=== PATIENT | female | born 1955 | race Caucasian/White ===

== ENCOUNTER 2016-10-25 06:14 | Outpatient (CLI) | payer BC ==
[~2016-10-25] VITALS: Ht 170.2 cm; Wt 82.6 kg
[2016-10-25] MEDS ORDERED: LOSA100T28 PO (09:37)
[2016-10-25] MEDS ORDERED: PARO20TA5 PO (09:37)
== END 2016-10-25 09:42 ==
LOC: PREOP 06:14
PROVIDERS: ATTEND Surgery
DX: Z01.818 Encounter for other preprocedural examination (principal); K92.1 Melena; Z80.0 Family history of malignant neoplasm of digestive organs

== ENCOUNTER 2016-10-27 13:10 | Day surgery (SDC) | payer BC ==
[~2016-10-27] VITALS: Ht 170.2 cm; Wt 82.6 kg
[~2016-10-27 13:10] MED LIST: LOSA100T28 PO; PARO20TA5 PO
--- OUTSIDE RECORDS SUMMARY | 2016-10-27 13:14 | XMS REPORT | Continuity of Care Document ---
Author Author [facility] Organization [facility] Address Unknown Phone Unavailable Allergies Active Description Code Type Severity Reaction Onset Reported/Identified Relationship to Patient Clinical Status Yes NKANo Known Allergies NKA Miscellaneous Allergy Unknown N/ A 12/06/2005 Medications Problems Date Dx Coded Attending Type Code Diagnosis Diagnosed By 08/31/2014 Ot V76.12 08/31/2014 Ot 787.91 08/31/2014 Ot 789.06 09/07/2014 DINO ARNOLD, ALISHA Ot 790.5 09/18/2014 DINO ARNOLD, ALISHA Ot 790.5 Procedures Results Encounters ACCT No. Visit Date/Time Discharge Status Pt. Type Provider Facility Loc./Unit Complaint [id number] 08/31/2014 10:28:00 2014 23:59:59 CLS Outpatient DINO ARNOLD, ALISHA [facility] CARD [id number] 08/31/2014 10:27:00 Document Registration [id number] 08/31/2014 10:27:00 Document Registration
[2016-10-27] MEDS ORDERED: LIDOCAINE JELLY 2% (XYLOCAINE) 5 ML TUBE MM PRN (13:15)
[2016-10-27] MEDS ORDERED: NS IV 500 ML 500 ML IV PRN (13:15)
[2016-10-27 13:20] VITALS: BP 117/70
--- NOTE | 2016-10-27 13:28 | Conscious Sedation/ASA ---
Conscious Sedation Pre-Proced Time Reviewed: 13:20 ASA Class: 2 Airway Mallampati Classification: (ham[place] appropriate class) I. II. III, IV Lungs Heart ASA score ASA 1: a normal healthy patient ASA 2: a patient with a mild systemic disease (mid diabetes, controlled hypertension, obesity ASA 3: a patient with a severe systemic disease that limits activity (angina , COPD, prior Myocardial infarction) ASA 4: a patient with an incapacitating disease that is a constant threat to life (CHF, renal failure) ASA 5: a moribund patient not expected to survive 24 hrs. (ruptured aneurysm) ASA 6: a declared brain patient whose organs are being harvested. For emergent operations, add the letter E after the classification Grade 2 Sedation Plan: Analgesia, Amnesia, Plan communicated to team members, Discussed options with patient/fam, Discussed risks with patient/fam Note The patient is an appropriate candidate to undergo the planned procedure, sedation, and anesthesia. The patient immediately re-assessed prior to indication. RICHELLE DEMARCO MD Oct 27, 2016 1:28 pm
--- NOTE | 2016-10-27 13:29 | Progress Note-Pre Operative ---
Pre-Operative Progress Note H&P Reviewed The H&P was reviewed, patient examined and no changes noted. Date Seen by Provider: Oct 27, 2016 Time Seen by Provider: 13:20 Date H&P Reviewed: Oct 27, 2016 Time H&P Reviewed: 13:20 Pre-Operative Diagnosis: family hx colon ca, rectal bleed RICHELLE DEMARCO MD Oct 27, 2016 1:29 pm
[2016-10-27] MEDS ORDERED: ACETAMINOPHEN 325 MG TABLET/CAPLET (TYLENOL) PO PRN (13:30)
[2016-10-27] MEDS ORDERED: HYDROcodone/APAP 5 MG/325 MG (LORTAB) TAB PO PRN (13:30)
[2016-10-27] MEDS ORDERED: morphine INJ 10 MG/ML 1ML (SYR OR VIAL) IV PRN (13:30)
[2016-10-27] MEDS ORDERED: ONDANSETRON 4 MG/2 ML (SDV) Z0FRAN IV PRN (13:30)
[2016-10-27] MEDS ORDERED: MIDAZOLAM 2 MG/2 ML (VERSED) VIAL ONE ×6 (14:43→15:22)
[2016-10-27] MEDS ORDERED: fentaNYL INJECTION 100 MCG/2 ML AMP ONE ×2 (14:43)
[2016-10-27] MEDS ORDERED: LIDOCAINE JELLY 2% (XYLOCAINE) 5 ML TUBE ONE (14:44)
[2016-10-27] MEDS: fentaNYL INJECTION 100 MCG/2 ML AMP IVP PRN ×4 (15:03→15:34)
[2016-10-27] MEDS: MIDAZOLAM 2 MG/2 ML (VERSED) VIAL IVP PRN ×5 (15:04→15:33)
--- NOTE | 2016-10-27 15:47 | Progress Note-Post Operative ---
Post-Operative Progess Note Surgeon (s)/Office Support (s) Surgeon RICHELLE DEMARCO MD Office Support: none Pre-Operative Diagnosis family hx colon ca, rectal bleed Post-Operative Diagnosis chronic stage 2 ext and int hemorrhoids. Procedure & Operative Findings Date of Procedure 10/27/16 Procedure Performed/Findings Colonoscopy Anesthesia Type CS Estimated Blood Loss Estimated blood loss (mL): minimal Specimens/Packing Specimens Removed none RICHELLE DEMARCO MD Oct 27, 2016 3:47 pm
--- NOTE | 2016-10-27 15:48 | Discharge Inst-Surgical ---
D/C Lap Instructions-DAV Follow Up 5 years Activity as tolerated High Fiber Diet 25g or more per day Avoid Alcohol, Caffeine, Spicy [place] and Acid foods. Drink 64 fluid oz or more of fluids per day. Symptoms to Report: Fever over 101 degree F, Nausea/Vomiting If any problems/questions: Contact your physician or go to Emergency Room RICHELLE DEMARCO MD Oct 27, 2016 3:48 pm
[2016-10-27 16:05] VITALS: BP 111/63
[2016-10-27 16:35] VITALS: BP 142/76
[2016-10-27 16:40] VITALS: BP 142/76
--- NOTE | 2016-10-29 14:50 | OPERATIVE REPORT ---
DATE OF SERVICE: 10/27/2016 ATTENDING PRIMARY CARE PHYSICIAN: Dr. Sridhar Olsen. PREOPERATIVE DIAGNOSES: Family history of colon cancer, rectal bleeding. POSTOPERATIVE DIAGNOSIS: Chronic stage II external and internal hemorrhoids. The remainder of the rectum and colon were normal. PROCEDURE PERFORMED: Colonoscopy. SURGEON: Richelle Demarco MD ANESTHESIA: Conscious sedation. ESTIMATED BLOOD LOSS: Minimal. FINDINGS: Chronic stage II external and internal hemorrhoids, not actively edematous, nor inflamed, and no bleeding. The remainder of the rectum and colon were normal. There were no diverticulosis as well as no mucosal inflammatory changes or any active bleeding identified. DISPOSITION: The patient tolerated the procedure well. INDICATIONS: The patient is a 60-year-old female, who reports that she has had noticed some small amounts of self-limited red blood per rectum easily on the toilet tissue after having a bowel movement. She also reports that she does have occasional episodes of constipation. She has had colonoscopies done in the past with the last one done in 2011, which she believes to be normal. She does have a family history of colon cancer as well. DESCRIPTION OF PROCEDURE: The patient was brought to the endoscopy suite, laid in the left lateral decubitus position. After adequate IV pain and sedating medications and conscious sedation anesthesia, a digital rectal examination was performed. Chronic stage II external and internal hemorrhoids were identified, which were not actively edematous, nor inflamed and no bleeding. Normal sphincter tone was felt and there were no palpable masses. The endoscope was then intubated into the anus and rectum was gently insufflated. The endoscope was then advanced to the valves of [place]ero in the rectum with no polyps or any neoplasm identified. We then proceeded through the sigmoid colon where no diverticulosis identified. The endoscope was then advanced through the remainder of the descending, transverse, and ascending colon as well as to the cecum. These segments were normal. There were no polyps or any neoplasm identified as well as no mucosal inflammatory changes nor any active bleeding identified throughout the colon or rectum. The endoscope was then slowly withdrawn while taking a second look and suctioning of residual air with no additional findings. The patient tolerated the procedure well. We will have her continue with medical management with a high-fiber diet with at least 25 to 30 grams of fiber per day as well as at least 64 fluid ounces of water daily to promote soft stools on a daily basis. Due to her family history of colon cancer, we will recommend a followup colonoscopy in 5 years. Job ID: [id number] DocumentID: [id number] Dictated Date: 10/27/2016 15:47:05 Hat Mender Date: 10/28/2016 16:02:32 Dictated By: RICHELLE DEMARCO MD MTDD
== END 2016-10-27 16:40 | disposition home or self-care (01) ==
LOC: ENDO 13:10
PROVIDERS: ATTEND Surgery
DX: K62.5 Hemorrhage of anus and rectum (principal); K64.1 Second degree hemorrhoids; Z80.0 Family history of malignant neoplasm of digestive organs; I10 Essential (primary) hypertension; Z79.899 Other long term (current) drug therapy

== ENCOUNTER 2019-12-12 13:04 | Outpatient (RCR) | payer BC ==
[~2019-12-12 13:04] MED LIST changes: -LOSA100T28 PO; +LOSA100T57 PO
[2019-12-15] MEDS ORDERED: BACL5TAB PO (16:25)
[2019-12-15] MEDS ORDERED: TRAM50TA3 PO (16:25)
[2019-12-15] MEDS ORDERED: MELO15TA39 PO (16:25)
[2019-12-18] MEDS ORDERED: CALC300T4 PO (11:30)
[2019-12-18] MEDS ORDERED: IBUP-2473 PO (11:34)
[2019-12-24] MEDS ORDERED: TRAM50TA3 PO (11:57)
== END 2019-12-31 | disposition home or self-care (01) ==
PROVIDERS: ATTEND Orthopaedic Surgery Sports Medicine
DX: S32.512A Fracture of superior rim of left pubis, initial encounter for closed fracture (principal); X58.XXXA Exposure to other specified factors, initial encounter

== ENCOUNTER 2019-12-14 23:02 | Inpatient (IN) | payer BC ==
[~2019-12-14] VITALS: Ht 170 cm; Wt 90.6 kg
[2019-12-14] MEDS ORDERED: ONDANSETRON 4 MG/2 ML (SDV) Z0FRAN IVP ONE (23:15)
[2019-12-14] MEDS ORDERED: FAMOTIDINE 20MG/2ML IV (PEPCID) IVP ONE (23:15)
[2019-12-14] MEDS ORDERED: PANTOPRAZOLE 40 MG (PROTONIX) VIAL IV ONE (23:15)
--- NOTE | 2019-12-14 23:23 | NUR ---
Bruising and mild swelling noted to patient's L confucianism. Patient reports when she was in the restroom she became dizzy and hit her head on the bathroom counter.
[2019-12-14 23:25] LABS: BASOPHILS % (AUTO) 1 % (0-10); EOSINOPHILS # (AUTO) 0.3 10^3/uL (0.0-0.3); EOSINOPHILS % (AUTO) 9 % (0-10); HEMATOCRIT 24 % (35-52); LYMPHOCYTES # (AUTO) 0.9 10^3/uL (1.0-4.0); LYMPHOCYTES % (AUTO) 24 % (12-44); MEAN CORPUSCULAR HEMOGLOBIN 33 pg (25-34); MEAN CORPUSCULAR HGB CONC 34 g/dL (32-36); MEAN CORPUSCULAR VOLUME 97 fL (80-99); MEAN PLATELET VOLUME 9.1 fL (9.0-12.2); MONOCYTES # (AUTO) 0.4 10^3/uL (0.0-1.0); MONOCYTES % (AUTO) 11 % (0-12); NEUTROPHILS # (AUTO) 2.1 10^3/uL (1.8-7.8); NEUTROPHILS % (AUTO) 56 % (42-75); PLATELET COUNT 225 10^3/uL (130-400); WHITE BLOOD COUNT 3.8 10^3/uL (4.3-11.0)
--- NOTE | 2019-12-14 23:30 | NUR ---
2 liters NS infusing per EMS complete
[2019-12-14 23:46] LABS: ALBUMIN 3.1 GM/DL (3.2-4.5); CHLORIDE 99 MMOL/L (98-107); INR 1.2 (0.8-1.4); POTASSIUM 3.7 MMOL/L (3.6-5.0); SODIUM 130 MMOL/L (135-145)
[2019-12-14 23:47] LABS: CALCIUM 7.7 MG/DL (8.5-10.1)
[2019-12-14 23:49] LABS: GLUCOSE 229 MG/DL (70-105); TOTAL PROTEIN 4.7 GM/DL (6.4-8.2)
[2019-12-14 23:50] LABS: BILIRUBIN,TOTAL 0.4 MG/DL (0.1-1.0); CARBON DIOXIDE 16 MMOL/L (21-32)
[2019-12-14 23:52] LABS: ALKALINE PHOSPHATASE 81 U/L (40-136); CREATININE SERUM 0.73 MG/DL (0.60-1.30); GFR ESTIMATED > 60
[2019-12-14 23:53] LABS: BUN/CREATININE RATIO 23
[2019-12-14 23:55] LABS: ALANINE AMINOTRANSFERASE 11 U/L (0-55); MAGNESIUM 1.7 MG/DL (1.6-2.4)
[2019-12-15] VITALS (37 sets, daily range): BP systolic 64–160; BP diastolic 39–86
[2019-12-15] MEDS ORDERED: NS IV 1000 ML 1,000 ML ONE ×3 (00:01→22:40)
--- NOTE | 2019-12-15 00:05 | NUR ---
BP 81/44. Dr Cash advises to give 1 liter LR while waiting for blood products to be crossmatched.
--- NOTE | 2019-12-15 00:06 | NUR ---
Order changed to normal saline instead of LR
[2019-12-15] MEDS: NS IV 1000 ML 1,000 ML IV SCH ×2 (00:27→02:42)
--- NOTE | 2019-12-15 00:37 | NUR ---
1st unit of blood transfused. BP now 93/74
[2019-12-15] MEDS ORDERED: OCTREOTIDE INJECTION 50 MCG in NS (IVPB) 50 ML IV ONE (00:45)
[2019-12-15] MEDS ORDERED: OCTREOTIDE INJECTION 500 MCG in NS (IVPB) 99 ML IV SCH (00:45)
--- NOTE | 2019-12-15 01:06 | NUR ---
2nd unit of blood transfused at this time. BP 94/61
[2019-12-15] MEDS ORDERED: NS IV 500 ML 500 ML IV SCH (01:15)
--- NOTE | 2019-12-15 01:15 | NUR ---
Jaqui Leigh - patient's daughter
[2019-12-15] MEDS ORDERED: TRANEXAMIC ACID INJECTION 1,000 MG in NS (IVPB) 250 ML IV SCH (01:30)
[2019-12-15] MEDS ORDERED: TRANEXAMIC ACID INJECTION 1,000 MG in NS (IVPB) 100 ML IV ONE (01:30)
[2019-12-15] MEDS ORDERED: NS 100 ML (IVPB) BAG IV ONE (02:15)
[2019-12-15] MEDS ORDERED: CATHETER FLUSH 10 ML SYR IV PRN (02:15)
[2019-12-15] MEDS ORDERED: IOHEXOL 350 MG/ML 100 ML (OMNIPAQUE 350) VIAL IV ONE (02:15)
[2019-12-15] MEDS ORDERED: HOLD METFORMIN - RECEIVED CONTRAST 20 ML VIAL IV SCH (02:15)
--- NOTE | 2019-12-15 02:45 | NUR ---
Dr Ahuja at bedside
--- NOTE | 2019-12-15 02:48 | ED GI ---
General Chief Complaint: Abdominal/GI Problems Stated Complaint: GI BLEED Nursing Triage Note: Pt to ED room1 via [facility] from home after vomiting blood. EMS and pt report large tarry stool and bright red emesis upon arrival. EMS EBL 1000mL. EMS reports BP of 60/40 en route. 2L NS infusing upon arrival to ED. Sepsis Screen: No Definite Risk Source of Information: Patient, EMS Exam Limitations: No Limitations History of Present Illness Date Seen by Provider: Dec 14, 2019 Time Seen by Provider: 23:10 Initial Comments This 64-year-old woman presents to the emergency room via EMS emergently due to hematemesis, hematochezia, and hypotension. Patient was initially minimally responsive and had only a palpable carotid pulse with no measurable blood pressure for EMS. After about 500 mL of fluid resuscitation she became alert again and began to talk. She was hypotensive for EMS reports blood pressure measurements could be obtained. Patient denies use of any blood thinning medications or any trauma. Symptoms started mid afternoon with vomiting and diarrhea. She suspected blood in both emesis and stool. She fell asleep or passed out for about 3 hours and then woke with persistent symptoms. Family found her in the state described above and activated EMS. EMS contacted to the emergency room prior to patient's arrival. Dr. Ahuja was then given notice the patient was arriving. Allergies and Home Medications Allergies Coded Allergies: No Known Drug Allergies (Unverified , 10/25/16) Home Medications Losartan Potassium 100 Mg Tablet, 100 MG PO DAILY, (Reported) Paroxetine HCl 20 Mg Tablet, 20 MG PO HS, (Reported) Patient Home Medication List Home Medication List Reviewed: Yes Review of Systems Review of Systems Constitutional: see HPI EENTM: No Symptoms Reported Respiratory: No Symptoms Reported Cardiovascular: See HPI Gastrointestinal: See HPI Genitourinary: No Symptoms Reported Musculoskeletal: no symptoms reported Skin: no symptoms reported Psychiatric/Neurological: See HPI Endocrine: No Symptoms Reported Hematologic/Lymphatic: See HPI Past Cvhgdjv-Qexqap-Kklsdu Hx Past Med/Social Hx: Reviewed Nursing Past Med/Soc Hx Patient Social History Alcohol Use: Rarely Uses Recreational Drug Use: No Smoking Status: Never a Smoker Recent Foreign Travel: No Contact w/Someone Who Travel: No Recent Infectious Disease Expo: No Recent Hopitalizations: No Seasonal Allergies Seasonal Allergies: Yes Past Medical History Surgeries: Yes Hysterectomy, Tonsillectomy Respiratory: No Cardiac: Yes Hypertension Neurological: No 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 0.0oz. 82.747216nl; 29.00 BMI Method: General Appearance: WD/WN, no apparent distress, other (decreased responsiveness, improving with fluid resuscitation) HEENT: PERRL/EOMI, normal ENT inspection, other (dry mucous membranes) Neck: normal inspection Respiratory: lungs clear, normal breath sounds, no respiratory distress Cardiovascular: regular rate, rhythm, no edema, no murmur Gastrointestinal: normal bowel sounds, non tender, soft Extremities: normal inspection, no pedal edema Neurologic/Psychiatric: protection analyst II-XII nml as tested, no motor/sensory deficits, alert, normal mood/affect, oriented x 3 Skin: normal color, warm/dry Progress/Results/Core Measures Results/Orders Lab Results Laboratory Tests Test 12/14/19 23:10 12/15/19 02:49 Range/Units White Blood Count 3.8 L 4.3-11.0 10^3/uL Red Blood Count 2.43 L 3.80-5.11 10^6/uL Hemoglobin 8.0 L 8.4 L 11.5-16.0 g/dL Hematocrit 24 L 24 L 35-52 % Mean Corpuscular Volume 97 80-99 fL Mean Corpuscular Hemoglobin 33 25-34 pg Mean Corpuscular Hemoglobin Concent 34 32-36 g/dL Red Cell Distribution Width 11.3 10.0-14.5 % Platelet Count 225 130-400 10^3/uL Mean Platelet Volume 9.1 9.0-12.2 fL Immature Granulocyte % (Auto) 1 % Neutrophils (%) (Auto) 56 42-75 % Lymphocytes (%) (Auto) 24 12-44 % Monocytes (%) (Auto) 11 0-12 % Eosinophils (%) (Auto) 9 0-10 % Basophils (%) (Auto) 1 0-10 % Neutrophils # (Auto) 2.1 1.8-7.8 10^3/uL Lymphocytes # (Auto) 0.9 L 1.0-4.0 10^3/uL Monocytes # (Auto) 0.4 0.0-1.0 10^3/uL Eosinophils # (Auto) 0.3 0.0-0.3 10^3/uL Basophils # (Auto) 0.0 0.0-0.1 10^3/uL Immature Granulocyte # (Auto) 0.0 0.0-0.1 10^3/uL Prothrombin Time 16.0 H 12.2-14.7 SEC INR Comment 1.2 0.8-1.4 Activated Partial Thromboplast Time 27 24-35 SEC Sodium Level 130 L 135-145 MMOL/L Potassium Level 3.7 3.6-5.0 MMOL/L Chloride Level 99 98-107 MMOL/L Carbon Dioxide Level 16 L 21-32 MMOL/L Anion Gap 15 H 5-14 MMOL/L Blood Urea Nitrogen 17 7-18 MG/DL Creatinine 0.73 0.60-1.30 MG/DL Estimat Glomerular Filtration Rate > 60 BUN/Creatinine Ratio 23 Glucose Level 229 H 70-105 MG/DL Calcium Level 7.7 L 8.5-10.1 MG/DL Corrected Calcium 8.4 L 8.5-10.1 MG/DL Magnesium Level 1.7 1.6-2.4 MG/DL Total Bilirubin 0.4 0.1-1.0 MG/DL Aspartate Amino Transf (AST/SGOT) 13 5-34 U/L Alanine Aminotransferase (ALT/SGPT) 11 0-55 U/L Alkaline Phosphatase 81 40-136 U/L Total Protein 4.7 L 6.4-8.2 GM/DL Albumin 3.1 L 3.2-4.5 GM/DL My Orders Orders - HAYDEE CHANCE MD Cbc With Automated Diff (12/14/19 23:13) Comprehensive Metabolic Panel (12/14/19 23:13) Magnesium (12/14/19 23:13) Protime With Inr (12/14/19 23:13) Partial Thromboplastin Time (12/14/19 23:13) Ua Culture If Indicated (12/14/19 23:13) Pantoprazole Injection (Protonix Injecti (12/14/19 23:15) Famotidine Injection (Pepcid Injection) (12/14/19 23:15) Ondansetron Injection (Zofran Injectio (12/14/19 23:15) Red Cells Leukocytes Reduced (12/14/19 23:13) Type And Screen (12/14/19 23:13) Ns Iv 1000 Ml (Sodium Chloride 0.9%) (12/15/19 00:01) Ct Head/Cervical Spine Wo (12/15/19 00:09) Red Cells Leukocytes Reduced (12/15/19 00:26) Ns (Ivpb) (Sodium C... W/Octreotide Inj (12/15/19 00:45) Octreotide Injection (Sandostatin Inje (12/15/19 00:45) Ct Abdomen/Pelvis W (12/15/19 00:59) Fresh Frozen Plasma (12/15/19 01:13) Ns Iv 500 Ml (Sodium Chloride 0.9%) (12/15/19 01:15) Ns (Ivpb) (Sodium C... W/Tranexamic Acid (12/15/19 01:30) Tranexamic Acid Injection (Cyklokapron I (12/15/19 01:30) Iohexol Injection (Omnipaque 350 Mg/Ml 1 (12/15/19 02:15) Received Contrast (Hold Metformin- Contr (12/15/19 02:15) Sodium Chloride Flush (Catheter Flush Sy (12/15/19 02:15) Ns (Ivpb) (Sodium Chloride 0.9% Ivpb Bag (12/15/19 02:15) Ns Iv 1000 Ml (Sodium Chloride 0.9%) (12/15/19 02:45) Hemoglobin And Hematocrit (12/15/19 02:48) Platelet Pheresis Lr (12/15/19 02:53) Succinylcholine Injection (Succinylcholi (12/15/19 02:51) Propofol Injection (Diprivan Injection) (12/15/19 02:51) Midazolam Injection (Versed Injection) (12/15/19 02:52) Lidocaine 2% Pf 5 Ml (Xylocaine 2% Pf) (12/15/19 02:52) Medications Given in ED Vital Signs/I&O 12/14/19 12/15/19 12/15/19 12/15/19 23:11 00:27 00:37 00:56 Temp 36.4 35.4 35.8 Pulse 101 82 82 78 Resp 28 20 24 B/P (MAP) 99/64 (76) 89/50 93/74 97/54 Pulse Ox 96 98 100 O2 Delivery Room Air Room Air Room Air Room Air 12/15/19 12/15/19 12/15/19 01:05 02:34 02:40 Temp 36.2 37.1 Pulse 81 82 85 Resp 20 20 B/P (MAP) 94/61 99/62 99/62 Pulse Ox 100 100 100 O2 Delivery Room Air Room Air Blood Pressure Mean: 74 Progress Progress Note : Progress Note There was persistent rosacea in between myself and Dr. Ahuja throughout the patient's ER care. Ration is initially responded well to 2 L of IV fluids. However, blood pressure again began to drop. 2 units of PRBC were transfused. In the meantime she was also treated with Pepcid, Protonix, TXA, and octreotide. even after the transfusions she again had rebound hypertension. A unit of plasma and a unit of platelets were ordered in addition to a third unit of blood. In the meantime she received another partial bolus of IV fluids. After patient failed resuscitation with 2 units of PRBC and 2 L of IV crystalloids, Dr. Ahuja was called in to perform emergent endoscopy. Patient was taken directly from the ER to surgery/endoscopy. She was then admitted to the ICU. CT of the abdomen and pelvis performed in the ER was suggestive of duodenal ulcer. There was concern about possible head injury during patient's episode of collapse. CT of the head and C-spine was obtained which showed no injury. Diagnostic Imaging Diagonstic Imaging: CT Plain Films/CT/US/NM/MRI: c-spine, head Comments NAME: [facility] REC#: [id number] PT STATUS: ADM IN : 1955 PHYSICIAN: HAYDEE CHANCE MD ADMIT DATE: 12/15/19/ICU Signed Date of Exam:12/15/19 CT HEAD/CERVICAL SPINE WO PROCEDURE: CT head and CT cervical spine without contrast. TECHNIQUE: Multiple contiguous axial images were obtained through the brain and cervical spine without the use of intravenous contrast. Sagittal and coronal reformations through the cervical spine were then performed. Auto Exposure Controls were utilized during the CT exam to meet ALARA standards for radiation dose reduction. INDICATION: Head and neck pain after fall. FINDINGS: The ventricles and sulci are within normal limits. No hydrocephalus. No midline shift. No mass, hemorrhage or extra-axial fluid collection. Calvarium is intact. Sinuses and mastoid air cells are clear. There is straightening of the normal cervical lordosis. There is multilevel degenerative disc disease and posterior facet arthropathy. There is no acute fracture or traumatic subluxation. Odontoids intact. Lateral masses well aligned. Prevertebral soft tissues are within normal limits. Lung apices are clear. IMPRESSION: No acute intracranial abnormality. Cervical spondylosis and multilevel degenerative disc disease without acute fracture or traumatic subluxation. Dictated by: Dictated on workstation # [id number] Dict: 12/15/19628 Trans: 12/15/19824 [facility] [id number] Interpreted by: STUART TRAORE MD Electronically signed by: STUART TRAORE MD 12/15/19824 Reviewed: Reviewed by Vt Diagonstic Imaging: CT Plain Films/CT/US/NM/MRI: abdomen, pelvis Comments NAME: TELLO [facility] REC#: [id number] PT STATUS: ADM IN : 1955 PHYSICIAN: HAYDEE CHANCE MD ADMIT DATE: 12/15/19/ICU Signed Date of Exam:12/15/19 CT ABDOMEN/PELVIS W PROCEDURE: CT abdomen and pelvis with contrast. TECHNIQUE: Multiple contiguous axial images were obtained through the abdomen and pelvis after administration of intravenous contrast. Auto Exposure Controls were utilized during the CT exam to meet ALARA standards for radiation dose reduction. All CT scans use one or more of the following dose optimizing techniques: automated exposure control, MA and/or KvP adjustment based on patient size and exam type or iterative reconstruction. INDICATION: GI bleed. FINDINGS: The heart size is normal. The lung bases are clear. The liver is normal in size without focal lesions. Gallbladder is unremarkable. No biliary duct dilatation. Spleen is normal. Pancreas, adrenal glands and kidneys are unremarkable. The aorta is nonaneurysmal. There is some heterogeneous fluid in the gastric antrum. Along the posterior aspect of the duodenal bulb is a questionable ulcer measuring 10 mm. This extends between the proximal posterior wall of the duodenum and the neck of the pancreas. Some trace fluid. Bowel gas pattern is otherwise nonspecific. There are degenerative changes in the spine. IMPRESSION: Findings highly suspect for a duodenal bulb ulcer just distal to the pylorus along the posterior wall. This is best seen on axial image 31 and 32. Recommend further evaluation with endoscopy. Dictated by: Dictated on workstation # [id number] Dict: 12/15/19625 Trans: 12/15/19847 [facility] [id number] Interpreted by: STUART TRAORE MD Electronically signed by: STUART TRAORE MD 12/15/19847 Reviewed: Reviewed by Vt Critical Care Note Critical Care Start Time: 23:10 Stop Time: 02:45 Departure Communication (Admissions) Time/Spoke to Admitting Phy: 02:08 Dr. Ahuja Impression Primary Impression: Severe anemia Additional Impressions: Upper GI bleed Hypovolemic shock Disposition: ADMITTED INPATIENT Condition: Critical Admissions Decision to Admit Reason: Admit from ER (General) Decision to Admit/Date: Dec 14, 2019 Time/Decision to Admit Time: 23:10 Departure-Patient Inst. Referrals: LAUREN DAWSON (PCP) Primary Care Physician HAYDEE CHANCE MD Dec 15, 2019 02:47
[2019-12-15] MEDS ORDERED: SUCCINYLCHOLINE INJ 100 MG/5 ML SYR/VIAL ONE (02:51)
[2019-12-15] MEDS ORDERED: proPOfol 200 MG/20 ML (DIPRIVAN) VIAL IV ONE (02:51)
[2019-12-15] MEDS ORDERED: LIDOCAINE PF 2% 5 ML (XYLOCAINE) VIAL ONE (02:52)
[2019-12-15] MEDS ORDERED: MIDAZOLAM 2 MG/2 ML (VERSED) VIAL ONE (02:52)
[2019-12-15 02:53] LABS: HEMOGLOBIN 8.4 g/dL (11.5-16.0)
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
[2019-12-15] MEDS ORDERED: LACTATED RINGERS 1,000 ML IV ONE (03:13)
[2019-12-15] MEDS: LACTATED RINGERS 1,000 ML IV SCH ×4 (03:20→19:44)
[2019-12-15] MEDS ORDERED: ONDANSETRON 4 MG/2 ML (SDV) Z0FRAN ONE ×2 (03:27→20:05)
[2019-12-15] MEDS ORDERED: PIPERACILLIN/TAZOBACTAM (BULK) 4.5 GM in NS (IVPB) 100 ML IV SCH (03:45)
[2019-12-15] MEDS ORDERED: PIPERACILLIN/TAZOBACTAM 4.5 GM in NS (IVPB) 100 ML IV ONE (04:00)
--- NOTE | 2019-12-15 04:06 | Anesthesia-General Post-Op ---
General Patient Condition Mental Status/LOC: Same as Preop Cardiovascular: Satisfactory Nausea/Vomiting: Absent Respiratory: Satisfactory Pain: Controlled Complications: Absent Post Op Complications Complications None Follow Up Care/Instructions Patient Instructions None needed. Anesthesia/Patient Condition Patient Condition Patient is doing well, no complaints, stable vital signs, no apparent adverse anesthesia problems. No complications reported per nursing. D/C home per [facility] Criteria: JOSÉ Rowley CRNA Dec 15, 2019 04:06
[2019-12-15] MEDS ORDERED: PIPERACILLIN/TAZO 4.5 GM VIAL (ZOSYN) IV ONE (04:29)
--- NOTE | 2019-12-15 04:45 | NUR ---
RECEIVED REPORT FROM [facility] RECORDER, PT POST EGD FOR GI BLEED
[2019-12-15] MEDS ORDERED: PANTOPRAZOLE INJECTION 200 MG in NS (IVPB) 100 ML IV SCH (05:00)
[2019-12-15] MEDS: MAGNESIUM 1 GM/100 ML IVPB 100 ML IV SCH (06:11)
[2019-12-15] MEDS: POTASSIUM CL 10MEQ/50ML IVPB 50 ML IV SCH (06:11)
[2019-12-15] MEDS: KCL 20 MEQ TAB (K-DUR) PO SCH (06:11)
[2019-12-15 06:37] LABS: BASOPHILS % (AUTO) 1 % (0-10); EOSINOPHILS % (AUTO) 1 % (0-10); HEMATOCRIT 27 % (35-52); HEMOGLOBIN 8.9 g/dL (11.5-16.0); LYMPHOCYTES # (AUTO) 0.5 10^3/uL (1.0-4.0); LYMPHOCYTES % (AUTO) 14 % (12-44); MEAN CORPUSCULAR HEMOGLOBIN 32 pg (25-34); MEAN CORPUSCULAR HGB CONC 34 g/dL (32-36); MEAN CORPUSCULAR VOLUME 96 fL (80-99); MEAN PLATELET VOLUME 9.1 fL (9.0-12.2); MONOCYTES # (AUTO) 0.5 10^3/uL (0.0-1.0); MONOCYTES % (AUTO) 13 % (0-12); NEUTROPHILS # (AUTO) 2.5 10^3/uL (1.8-7.8); NEUTROPHILS % (AUTO) 71 % (42-75); PLATELET COUNT 186 10^3/uL (130-400); WHITE BLOOD COUNT 3.5 10^3/uL (4.3-11.0)
--- NOTE | 2019-12-15 06:39 | Diagnostic Imaging Report ---
PROCEDURE: CT abdomen and pelvis with contrast. TECHNIQUE: Multiple contiguous axial images were obtained through the abdomen and pelvis after administration of intravenous contrast. Auto Exposure Controls were utilized during the CT exam to meet ALARA standards for radiation dose reduction. All CT scans use one or more of the following dose optimizing techniques: automated exposure control, MA and/or KvP adjustment based on patient size and exam type or iterative reconstruction. INDICATION: GI bleed. FINDINGS: The heart size is normal. The lung bases are clear. The liver is normal in size without focal lesions. Gallbladder is unremarkable. No biliary duct dilatation. Spleen is normal. Pancreas, adrenal glands and kidneys are unremarkable. The aorta is nonaneurysmal. There is some heterogeneous fluid in the gastric antrum. Along the posterior aspect of the duodenal bulb is a questionable ulcer measuring 10 mm. This extends between the proximal posterior wall of the duodenum and the neck of the pancreas. Some trace fluid. Bowel gas pattern is otherwise nonspecific. There are degenerative changes in the spine. IMPRESSION: Findings highly suspect for a duodenal bulb ulcer just distal to the pylorus along the posterior wall. This is best seen on axial image 31 and 32. Recommend further evaluation with endoscopy. Dictated by: Dictated on workstation # [id number]
--- NOTE | 2019-12-15 06:40 | Diagnostic Imaging Report ---
PROCEDURE: CT head and CT cervical spine without contrast. TECHNIQUE: Multiple contiguous axial images were obtained through the brain and cervical spine without the use of intravenous contrast. Sagittal and coronal reformations through the cervical spine were then performed. Auto Exposure Controls were utilized during the CT exam to meet ALARA standards for radiation dose reduction. INDICATION: Head and neck pain after fall. FINDINGS: The ventricles and sulci are within normal limits. No hydrocephalus. No midline shift. No mass, hemorrhage or extra-axial fluid collection. Calvarium is intact. Sinuses and mastoid air cells are clear. There is straightening of the normal cervical lordosis. There is multilevel degenerative disc disease and posterior facet arthropathy. There is no acute fracture or traumatic subluxation. Odontoids intact. Lateral masses well aligned. Prevertebral soft tissues are within normal limits. Lung apices are clear. IMPRESSION: No acute intracranial abnormality. Cervical spondylosis and multilevel degenerative disc disease without acute fracture or traumatic subluxation. Dictated by: Dictated on workstation # [id number]
[2019-12-15 06:59] LABS: CHLORIDE 105 MMOL/L (98-107); POTASSIUM 4.4 MMOL/L (3.6-5.0); SODIUM 135 MMOL/L (135-145)
[2019-12-15 07:00] LABS: CALCIUM 7.8 MG/DL (8.5-10.1)
[2019-12-15 07:01] LABS: GLUCOSE 110 MG/DL (70-105)
[2019-12-15 07:02] LABS: CARBON DIOXIDE 19 MMOL/L (21-32)
[2019-12-15 07:05] LABS: CREATININE SERUM 0.59 MG/DL (0.60-1.30); GFR ESTIMATED > 60
[2019-12-15 07:06] LABS: BUN/CREATININE RATIO 29
--- NOTE | 2019-12-15 09:18 | Progress Note - Surgery ---
GRUPO MOREL MED STUDENT 12/15/19 0918: Subjective Date Seen by a Provider: Dec 15, 2019 Time Seen by a Provider: 08:25 Subjective/Events-last exam Patient is alert and oriented x 4. VSS per ICU monitor. Denies nausea, vomiting, melena, or hematochezia since admit over night. Mild abdominal discomfort upon palpation of the abdomen. Abdomen soft to palpation. BS positive x 4 quadrants. Tolerating ice chips well. Patient reports a mild headache, fatigue, and mild weakness this morning. Hemoglobin 8.9 this morning. Review of Systems General: Fatigue HEENT: Head Aches Pulmonary: No Dyspnea, No Cough Cardiovascular: No: Chest Pain Gastrointestinal: No: Nausea, Vomiting, Melena, Hematochezia Genitourinary: No Dysuria Neurological: No: Weakness, Numbness Focused Exam Lactate Level 12/15/19 06:20: Lactic Acid Level 1.23 Lactic Acid Level Laboratory Tests Test 12/15/19 06:20 Lactic Acid Level 1.23 MMOL/L (0.50-2.00) Objective Exam Vital Signs Date Time Temp Pulse Resp B/P (MAP) Pulse Ox O2 Delivery O2 Flow Rate FiO2 12/15/19 08:00 37.3 12/15/19 06:00 93 11 108/54 (72) 94 Room Air 12/15/19 05:40 98 Room Air 12/15/19 05:20 37.5 96 136/40 (72) 97 Room Air 12/15/19 05:00 96 119/52 (74) 97 Room Air 12/15/19 04:45 37.8 83 18 121/54 (76) 99 Room Air 12/15/19 03:47 97 12/15/19 03:08 37.1 85 20 99/62 (74) 100 Room Air 12/15/19 02:40 85 20 99/62 100 12/15/19 02:34 37.1 82 20 99/62 100 Room Air 12/15/19 01:05 36.2 81 20 94/61 100 Room Air 12/15/19 00:56 78 24 97/54 100 Room Air 12/15/19 00:37 35.8 82 20 93/74 Room Air 12/15/19 00:27 35.4 82 20 89/50 98 Room Air 12/14/19 23:11 36.4 101 28 99/64 (76 96 Room Air Capillary Refill : Less Than 3 Seconds General Appearance: No Apparent Distress, WD/WN HEENT: PERRL/EOMI Neck: Non Tender, Supple Respiratory: Lungs Clear, Normal Breath Sounds, No Accessory Muscle Use, No Respiratory Distress Cardiovascular: Regular Rate, Rhythm, No Edema Peripheral Pulses: 3+ Carotid (R); 2+ Dorsalis Pedis (R), 2+ Left Dors-Pedis (L), 2+ Radial Pulses (R), 2+ Radial Pulses (L) Gastrointestinal: normal bowel sounds, soft, no organomegaly, no pulsatile mass, tenderness (mild tenderness to deep palpation diffusely), hernia (small umbilical) Neurologic/Psychiatric: Alert, Oriented x3, Normal Mood/Affect Skin: Normal Color, Warm/Dry Results Lab Laboratory Tests 12/14/19 23:10: White Blood Count 3.8L, Red Blood Count 2.43L, Hemoglobin 8.0L, Hematocrit 24L, Mean Corpuscular Volume 97, Mean Corpuscular Hemoglobin 33, Mean Corpuscular Hemoglobin Concent 34, Red Cell Distribution Width 11.3, Platelet Count 225, Mean Platelet Volume 9.1, Immature Granulocyte % (Auto) 1, Neutrophils (%) (Auto) 56, Lymphocytes (%) (Auto) 24, Monocytes (%) (Auto) 11, Eosinophils (%) (Auto) 9, Basophils (%) (Auto) 1, Neutrophils # (Auto) 2.1, Lymphocytes # (Auto) 0.9L, Monocytes # (Auto) 0.4, Eosinophils # (Auto) 0.3, Basophils # (Auto) 0.0, Immature Granulocyte # (Auto) 0.0, Prothrombin Time 16.0H, INR Comment 1.2, Activated Partial Thromboplast Time 27, Sodium Level 130L, Potassium Level 3.7, Chloride Level 99, Carbon Dioxide Level 16L, Anion Gap 15H, Blood Urea Nitrogen 17, Creatinine 0.73, Estimat Glomerular Filtration Rate > 60, BUN/Creatinine Ratio 23, Glucose Level 229H, Calcium Level 7.7L, Corrected Calcium 8.4L, Magne sium Level 1.7, Total Bilirubin 0.4, Aspartate Amino Transf (AST/SGOT) 13, Alanine Aminotransferase (ALT/SGPT) 11, Alkaline Phosphatase 81, Total Protein 4.7L, Albumin 3.1L 12/15/19 02:49: Hemoglobin 8.4L, Hematocrit 24L 12/15/19 06:20: White Blood Count 3.5L, Red Blood Count 2.76L, Hemoglobin 8.9L, Hematocrit 27L, Mean Corpuscular Volume 96, Mean Corpuscular Hemoglobin 32, Mean Corpuscular Hemoglobin Concent 34, Red Cell Distribution Width 12.9, Platelet Count 186, Mean Platelet Volume 9.1, Immature Granulocyte % (Auto) 1, Neutrophils (%) (Auto) 71, Lymphocytes (%) (Auto) 14, Monocytes (%) (Auto) 13H, Eosinophils (%) (Auto) 1, Basophils (%) (Auto) 1, Neutrophils # (Auto) 2.5, Lymphocytes # (Auto) 0.5L, Monocytes # (Auto) 0.5, Eosinophils # (Auto) 0.0, Basophils # (Auto) 0.0, Immature Granulocyte # (Auto) 0.0, Sodium Level 135, Potassium Level 4.4, Chloride Level 105, Carbon Dioxide Level 19L, Anion Gap 11, Blood Urea Nitrogen 17, Creatinine 0.59L, Estimat Glomerular Filtration Rate > 60, BUN/Creatinine Ratio 29, Glucose Level 110H, Calcium Level 7.8L, Lactic Acid Level 1.23 Assessment/Plan Assessment/Plan Assessment/Plan Hypotension Hematemesis Melena Anemia ?Duodenal bulb ulcer with perforation Hyponatremia Pelvic Fx - old Continue to monitor VSS per protocol. Continue IVF maintenance as ordered until taking po well. Continue to monitor hemoglobin and hematocrit. Continue to monitor for further signs and symptoms of bleeding necessitating intervention. Continue IV antibiotics, protonix, and tranexamic acid Clinical Quality Measures DVT/VTE Risk/Contraindication: Risk Factor Score Per Nursin RFS Level Per Nursing on Admit: 2=Moderate SELVIN GEORGES DO 12/22/19 0818: Supervisory-Addendum Brief Verification & Attestation Participated in pt care: other Personally performed: other Care discussed with: other Procedures: n/a I did my own note on this day. GRUPO MOREL MED STUDENT Dec 15, 2019 09:18 SELVIN GEORGES DO Dec 22, 2019 08:18
[2019-12-15] MEDS: FLUCONAZOLE 200 MG/100 ML 50 ML, EMPTY IV BAG (PVC) 1 EA IV SCH ×2 (09:32)
[2019-12-15] MEDS: PANTOPRAZOLE INJECTION 200 MG in NS (IVPB) 100 ML IV SCH (09:32)
--- NOTE | 2019-12-15 09:54 | OPERATIVE REPORT ---
DATE OF SERVICE: 12/15/2019 PREOPERATIVE DIAGNOSES: Hematemesis, hypotension, anemia and melena. POSTOPERATIVE DIAGNOSES: Hematemesis, hypotension, anemia, melena and duodenal bulb ulcer, currently not bleeding. PROCEDURE PERFORMED: EGD. SURGEON: Johnnie Ahuja DO CHILD THERAPIST: None. ANESTHESIA: General endotracheal tube. SPECIMENS: None. BLOOD LOSS: None. FLUIDS: Per anesthesia. POSTOPERATIVE CONDITION: Stable. INDICATION FOR PROCEDURE: The patient is a 64-year-old female, who came in with history of hematemesis just prior to coming in. She was found to be anemic, hemoglobin of 8, hypotensive, also having melanotic stools and with a CT showed questionable duodenal bulb ulcer, which also looked to me like a perforation. FINDINGS: The patient did have a duodenal bulb ulcer. She actually had two, both of them showed a clot, one looked like it was healed already. The other one had clot with some questionable bleeding, but it looked almost like a very, very slow ooze. There was no blood in the stomach and no blood in the duodenum. PROCEDURE NOTE: After informed consent was obtained, the patient was brought to the endoscopy suite. She was intubated and on her back. We placed the EGD scope, placed down the mouth through the esophagus into the stomach. Upon entering into the stomach, we did not see any blood. Pushed just past the pylorus and then anteriorly saw a healed ulcer with sequela of healing and then posteriorly looked like it had gone possibly a perforation. There was a clot, question looked like it may have been some very minimal scant oozing of blood from underneath, but there was no obvious active bleeding. Pushed down past in the duodenum into the second and at least third portion of the duodenum, there was no bleeding here. No ulcers seen throughout here, pulled back. Again, did not really see any active bleeding. Took pictures of all of the ulcers and at this point, I then pulled the scope into the stomach, I retroflexed the scope, saw a small hiatal hernia, did not really see any gastritis and at this point, suctioned all the air out of the stomach and then pulled the scope up the esophagus and out the mouth. The patient tolerated the procedure. She was transferred to ICU for recovery. Job ID: [id number] DocumentID: [id number] Dictated Date: 12/15/2019 03:49:47 Manager Of Construction Date: 12/15/2019 08:17:49 Dictated By: JOHNNIE AHUJA DO
[2019-12-15] MEDS: PIPERACILLIN/TAZO 4.5 GM/NS 100 ML IV SCH ×4 (10:40→17:22)
--- NOTE | 2019-12-15 14:13 | NUR ---
CM/SS: Visited with pt as per Social Service Consult Plan: Pt to return home with no identified services Summary: Pt is sitting up in the recliner at the time of the visit. Pt reports feeling better. Pt is able to explain what happened to her and what brought her into the hospital. 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 Pt indicates she does not need help in the home and that they have been managing prior her hospital stay. She can not think of anything she would need at the time at discharge. She is advised if she would need something, to let the RN know and we can get what is needed. She verbalizes understanding, and thanks this worker for visiting. This worker will follow up.
[2019-12-15] MEDS ORDERED: TRAM50TA3 PO (16:25)
[2019-12-15] MEDS ORDERED: BACL5TAB PO (16:25)
[2019-12-15] MEDS ORDERED: MELO15TA39 PO (16:25)
--- NOTE | 2019-12-15 16:25 | NUR ---
1500 DUE TO CHANGES IN STAFFING CARE OF PT TO Flori VEGA RN, REPORT GIVEN AT BEDSIDE, 1430 DR GEORGES NOTIFIED THAT PT HAD A MODERATE AMOUNT OF DARK OLD STOOL . NO NEW ORDERS RECEIVED. PT'S VSS REMAINED STABLE.
--- NOTE | 2019-12-15 16:27 | NUR ---
I SPOKE WITH THE PTS (SADIA), WENT THRU THE EXT MED HISTORY AND CALLED [facility] TO COMPLETE THE MED REC THE PT HAD MED BOTTLES FOR MOST HER MEDICATIONS IN HER ROOM, HOWEVER WHEN I SPOKE WITH SADIA HE MENTIONED A MEDICATION FOR IBS. WHEN I WAS GOING IN THE PT ROOM ODALYS SAPP SAID THERE WAS MED BOTTLES IN THE ROOM AND ALSO MENTIONED IBS MEDICATIONS. HOWEVER [facility] HAS NEVER FILLED ANY MED FOR IBS, PT WAS NOT ABLE TO GIVE ME ANY INFORMATION ABOUT HER MEDICATIONS AND WHEN I TRIED TO CALL SADIA I HAD TO LEAVE A VOICE MAIL. I WILL FOLLOW UP TOMORROW AND TRY AND FIND OUT ABOUT THE IBS MEDICATION Addendum: 12/18/19 at 1141 by DESIREE MCCURDY [facility] I WAS ABLE TO SPEAK WITH THE PT AND GET CLARIFICATION TO COMPLETE THE MED REC ACCORDING TO THE PT SHE TAKES PAROXETINE 20MG HS FOR IBS (FROM DR. SUN) OTC MEDS: MIHAELA IBUPROFEN- PT SAYS THAT DURING HER CURRENT ADMISSION SHE WAS TOLD THIS MAY HAVE CONTRIBUTED TO SOME OF HER ISSUES THAT CAUSED HER TO BE ADMITTED. I DID WANT TO PUT THIS ON THE MED REC DUE TO THE PT TAKING PRIOR TO COMING IN AND IF THE PROVIDER WANTS IT STOPPED THEM I WANTED IT ON THE MED REC FOR PROPER DISCONTINUATION ON DISCHARGE
--- NOTE | 2019-12-15 16:33 | NUR ---
THIS NURSE NOTIFIED DR GEORGES PT HAS HAD MULTIPLE LARGE BLOODY BOWEL MOVEMENTS. BP HAS DROPPED AND IS NOW 96/54 AND HR IS 88. PT FEELS DIZZY AND IS NOW CONSTANTLY HAVING BLOODY BOWEL MOVEMENTS. NO NEW ORDERS AT THIS TIME. WILL CONTINUE TO MONITOR.
--- NOTE | 2019-12-15 17:30 | NUR ---
THIS NURSE NOTIFIED DR GEORGES PT SBP HAS BEEN 80S-90S. ORDER GIVEN FOR 1 LITER OF LR. SEE ORDER HX. WILL CONTINUE TO MONITOR.
[2019-12-15] MEDS ORDERED: LACTATED RINGERS 1,000 ML IV SCH (17:45)
[2019-12-15] MEDS: ONDANSETRON 4 MG/2 ML (SDV) Z0FRAN IVP PRN (20:05)
[2019-12-15] MEDS ORDERED: ONDANSETRON 4 MG (ZOFRAN) ORAL DISSOLVE TAB ONE (20:05)
[2019-12-15] MEDS ORDERED: NOREPINEPHRINE 4 MG/250 ML 250 ML IV ONE (20:17)
[2019-12-15] MEDS ORDERED: NS IV 500 ML 500 ML ONE ×4 (20:21→22:33)
[2019-12-15 20:43] LABS: HEMOGLOBIN 5.3 g/dL (11.5-16.0)
[2019-12-15] MEDS: NOREPINEPHRINE 4 MG/250 ML 250 ML IV SCH (21:00)
[2019-12-15] MEDS ORDERED: LORazepam INJ 2 MG/ML (ATIVAN) VIAL ONE (22:24)
[2019-12-15] MEDS ORDERED: NS (IVPB) 100 ML ONE ×3 (22:54→23:52)
[2019-12-15] MEDS ORDERED: VASOPRESSIN INJECTION 20 UNIT/ML VIAL ONE (22:54)
[2019-12-15] MEDS ORDERED: PHENYLEPHRINE INJ 10 MG/ML (FOR DRIP KITS ONLY) ONE (23:06)
[2019-12-15] MEDS ORDERED: NS (IVPB) 250 ML ONE (23:06)
[2019-12-15] MEDS ORDERED: BUP/EPI 0.5% 1:200,000 (SENSORCAINE) 30 ML VIAL ONE (23:07)
--- NOTE | 2019-12-15 23:31 | Progress Note-Post Operative ---
Post-Operative Progess Note Surgeon (s)/Medical Affairs Manager (s) Surgeon SELVIN GEORGES DO Medical Affairs Manager: none Pre-Operative Diagnosis hypotension, anemia Post-Operative Diagnosis same Procedure & Operative Findings Date of Procedure 12/15/19 Procedure Performed/Findings PROCEDURE: [Right] internal jugular central line placement using ultrasound guidance. COMPLICATIONS: None. INDICATIONS: The patient is a 64 year old female [with rectal bleed, anemia and hypotension]. Patient understands the risks and benefits of port placement and wished to proceed with the procedure. Consent was signed on the chart. PROCEDURE: The patient was in her bed in the ICU, was prepped and draped in the sterile fashion. A surgical pause was performed. Ultrasound was used to locate the internal jugular vein. Once located anesthetic was infiltrated above it. 18 Gauge finder needle with negative inspiration was advanced and dark nonpulsatile blood was withdrawn. The wire was inserted. US assured proper placement. The needle was removed. A [#11] blade scalpel was used to make a stab incision over the guidewire. The dilator sheath was then advanced over the wire using the Seldinger technique and then removed. The Groshong catheter was inserted over the wire using the seldinger technique and then the wire was removed. The central line was then accessed in all three ports and then flushed without difficulty. It was then sutured in place with 3-0 silk. The patient tolerated the procedure well without complication. Anesthesia Type local lidocaine Estimated Blood Loss Estimated blood loss (mL): scant Specimens/Packing Specimens Removed none SELVIN GEORGES DO Dec 15, 2019 23:31
--- NOTE | 2019-12-15 23:32 | Progress Note-Post Operative ---
Post-Operative Progess Note Surgeon (s)/Peace Officer (s) Surgeon SELVIN GEORGES DO Peace Officer: none Pre-Operative Diagnosis hypotension, anemia Post-Operative Diagnosis same, visualized bleeding from ulcer Procedure & Operative Findings Date of Procedure 12/15/19 Procedure Performed/Findings EGD Anesthesia Type GET Estimated Blood Loss Estimated blood loss (mL): from procedure none, copious amounts from the bleeding ulcer Specimens/Packing Specimens Removed none SELVIN GEORGES DO Dec 15, 2019 23:32
--- NOTE | 2019-12-15 23:38 | Progress Note - Surgery ---
Subjective Time Seen by a Provider: 22:28 Subjective/Events-last exam I spent over an hour of critical care time; managing the pressors, transfusing blood and giving IV fluids. Pt hypotensive and having seizure like activity; started EtOH withdrawal protocol. Review of Systems General: Fatigue, Malaise Pulmonary: Dyspnea; No Pleuritic Chest Pain Cardiovascular: No: Chest Pain, Palpitations Gastrointestinal: Vomiting, Abdominal Pain, Hematochezia Focused Exam Lactate Level 12/15/19 06:20: Lactic Acid Level 1.23 Objective Exam Vital Signs Date Time Temp Pulse Resp B/P (MAP) Pulse Ox O2 Delivery O2 Flow Rate FiO2 12/15/19 22:26 87 12/15/19 21:46 36.1 80 20 107/55 100 Nasal Cannula 2.00 12/15/19 21:28 36.4 88 16 92/73 100 Nasal Cannula 2.00 12/15/19 21:19 36.2 88 16 97/52 100 Nasal Cannula 2.00 12/15/19 21:05 36.6 101 64/39 12/15/19 19:51 37.4 12/15/19 18:00 75 14 97/49 (65) 96 Room Air 12/15/19 17:00 96 15 97/52 (67) 100 Room Air 12/15/19 16:00 96 Room Air 12/15/19 16:00 103 30 92/58 (69) Room Air 12/15/19 16:00 36.4 12/15/19 15:00 69 22 159/82 (107) Room Air 12/15/19 13:00 72 15 153/73 (99) 97 Room Air 12/15/19 12:43 70 12/15/19 12:39 96 Room Air 12/15/19 12:00 82 32 151/79 (103) 97 Room Air 12/15/19 11:00 79 7 160/75 (103) 98 Room Air 12/15/19 10:00 85 17 98 Room Air 12/15/19 09:00 88 17 128/59 (82) 97 Room Air 12/15/19 08:10 94 Room Air 12/15/19 08:00 37.3 12/15/19 08:00 93 15 129/63 (85) 97 Room Air 12/15/19 07:00 79 16 109/49 (69) 95 Room Air 12/15/19 06:35 88 12/15/19 06:00 93 11 108/54 (72) 94 Room Air 12/15/19 05:40 98 Room Air 12/15/19 05:20 37.5 96 136/40 (72) 97 Room Air 12/15/19 05:00 96 119/52 (74) 97 Room Air 12/15/19 04:45 38 24 121/54 (76) 97 Room Air 12/15/19 04:45 Room Air 12/15/19 04:45 37.8 83 18 121/54 (76) 99 Room Air 12/15/19 04:40 24 121/54 (76) 97 Room Air 12/15/19 04:40 Room Air 12/15/19 04:30 20 124/60 (81) 95 Room Air 12/15/19 04:25 Room Air 12/15/19 04:20 18 126/69 (88) 95 Room Air 12/15/19 04:10 16 131/65 (87) 93 Room Air 12/15/19 04:10 Room Air 12/15/19 04:00 20 121/86 (98) 95 Room Air 12/15/19 03:55 Room Air 12/15/19 03:50 20 111/49 (69) 95 Room Air 12/15/19 03:47 97 12/15/19 03:43 38.1 16 126/69 (88) 99 Room Air 12/15/19 03:43 Room Air 12/15/19 03:08 37.1 85 20 99/62 (74) 100 Room Air 12/15/19 02:40 85 20 99/62 100 12/15/19 02:34 37.1 82 20 99/62 100 Room Air 12/15/19 01:05 36.2 81 20 94/61 100 Room Air 12/15/19 00:56 78 24 97/54 100 Room Air 12/15/19 00:37 35.8 82 20 93/74 Room Air 12/15/19 00:27 35.4 82 20 89/50 98 Room Air Capillary Refill : Less Than 3 SecondsLess Than 3 Seconds General Appearance: Severe Distress HEENT: PERRL/EOMI Respiratory: Lungs Clear, Normal Breath Sounds, No Accessory Muscle Use, No Respiratory Distress Cardiovascular: No Edema, Tachycardia Peripheral Pulses: 3+ Carotid (R); 2+ Dorsalis Pedis (R), 2+ Left Dors-Pedis (L), 2+ Radial Pulses (R), 2+ Radial Pulses (L) Gastrointestinal: non tender, soft Neurologic/Psychiatric: Disoriented Skin: Cool, Cyanosis, Pallor Results Lab Laboratory Tests 12/15/19 02:49: Hemoglobin 8.4L, Hematocrit 24L 12/15/19 06:20: Hemoglobin 8.9L, Hematocrit 27L, White Blood Count 3.5L, Red Blood Count 2.76L, Mean Corpuscular Volume 96, Mean Corpuscular Hemoglobin 32, Mean Corpuscular Hemoglobin Concent 34, Red Cell Distribution Width 12.9, Platelet Count 186, Mean Platelet Volume 9.1, Immature Granulocyte % (Auto) 1, Neutrophils (%) (Auto) 71, Lymphocytes (%) (Auto) 14, Monocytes (%) (Auto) 13H, Eosinophils (%) (Auto) 1, Basophils (%) (Auto) 1, Neutrophils # (Auto) 2.5, Lymphocytes # (Auto) 0.5L, Monocytes # (Auto) 0.5, Eosinophils # (Auto) 0.0, Basophils # (Auto) 0.0, Immature Granulocyte # (Auto) 0.0, Sodium Level 135, Potassium Level 4.4, Chloride Level 105, Carbon Dioxide Level 19L, Anion Gap 11, Blood Urea Nitrogen 17, Creatinine 0.59L, Estimat Glomerular Filtration Rate > 60, BUN/Creatinine Ratio 29, Glucose Level 110H, Lactic Acid Level 1.23, Calcium Level 7.8L 12/15/19 20:24: Glucometer 225H 12/15/19 20:27: Hemoglobin 5.3#*L, Hematocrit 16*L Assessment/Plan Assessment/Plan Assessment/Plan Hypotension Hematemesis Melena Anemia ?Duodenal bulb ulcer with perforation Hyponatremia Pelvic Fx - old Attempted EGD while pt was mildly sedated from Ativan, but there was a lot of blood in the stomach and she started vomiting it up. 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 Clinical Quality Measures DVT/VTE Risk/Contraindication: Risk Factor Score Per Nursin RFS Level Per Nursing on Admit: 2=Moderate SELVIN GEORGES DO Dec 15, 2019 23:38
[2019-12-15] MEDS ORDERED: EPINEPHrine INJECTION 1 MG/ML AMP ONE (23:47)
[2019-12-15] MEDS ORDERED: SEVOFLURANE (ULTANE) 15 ML INHAL SOLN ONE (23:55)
[2019-12-16] VITALS (43 sets, daily range): BP systolic 101–165; BP diastolic 42–75
[2019-12-16] MEDS ORDERED: LORazepam INJ 2 MG/ML (ATIVAN) VIAL IVP ONE
[2019-12-16] MEDS ORDERED: MIDAZOLAM 2 MG/2 ML (VERSED) VIAL ONE ×2 (00:14)
[2019-12-16] MEDS ORDERED: PHENYLEPHRINE INJ 10 MG/ML (FOR DRIP KITS ONLY) ONE (00:14)
[2019-12-16] MEDS ORDERED: ROCURONIUM 10 MG/ML 5 ML SYRINGE IV ONE ×2 (00:22→08:53)
[2019-12-16 00:25] LABS: ALBUMIN 2.4 GM/DL (3.2-4.5); BASOPHILS % (AUTO) 1 % (0-10); CHLORIDE 106 MMOL/L (98-107); EOSINOPHILS # (AUTO) 0.2 10^3/uL (0.0-0.3); EOSINOPHILS % (AUTO) 4 % (0-10); LYMPHOCYTES # (AUTO) 0.8 10^3/uL (1.0-4.0); LYMPHOCYTES % (AUTO) 20 % (12-44); MEAN CORPUSCULAR HGB CONC 34 g/dL (32-36); MEAN CORPUSCULAR VOLUME 96 fL (80-99); MEAN PLATELET VOLUME 9.8 fL (9.0-12.2); MONOCYTES # (AUTO) 0.3 10^3/uL (0.0-1.0); MONOCYTES % (AUTO) 8 % (0-12); NEUTROPHILS # (AUTO) 2.5 10^3/uL (1.8-7.8); NEUTROPHILS % (AUTO) 66 % (42-75); PLATELET COUNT 158 10^3/uL (130-400); POTASSIUM 3.2 MMOL/L (3.6-5.0); SODIUM 135 MMOL/L (135-145); WHITE BLOOD COUNT 3.8 10^3/uL (4.3-11.0)
--- NOTE | 2019-12-16 00:25 | NUR ---
UPDATED FAMILY AT THIS TIME.
[2019-12-16 00:26] LABS: CALCIUM 7.1 MG/DL (8.5-10.1); HEMATOCRIT 15 % (35-52); MEAN CORPUSCULAR HEMOGLOBIN 32 pg (25-34)
[2019-12-16 00:27] LABS: GLUCOSE 213 MG/DL (70-105); TOTAL PROTEIN 3.5 GM/DL (6.4-8.2)
[2019-12-16] MEDS ORDERED: SEVOFLURANE (ULTANE) 15 ML INHAL SOLN ONE ×2 (00:27)
[2019-12-16 00:28] LABS: CARBON DIOXIDE 20 MMOL/L (21-32)
[2019-12-16 00:29] LABS: BILIRUBIN,TOTAL 0.5 MG/DL (0.1-1.0)
[2019-12-16 00:30] LABS: PHOSPHORUS 3.1 MG/DL (2.3-4.7)
[2019-12-16 00:31] LABS: ALKALINE PHOSPHATASE 50 U/L (40-136); CREATININE SERUM 0.62 MG/DL (0.60-1.30); GFR ESTIMATED > 60
[2019-12-16 00:32] LABS: BUN/CREATININE RATIO 16
[2019-12-16 00:33] LABS: FIBRIN DEGRADATION PRODUCTS 0.3 UG/ML (0.00-0.49); INR 1.5 (0.8-1.4); PROTHROMBIN TIME PATIENT 18.1 SEC (12.2-14.7)
[2019-12-16 00:34] LABS: ALANINE AMINOTRANSFERASE 9 U/L (0-55); MAGNESIUM 1.4 MG/DL (1.6-2.4)
--- NOTE | 2019-12-16 01:09 | Progress Note-Post Operative ---
Post-Operative Progess Note Surgeon (s)/Pump Technician (s) Surgeon SELVIN GEORGES DO Pump Technician: Brian Pre-Operative Diagnosis hypotension, anemia Post-Operative Diagnosis bleeding Gastroduodenal artery Procedure & Operative Findings Date of Procedure 12/16/19 Procedure Performed/Findings Ex Lap with Pyloromyotomy and oversew of bleeding gastroduodenal artery Anesthesia Type GET Estimated Blood Loss Estimated blood loss (mL): 1400 Specimens/Packing Specimens Removed none SELVIN GEORGES DO Dec 16, 2019 01:09
[2019-12-16] MEDS ORDERED: PROPOFOL DRIP (ICU) 100 ML IV ONE (01:38)
--- NOTE | 2019-12-16 02:02 | NUR ---
UPDATED PT FAMILY AT THIS TIME.
[2019-12-16] MEDS: PROPOFOL DRIP (ICU) 100 ML IV SCH ×4 (02:30→10:57)
[2019-12-16] MEDS ORDERED: ALBUMIN 25% 25 GM/100 ML 100 ML IV ONE (02:30)
[2019-12-16] MEDS: PIPERACILLIN/TAZO 4.5 GM/NS 100 ML IV SCH ×6 (03:04→17:17)
[2019-12-16 03:15] LABS: ABG BASE EXCESS -1.7 MMOL/L (-2.5-2.5); ABG OXYGEN SATURATION 100 % (94-100); ABG PCO2 29 MMHG (35-45); ABG PH 7.48 (7.37-7.43); ABG PO2 435 MMHG (79-93); ABG TCO2 22.5 MMOL/L (21.0-31.0); BASOPHILS % (AUTO) 0 % (0-10); EOSINOPHILS % (AUTO) 0 % (0-10); LYMPHOCYTES # (AUTO) 0.4 10^3/uL (1.0-4.0); LYMPHOCYTES % (AUTO) 5 % (12-44); MEAN CORPUSCULAR HEMOGLOBIN 29 pg (25-34); MEAN CORPUSCULAR HGB CONC 35 g/dL (32-36); MEAN CORPUSCULAR VOLUME 84 fL (80-99); MEAN PLATELET VOLUME 10.1 fL (9.0-12.2); MONOCYTES # (AUTO) 0.7 10^3/uL (0.0-1.0); MONOCYTES % (AUTO) 9 % (0-12); NEUTROPHILS # (AUTO) 6.8 10^3/uL (1.8-7.8); NEUTROPHILS % (AUTO) 85 % (42-75); PLATELET COUNT 76 10^3/uL (130-400)
[2019-12-16 03:19] LABS: ALLENS TEST YES-POS; INSPIRED O2 100%; PATIENT TEMP 35.8; VENTILATOR YES
[2019-12-16 03:24] LABS: HEMATOCRIT 16 % (35-52); HEMOGLOBIN 5.4 g/dL (11.5-16.0)
[2019-12-16 03:33] LABS: CHLORIDE 108 MMOL/L (98-107); POTASSIUM 3.9 MMOL/L (3.6-5.0); SODIUM 136 MMOL/L (135-145)
[2019-12-16 03:35] LABS: CALCIUM 6.2 MG/DL (8.5-10.1); TRIGLYCERIDES 85 MG/DL (<150)
[2019-12-16 03:36] LABS: GLUCOSE 277 MG/DL (70-105); TOTAL PROTEIN 3.2 GM/DL (6.4-8.2)
[2019-12-16 03:37] LABS: CARBON DIOXIDE 19 MMOL/L (21-32); INR 1.6 (0.8-1.4); PROTHROMBIN TIME PATIENT 19.4 SEC (12.2-14.7)
[2019-12-16 03:38] LABS: BILIRUBIN,TOTAL 0.9 MG/DL (0.1-1.0)
[2019-12-16 03:39] LABS: ALKALINE PHOSPHATASE 44 U/L (40-136)
[2019-12-16 03:40] LABS: CREATININE SERUM 0.63 MG/DL (0.60-1.30); GFR ESTIMATED > 60
[2019-12-16 03:41] LABS: BUN/CREATININE RATIO 16
[2019-12-16 03:42] LABS: ALANINE AMINOTRANSFERASE 15 U/L (0-55)
[2019-12-16] MEDS ORDERED: NS IV 500 ML 500 ML ONE (03:43)
[2019-12-16] MEDS: morphine INJ 4 MG/ML 1 ML (VIAL/SYRINGE) IVP PRN ×7 (04:09→23:43)
[2019-12-16 04:36] LABS: BAND NEUTROPHILS 6 %; EOSINOPHILS % (MANUAL) 1 %; LYMPHOCYTES % (MANUAL) 3 %; MONOCYTES % (MANUAL) 3 %; NEUTROPHILS % (MANUAL) 87 %; NUCLEATED RED BLOOD CELLS 1; POLYCHROMASIA SLIGHT
[2019-12-16 04:46] LABS: PHOSPHORUS 4.1 MG/DL (2.3-4.7)
[2019-12-16 04:48] LABS: MAGNESIUM 1.3 MG/DL (1.6-2.4)
[2019-12-16] MEDS: MAGNESIUM 1 GM/100 ML IVPB 100 ML IV SCH ×4 (05:09→07:49)
[2019-12-16] MEDS: NOREPINEPHRINE 4 MG/250 ML 250 ML IV SCH ×3 (05:53→22:22)
[2019-12-16] MEDS: KCL 20 MEQ TAB (K-DUR) PO SCH (05:54)
[2019-12-16] MEDS: POTASSIUM CL 10MEQ/50ML IVPB 50 ML IV SCH (05:54)
[2019-12-16] MEDS ORDERED: NS IV 500 ML 500 ML IV SCH (06:15)
[2019-12-16] MEDS: LACTATED RINGERS 1,000 ML IV SCH ×4 (06:17→22:23)
--- NOTE | 2019-12-16 06:27 | OPERATIVE REPORT ---
DATE OF SERVICE: 12/16/2019 PREOPERATIVE DIAGNOSES: Hypotension, anemia. POSTOPERATIVE DIAGNOSIS: Bleeding gastroduodenal artery. SURGEON: Selvin Ahuja DO FITTER AND TURNER: Sushil Torres DO ANESTHESIA: General endotracheal tube. PROCEDURE: Exploratory laparotomy with pyloromyotomy and oversew bleeding gastroduodenal artery. BLOOD LOSS: 1400 mL in the stomach that we suctioned out. SPECIMENS: None. INDICATION FOR PROCEDURE: The patient is a 64-year-old female who had episode of hematemesis last night, but the EGD showed no bleeding. However, today started having bright red blood per rectum, started dropping her blood pressure. She then became hypotensive. She was cool, cyanotic, pale and she was intubated in the ICU. EGD showed blood in the stomach and she was taken emergently to the OR. FINDINGS: The patient had a bleeding gastroduodenal artery, bleeding very briskly. We had started the massive transfusion protocol. PROCEDURE NOTE: After informed consent was obtained, the patient was brought to the operating room. She was placed on table in supine position. She was sterilely prepped and draped in normal fashion. We made an incision with #10 blade, carried down through the skin into subcutaneous tissue from just below the xiphoid to just above the umbilicus and deepened down to subcutaneous tissue with Bovie electrocautery down to the fascia. Fascia was incised with Bovie electrocautery, bluntly entered the abdomen, swept a finger around, falciform ligament was in the way. Cut out portion of the falciform ligament to help. Placed Omni retractors and then could see a very distended stomach, elected to use Omni Retractor to hold the abdomen open and then made an incision transversely through the pylorus and the duodenum and the small stomach. Immediately, saw bleeding from the duodenal bulb from the ulcer that we had seen previously. Suctioned this out and saw the gastroduodenal artery briskly bleeding. We suture ligated this with 2-0 Vicryl, two [id number] sutures. This stopped the bleeding, then placed Surgicel and then suctioned out the stomach. Placed an NG tube as well. When suction out the stomach, got out 1400 mL of fluid. We then looked around the abdomen, did not see any other obvious pathology, suctioned out all the fluid. Copiously irrigated with warm normal saline, then elected to close the pyloromyotomy in a superior to inferior way. Placed stay sutures on either side, one on the stomach, one on the small intestine and brought this together and then closed superiorly and inferiorly with a 2-0 Vicryl interrupted simple sutures to close this pyloromyotomy closed nicely. No bleeding. Irrigated again with normal saline and at this point, then elected to close the incision with #1 double stranded PDS suture running from superior portion to inferior portion tying to itself and then irrigated the midline incision, then closed the skin with jimmy. Area was cleaned and dried, dressing placed. The patient tolerated the procedure. She actually finally had a good blood pressure without vasopressors and she was transferred to ICU in stable condition on the vent. Dr. Torres helped to assist in this case, helping to make incisions, close incisions, identify anatomy, hold anatomy out of the way. Job ID: [id number] DocumentID: [id number] Dictated Date: 12/16/2019 01:08:42 Animated Cartoons Painter Date: 12/16/2019 06:26:16 Dictated By: SELVIN AHUJA DO [email or web address]
--- NOTE | 2019-12-16 07:35 | Diagnostic Imaging Report ---
INDICATION: Intubated patient. Respiratory failure. Follow-up. COMPARISON: None FINDINGS: Single frontal radiograph of the chest was obtained and demonstrates low inspiratory volumes with right basilar and perihilar atelectasis. There is no large effusion or pneumothorax. Cardiac silhouette and pulmonary vasculature are within normal limits. Indwelling gastric tube is seen with tip and side-port presumably within the stomach. Right internal jugular central venous catheter is also seen with tip at the cavoatrial junction. Indwelling endotracheal tube is also noted with tip at the upper level of the clavicular heads. IMPRESSION: 1. Lines and tubes as above. 2. Low lung volumes with probable right perihilar and basilar atelectasis. Dictated by: Dictated on workstation # [id number]
--- NOTE | 2019-12-16 07:36 | NUR ---
UPDATED PT FAMILY AT THIS TIME.
--- NOTE | 2019-12-16 07:40 | NUR ---
TIMELINE NOTE- [id number] THIS RN TO ASSESS PATIENT-PT C/O OF NAUSEA, DIZZINESS AND C/O OF FEELING THAT SHE IS GOING TO PASS OUT. PT DIAPHORETIC DR GEORGES NOTIFIED OF PT CONDITION AND PRN ZOFRAN ORDERED. PT INCONTINENT OF COPIOUS AMOUNTS OF BLOODY STOOL. PT BECAME UNRESPONSIVE DR GEORGES NOTIFIED. 2020-PT CONTINUES TO HAVE NAUSEA, BP TRENDING DOWN, PT GOING IN AND OUT OF CONSCIOUSNESS, EVERY TIME PT HAS BM PT BECOMES UNRESPONSIVE. HOUSE SUP AT BEDSIDE, HR INCREASES TO 140S-150'S, BP DECREASES TO 60'S/40S-DR GEORGES NOTIFIED. ORDERS TO PUT NG DOWN, ORDER FOR H&H, AND ONE UNIT OF PRBC'S. LAB AT BEDSIDE, THIS RN AND SARAH HARPER ATTEMPTED NG, PT DID NOT TOLERATE. DESTINI NOTIFIED-PT IV SITES BILAT AC'S INFILTRATED, THIS RN, IPLO SUP AND 2 OTHER RNS UNABLE TO FIND IV. NOTIFIED DR GEORGES OF NEED FOR CENTRAL LINE AND PRESSORS. 2041-DR GEORGES TO ROOM TO PLACE CENTRAL LINE- 2119-PT HAD LARGE BLOODY BM X2, PT CONSTANTLY COMPLAINING OF NAUSEA AND IS DIAPHORETIC, THIS RN AT BEDSIDE WHEN PT BECAME UNRESPONSIVE AGAIN, HR INCREASED TO 150'S, BP DECREASED TO 50'S/30'S. PT UNRESPONSIVE, DR GEORGES NOTIFIED. ORDERS TO CALL IN ENDO-HOUSE SUP NOTIFIED. DR GEORGES NOTIFIED OF CRITICAL LABS 2209-DR GEORGES AND SHERI AT BEDSIDE-PT CONSTANTLY HAVING COPIOUS AMOUNTS OF BLOODY STOOLS. PT IN AND OUT OF CONSCIOUSNESS. ENDO CREW AT BEDSIDE-EGD DONE AT BEDSIDE-AIR HAMMER STRIPPER AT BEDSIDE-PT BEGINS THROWING UP COPIOUS AMOUNTS OF BLOOD. SUCTION. UNABLE TO GET BP READING-LEVO GTT MAX AND VASOPRESSIN STARTED 2254-MTP PER DR GEORGES 2257-ORDERS TO INTUBATE. RT AT BEDSIDE-10 VERSED AND 100 SUCCS PER AIR HAMMER STRIPPER, 0-PT INTUBATED, SIZE 7 ET TUBE, 22 AT THE TEETH, BILAT BREATHS SOUNDS-RIGHT RADIAL ARTLINE PLACED PER AIR HAMMER STRIPPER, OR CREW CALLED IN, PT TO SURGERY
[2019-12-16] MEDS ORDERED: SUCCINYLCHOLINE INJ 100 MG/5 ML SYR/VIAL INJ ONE (08:53)
[2019-12-16] MEDS ORDERED: MIDAZOLAM 5 MG/5 ML (VERSED) VIAL IJ ONE (08:53)
[2019-12-16 09:11] LABS: MEAN PLATELET VOLUME 9.5 fL (9.0-12.2); WHITE BLOOD COUNT 5.6 10^3/uL (4.3-11.0)
[2019-12-16 09:17] LABS: HEMOGLOBIN 6.9 g/dL (11.5-16.0)
[2019-12-16 09:24] LABS: INR 1.3 (0.8-1.4); PROTHROMBIN TIME PATIENT 16.1 SEC (12.2-14.7)
--- NOTE | 2019-12-16 09:58 | Anesthesia-General Post-Op ---
General Patient Condition Mental Status/LOC: Same as Preop Cardiovascular: Satisfactory Nausea/Vomiting: Absent Respiratory: Unsatisfactory Pain: Controlled Complications: Absent Post Op Complications Complications None Follow Up Care/Instructions Patient Instructions None needed. Anesthesia/Patient Condition Patient Condition Patient is doing well, no complaints, stable vital signs, no apparent adverse anesthesia problems. No complications reported per nursing. D/C home per [facility] Criteria: JOSÉ Rowley CRNA Dec 16, 2019 09:58
[2019-12-16] MEDS: PANTOPRAZOLE INJECTION 200 MG in NS (IVPB) 100 ML IV SCH (11:52)
[2019-12-16] MEDS: FLUCONAZOLE 200 MG/100 ML 50 ML, EMPTY IV BAG (PVC) 1 EA IV SCH ×2 (11:52)
--- NOTE | 2019-12-16 12:19 | Progress Note - Surgery ---
Subjective Time Seen by a Provider: 11:22 Subjective/Events-last exam Pt seen and examined, intubated and sedated. She is off pressors. Review of Systems unable to obtain pt intubated Focused Exam Lactate Level 12/15/19 06:20: Lactic Acid Level 1.23 12/16/19 02:40: Lactic Acid Level 2.82*H 12/16/19 05:00: Lactic Acid Level 1.51 Objective Exam Vital Signs Date Time Temp Pulse Resp B/P (MAP) Pulse Ox O2 Delivery O2 Flow Rate FiO2 12/16/19 11:41 71 15 136/46 100 12/16/19 11:00 71 23 148/51 (83) 100 Mechanical Ventilator 60.00 12/16/19 10:57 78 146/53 12/16/19 10:56 78 143/53 12/16/19 10:00 71 15 130/44 (72) 100 Mechanical Ventilator 60.00 12/16/19 09:45 69 15 129/43 100 Mechanical Ventilator 50 12/16/19 09:00 70 15 125/42 (69) 100 Mechanical Ventilator 60.00 12/16/19 08:17 36.4 12/16/19 08:00 70 21 132/60 (84) 100 Mechanical Ventilator 60.00 12/16/19 08:00 100 Mechanical Ventilator 50 12/16/19 07:18 68 16 100 50 12/16/19 07:00 68 16 154/56 (88) 100 Mechanical Ventilator 60.00 12/16/19 06:48 70 147/54 12/16/19 06:42 36.5 70 20 147/54 100 Mechanical Ventilator 50 12/16/19 06:40 69 12/16/19 06:30 36.4 71 20 144/52 100 Mechanical Ventilator 50 12/16/19 06:00 71 16 145/53 (83) 100 Mechanical Ventilator 60.00 12/16/19 05:23 36.1 75 20 129/47 100 Mechanical Ventilator 50 12/16/19 05:12 36.0 77 20 133/50 100 Mechanical Ventilator 60 12/16/19 05:00 78 17 165/60 (95) 100 Mechanical Ventilator 60.00 12/16/19 04:45 123 16 98 100 12/16/19 04:38 Mechanical Ventilator 60.00 12/16/19 04:37 36.0 79 20 146/57 100 Mechanical Ventilator 80 10/13/20 04:32 36.0 78 20 159/63 100 Mechanical Ventilator 80 12/16/19 04:25 36.0 82 20 154/60 100 Mechanical Ventilator 80 12/16/19 04:19 100 Mechanical Ventilator 80 12/16/19 04:18 Mechanical Ventilator 80.00 12/16/19 04:14 36.0 72 18 161/59 100 Mechanical Ventilator 80 12/16/19 04:07 36.0 90 20 118/46 100 Mechanical Ventilator 100 12/16/19 04:00 93 22 126/49 (74) 100 Mechanical Ventilator 100.00 12/16/19 03:58 36.0 93 20 122/47 100 Mechanical Ventilator 100 12/16/19 03:00 92 19 127/47 (73) 100 Mechanical Ventilator 100.00 12/16/19 02:30 82 116/44 12/16/19 02:00 36.2 16 100 Mechanical Ventilator 100 12/16/19 02:00 Mechanical Ventilator 100 12/16/19 02:00 82 18 116/44 (68) 100 Mechanical Ventilator 100.00 12/16/19 01:55 Mechanical Ventilator 100 12/16/19 01:50 16 100 Mechanical Ventilator 100 12/16/19 01:40 16 100 Mechanical Ventilator 100 12/16/19 01:40 Mechanical Ventilator 100 12/16/19 01:30 16 100 Mechanical Ventilator 100 12/16/19 01:30 84 16 155/54 (87) 100 Mechanical Ventilator 100.00 12/16/19 01:25 Mechanical Ventilator 100 12/16/19 01:20 16 100 Mechanical Ventilator 100 12/16/19 01:15 85 12/16/19 01:15 83 21 119/71 (87) 100 Mechanical Ventilator 100.00 12/16/19 01:13 101 103/59 (74) 100 Mechanical Ventilator 100.00 12/16/19 01:10 Mechanical Ventilator 12/16/19 01:10 36.2 16 100 Mechanical Ventilator 100 12/15/19 23:30 142 115/42 (66) Mechanical Ventilator 100.00 12/15/19 23:22 146 15 144/73 (96) 99 Mechanical Ventilator 100.00 12/15/19 23:00 146 29 100 Mechanical Ventilator 100.00 12/15/19 22:00 125 91/73 (79) 89 Non Rebreather 4.00 12/15/19 21:46 36.1 80 20 107/55 100 Nasal Cannula 2.00 12/15/19 21:28 36.4 88 16 92/73 100 Nasal Cannula 2.00 12/15/19 21:20 92 97/56 (70) 92 Nasal Cannula 4.00 12/15/19 21:19 36.2 88 16 97/52 100 Nasal Cannula 2.00 12/15/19 21:05 36.6 101 64/39 12/15/19 21:00 60/40 12/15/19 21:00 98 20 100 Nasal Cannula 4.00 12/15/19 20:00 89 8 103/62 (76) 98 Nasal Cannula 2.00 12/15/19 20:00 100 Nasal Cannula 2.00 12/15/19 19:51 37.4 12/15/19 19:00 87 12/15/19 19:00 87 12 118/65 (82) 94 Nasal Cannula 2.00 12/15/19 18:00 75 14 97/49 (65) 96 Room Air 12/15/19 17:00 96 15 97/52 (67) 100 Room Air 12/15/19 16:00 96 Room Air 12/15/19 16:00 103 30 92/58 (69) Room Air 12/15/19 16:00 36.4 12/15/19 15:00 69 22 159/82 (107) Room Air 12/15/19 13:00 72 15 153/73 (99) 97 Room Air 12/15/19 12:43 70 12/15/19 12:39 96 Room Air I & O 12/16/19 07:00 Intake Total 2270 ml Output Total 2062 ml Balance 208 ml Capillary Refill : Less Than 3 SecondsLess Than 3 Seconds General Appearance: No Apparent Distress HEENT: PERRL/EOMI, Other (intubated with NGT) Respiratory: Lungs Clear, Normal Breath Sounds, No Accessory Muscle Use, No Respiratory Distress Cardiovascular: Regular Rate, Rhythm, No Murmur Peripheral Pulses: 3+ Carotid (R); 2+ Dorsalis Pedis (R), 2+ Left Dors-Pedis (L), 2+ Radial Pulses (R), 2+ Radial Pulses (L) Gastrointestinal: soft, other (incision c/d/i, CARIDAD drain with serosanguinous drainage) Neurologic/Psychiatric: Disoriented Skin: Cool, Cyanosis, Pallor Results Lab Laboratory Tests 12/15/19 20:24: Glucometer 225H 12/15/19 20:27: Hemoglobin 5.3#*L, Hematocrit 16*L 12/15/19 20:50: Hemoglobin 5.0*L, Hematocrit 15*L, White Blood Count 3.8L, Red Blood Count 1.54L , Mean Corpuscular Volume 96, Mean Corpuscular Hemoglobin 32, Mean Corpuscular Hemoglobin Concent 34, Red Cell Distribution Width 13.5, Platelet Count 158, Mean Platelet Volume 9.8, Immature Granulocyte % (Auto) 1, Neutrophils (%) (Auto) 66, Lymphocytes (%) (Auto) 20, Monocytes (%) (Auto) 8, Eosinophils (%) (Auto) 4, Basophils (%) (Auto) 1, Neutrophils # (Auto) 2.5, Lymphocytes # (Auto) 0.8L, Monocytes # (Auto) 0.3, Eosinophils # (Auto) 0.2, Basophils # (Auto) 0.0, Immature Granulocyte # (Auto) 0.0, Prothrombin Time 18.1H, INR Comment 1.5H, Activated Partial Thromboplast Time 30, Fibrinogen 164L, D-Dimer 0.30, Sodium Level 135, Potassium Level 3.2L, Chloride Level 106, Carbon Dioxide Level 20L, Anion Gap 9, Blood Urea Nitrogen 10, Creatinine 0.62, Estimat Glomerular Filtration Rate > 60, BUN/Creatinine Ratio 16, Glucose Level 213H, Calcium Level 7.1L, Corrected Calcium 8.4L, Phosphorus Level 3.1, Magnesium Level 1.4L, Total Bilirubin 0.5, Aspartate Amino Transf (AST/SGOT) 12, Alanine Aminotransferase (ALT/SGPT) 9, Alkaline Phosphatase 50, Total Protein 3.5L, Albumin 2.4L 12/16/19 02:40: Hemoglobin 5.4*L, Hematocrit 16*L, White Blood Count 8.0, Red Blood Count 1.84L, Mean Corpuscular Volume 84, Mean Corpuscular Hemoglobin 29, Mean Corpuscular Hemoglobin Concent 35, Red Cell Distribution Width 15.0H, Platelet Count 76L, Mean Platelet Volume 10.1, Immature Granulocyte % (Auto) 1, Neutrophils (%) (Auto) 85H, Lymphocytes (%) (Auto) 5L, Monocytes (%) (Auto) 9, Eosinophils (%) (Auto) 0, Basophils (%) (Auto) 0, Neutrophils # (Auto) 6.8, Lymphocytes # (Auto) 0.4L, Monocytes # (Auto) 0.7, Eosinophils # (Auto) 0.0, Basophils # (Auto) 0.0, Immature Granulocyte # (Auto) 0.1, Prothrombin Time 19.4H, INR Comment 1.6H, Activated Partial Thromboplast Time 34, Sodium Level 136, Potassium Level 3.9, Chloride Level 108H, Carbon Dioxide Level 19L, Anion Gap 9, Blood Urea Nitrogen 10, Creatinine 0.63, Estimat Glomerular Filtration Rate > 60, BUN/Creatinine Ratio 16, Glucose Level 277H, Calcium Level 6.2L, Corrected Calcium 7.8L, Phosphorus Level 4.1, Magnesium Level 1.3L, Total Bilirubin 0.9, Aspartate Amino Transf (AST/SGOT) 25, Alanine Aminotransferase (ALT/SGPT) 15, Alkaline Phosphatase 44, Total Protein 3.2L, Albumin 2.0L, Neutrophils % (Manual) 87, Lymphocytes % (Manual) 3, Monocytes % (Manual) 3, Eosinophils % (Manual) 1, Band Neutrophils 6, Nucleated Red Blood Cells 1, Polychromasia SLIGHT, Blood Gas Puncture Site RIGHT RADIAL, Blood Gas Patient Temperature 35.8, Arterial Blood pH 7.48H, Arterial Blood Partial Pressure CO2 29L, Arterial Blood Partial Pressure O2 435H, Arterial Blood HCO3 22L, Arterial Blood Total CO2 22.5, Arteri al Blood Oxygen Saturation 100, Arterial Blood Base Excess -1.7, Diaz Test YES- POS, Blood Gas Ventilator Setting YES, Blood Gas Inspired Oxygen 100%, Lactic Acid Level 2.82*H, Troponin I 0.046H, Triglycerides Level 85, Coronavirus 2019 (ADELINE) Negative 12/16/19 02:41: Glucometer 298H 12/16/19 04:55: 12/16/19 05:00: Lactic Acid Level 1.51 12/16/19 09:00: White Blood Count 5.6, Red Blood Count 2.23L, Hemoglobin 6.9#*L, Hematocrit 19*L , Mean Corpuscular Volume 86, Mean Corpuscular Hemoglobin 31, Mean Corpuscular Hemoglobin Concent 36, Red Cell Distribution Width 14.9H, Platelet Count 56L, Mean Platelet Volume 9.5, Prothrombin Time 16.1H, INR Comment 1.3 12/16/19 11:32: Glucometer 150H Assessment/Plan Assessment/Plan Assessment/Plan S/P Oversew of bleeding Gastro-Duodenal artery Hypotension -resolved Anemia Pelvic Fx - old Pt is still intubated after surgery, but off all pressors. Will start weaning sedation and see if she can be extubated today. Hg was 6.9, she is currently getting FFP, platelets and will give her one more unit of PRBC. Continue IV ABX, IV fluid, pain control. Clinical Quality Measures DVT/VTE Risk/Contraindication: Risk Factor Score Per Nursin RFS Level Per Nursing on Admit: 2=Moderate SELVIN GEORGES DO Dec 16, 2019 12:19
[2019-12-16] MEDS: ONDANSETRON 4 MG/2 ML (SDV) Z0FRAN IVP PRN (13:41)
--- NOTE | 2019-12-16 14:32 | Progress Note ---
Standard Progress Note Progress Notes/Assess & Plan Date Seen by a Provider: Dec 16, 2019 Time Seen by a Provider: 14:00 Progress/Assessment & Plan Patient extubated just recently. She is weak and complains of abdominal pain, S/P laparotomy from last night. Receiving opioids for pain. VS fairly stable. We will continue to be available for consultation as needed. Focused Exam Lactate Level 12/15/19 06:20: Lactic Acid Level 1.23 12/16/19 02:40: Lactic Acid Level 2.82*H 12/16/19 05:00: Lactic Acid Level 1.51 ERICA LO CRNA Dec 16, 2019 14:32
[2019-12-16] MEDS ORDERED: NS IV 1000 ML 1,000 ML ONE (14:48)
[2019-12-16 19:29] LABS: HEMOGLOBIN 7.5 g/dL (11.5-16.0)
[2019-12-17] VITALS (18 sets, daily range): BP systolic 115–181; BP diastolic 50–84
[2019-12-17] MEDS: PIPERACILLIN/TAZO 4.5 GM/NS 100 ML IV SCH ×6 (01:48→17:09)
[2019-12-17] MEDS: morphine INJ 4 MG/ML 1 ML (VIAL/SYRINGE) IVP PRN ×9 (01:49→23:52)
[2019-12-17 02:16] LABS: BASOPHILS % (AUTO) 0 % (0-10); EOSINOPHILS # (AUTO) 0.1 10^3/uL (0.0-0.3); EOSINOPHILS % (AUTO) 1 % (0-10); HEMATOCRIT 21 % (35-52); HEMOGLOBIN 7.5 g/dL (11.5-16.0); LYMPHOCYTES # (AUTO) 0.7 10^3/uL (1.0-4.0); LYMPHOCYTES % (AUTO) 10 % (12-44); MEAN CORPUSCULAR HEMOGLOBIN 31 pg (25-34); MEAN CORPUSCULAR HGB CONC 35 g/dL (32-36); MEAN CORPUSCULAR VOLUME 87 fL (80-99); MEAN PLATELET VOLUME 9.7 fL (9.0-12.2); MONOCYTES # (AUTO) 0.6 10^3/uL (0.0-1.0); MONOCYTES % (AUTO) 8 % (0-12); NEUTROPHILS # (AUTO) 5.8 10^3/uL (1.8-7.8); NEUTROPHILS % (AUTO) 81 % (42-75); PLATELET COUNT 97 10^3/uL (130-400); WHITE BLOOD COUNT 7.1 10^3/uL (4.3-11.0)
[2019-12-17 02:42] LABS: BUN/CREATININE RATIO 9; CALCIUM 7.2 MG/DL (8.5-10.1); CARBON DIOXIDE 27 MMOL/L (21-32); CHLORIDE 105 MMOL/L (98-107); CREATININE SERUM 0.54 MG/DL (0.60-1.30); GFR ESTIMATED > 60; GLUCOSE 115 MG/DL (70-105); PHOSPHORUS 2.5 MG/DL (2.3-4.7); POTASSIUM 3.4 MMOL/L (3.6-5.0); SODIUM 138 MMOL/L (135-145)
[2019-12-17] MEDS: POTASSIUM CL 10MEQ/50ML IVPB 50 ML IV SCH ×3 (03:42→05:07)
[2019-12-17] MEDS: MAGNESIUM 1 GM/100 ML IVPB 100 ML IV SCH (03:42)
[2019-12-17] MEDS: KCL 20 MEQ TAB (K-DUR) PO SCH (03:43)
[2019-12-17] MEDS: NOREPINEPHRINE 4 MG/250 ML 250 ML IV SCH ×3 (03:43→19:34)
[2019-12-17] MEDS: LACTATED RINGERS 1,000 ML IV SCH ×3 (05:07→18:14)
--- NOTE | 2019-12-17 07:50 | Progress Note - Surgery ---
GRUPO MOREL MED STUDENT 12/17/19 0750: Subjective Date Seen by a Provider: Dec 17, 2019 Time Seen by a Provider: 07:30 Subjective/Events-last exam Patient was extubated yesterday afternoon per RN. States since that time her vital signs have been stable and maintaining oxygen sat's on NC. Patient is alert and oriented x 4 this morning. She states she is not having any nausea, vomiting, or diarrhea. She denies episodes of emesis as well. Lungs are CTAB. Heart is RRR. BS are normoactive x 4 quadrants. Abdomen is soft to palpation, but is diffusely tender to palpation. She reports her abdominal incisional pain is a 10/10 currently. She is tolerating ice chips thus far well. She reports she has not had a BM postop yet nor is she passing flatus. CARIDAD drain intact with sanguinous output, output minimal per nursing report. Abdominal incision dressings intact and scant shadowing noted. Salazar intact and output has been good per nursing output. NG to LIS, output scant, secretion withing tubing is sanguinous. Her morning hemoglobin and hematocrit are 7.5 and 21 repsectively. Platelets 97. COVID PCR has resulted as negative. Review of Systems General: No Chills, No Night Sweats; Appetite (decreased) HEENT: No Head Aches, No Visual Changes Pulmonary: No Dyspnea, No Cough Cardiovascular: No: Chest Pain, Palpitations, Edema Gastrointestinal: Abdominal Pain (Incisional pain), Other (Nasogastric tube present); No: Nausea, Vomiting Genitourinary: No Dysuria, No Frequency; Other (salazar catheter present) Neurological: No: Weakness, Numbness, Confusion Focused Exam Lactate Level 12/15/19 06:20: Lactic Acid Level 1.23 12/16/19 02:40: Lactic Acid Level 2.82*H 12/16/19 05:00: Lactic Acid Level 1.51 Objective Exam Vital Signs Date Time Temp Pulse Resp B/P (MAP) Pulse Ox O2 Delivery O2 Flow Rate FiO2 12/17/19 06:00 105 24 143/71 (95) 96 Nasal Cannula 3.00 12/17/19 05:00 88 14 116/65 (82) 97 Nasal Cannula 3.00 12/17/19 04:00 101 20 157/67 (97) 95 Nasal Cannula 3.00 12/17/19 04:00 97 Nasal Cannula 3.00 12/17/19 03:00 90 15 115/69 (84) 98 Nasal Cannula 3.00 12/17/19 02:00 92 15 124/65 (84) 98 Nasal Cannula 3.00 12/17/19 01:51 36.8 12/17/19 01:00 95 12/17/19 01:00 95 13 120/65 (83) 99 Nasal Cannula 3.00 12/17/19 00:00 97 15 122/66 (84) 97 Nasal Cannula 3.00 12/17/19 00:00 97 Nasal Cannula 3.00 12/16/19 23:00 93 14 132/71 (91) 100 Nasal Cannula 3.00 12/16/19 22:11 97 Nasal Cannula 3.00 12/16/19 22:00 107 19 123/68 (86) 96 Nasal Cannula 3.00 12/16/19 21:00 109 24 138/72 (94) 98 Nasal Cannula 3.00 12/16/19 20:00 100 15 101/63 (76) 98 Nasal Cannula 3.00 12/16/19 20:00 97 Nasal Cannula 3.00 12/16/19 20:00 37.1 12/16/19 19:00 101 16 111/67 (82) 97 Nasal Cannula 3.00 12/16/19 19:00 101 12/16/19 18:00 98 16 112/75 (87) 97 Nasal Cannula 3.00 12/16/19 17:41 37.0 102 23 112/63 97 Nasal Cannula 3.00 12/16/19 17:26 37.0 100 18 118/69 97 Nasal Cannula 3.00 12/16/19 17:10 37.0 107 25 119/65 96 Nasal Cannula 3.00 12/16/19 17:00 98 17 112/63 (79) 97 Nasal Cannula 3.00 12/16/19 16:00 97 Nasal Cannula 3.00 12/16/19 16:00 98 22 122/71 (88) 97 Nasal Cannula 3.00 12/16/19 15:26 Nasal Cannula 3.00 12/16/19 15:23 37.0 12/16/19 15:14 97 Nasal Cannula 10.00 12/16/19 15:10 37.2 97 20 120/67 97 Nasal Cannula 4.00 12/16/19 15:00 93 22 119/69 (86) 97 Nasal Cannula 5.00 12/16/19 14:55 36.8 96 20 125/63 97 Nasal Cannula 4.00 12/16/19 14:00 92 22 104/51 (68) 99 Nasal Cannula 5.00 12/16/19 13:15 Nasal Cannula 5.00 12/16/19 13:00 84 15 143/42 (75) 93 Mechanical Ventilator 60.00 12/16/19 12:40 97 12/16/19 12:00 78 17 151/48 (82) 98 Mechanical Ventilator 60.00 12/16/19 12:00 99 Mechanical Ventilator 21 12/16/19 11:41 71 15 136/46 100 12/16/19 11:00 71 23 148/51 (83) 100 Mechanical Ventilator 60.00 12/16/19 10:57 78 146/53 12/16/19 10:56 78 143/53 12/16/19 10:00 71 15 130/44 (72) 100 Mechanical Ventilator 60.00 12/16/19 09:45 69 15 129/43 100 Mechanical Ventilator 50 12/16/19 09:00 70 15 125/42 (69) 100 Mechanical Ventilator 60.00 12/16/19 08:17 36.4 12/16/19 08:00 70 21 132/60 (84) 100 Mechanical Ventilator 60.00 12/16/19 08:00 100 Mechanical Ventilator 50 I & O 12/17/19 07:00 Intake Total 3350 ml Output Total 1550 ml Balance 1800 ml Capillary Refill : Less Than 3 SecondsLess Than 3 Seconds General Appearance: No Apparent Distress, WD/WN HEENT: PERRL/EOMI, Pharynx Normal, Other (NGT present) Neck: Normal Inspection, Non Tender Respiratory: Lungs Clear, Normal Breath Sounds, No Accessory Muscle Use, No Respiratory Distress, Other (O2 delivery via NC) Cardiovascular: Regular Rate, Rhythm, No Edema, No Murmur, Normal Peripheral Pulses Peripheral Pulses: 3+ Carotid (R); 2+ Dorsalis Pedis (R), 2+ Left Dors-Pedis (L), 2+ Radial Pulses (R), 2+ Radial Pulses (L) Gastrointestinal: normal bowel sounds, soft, tenderness (incisiona tenderness), other (Incision clean and intact. ) Extremity: Normal Capillary Refill, Non Tender, No Calf Tenderness, No Pedal Edema Neurologic/Psychiatric: Alert, Oriented x3, No Motor/Sensory Deficits; No Disoriented Skin: Normal Color, Warm/Dry, Pallor (generalized pallor) Results Lab Laboratory Tests 12/16/19 09:00: White Blood Count 5.6, Red Blood Count 2.23L, Hemoglobin 6.9#*L, Hematocrit 19*L , Mean Corpuscular Volume 86, Mean Corpuscular Hemoglobin 31, Mean Corpuscular Hemoglobin Concent 36, Red Cell Distribution Width 14.9H, Platelet Count 56L, Mean Platelet Volume 9.5, Prothrombin Time 16.1H, INR Comment 1.3 12/16/19 11:32: Glucometer 150H 12/16/19 17:22: Glucometer 117H 12/16/19 19:05: Hemoglobin 7.5L, Hematocrit 21L 12/16/19 23:40: Glucometer 118H 12/17/19 02:10: White Blood Count 7.1, Red Blood Count 2.43L, Hemoglobin 7.5L, Hematocrit 21L, Mean Corpuscular Volume 87, Mean Corpuscular Hemoglobin 31, Mean Corpuscular Hemoglobin Concent 35, Red Cell Distribution Width 15.3H, Platelet Count 97L, Mean Platelet Volume 9.7, Immature Granulocyte % (Auto) 0, Neutrophils (%) (Auto) 81H, Lymphocytes (%) (Auto) 10L, Monocytes (%) (Auto) 8, Eosinophils (%) (Auto) 1, Basophils (%) (Auto) 0, Neutrophils # (Auto) 5.8, Lymphocytes # (Auto) 0.7L, Monocytes # (Auto) 0.6, Eosinophils # (Auto) 0.1, Basophils # (Auto) 0.0, Immature Granulocyte # (Auto) 0.0, Sodium Level 138, Potassium Level 3.4L, Chloride Level 105, Carbon Dioxide Level 27, Anion Gap 6, Blood Urea Nitrogen 5L , Creatinine 0.54L, Estimat Glomerular Filtration Rate > 60, BUN/Creatinine Ratio 9, Glucose Level 115H, Calcium Level 7.2L, Phosphorus Level 2.5, Magnesium Level 2.0 12/17/19 05:12: Glucometer 120H Microbiology 12/16/19 MRSA Screen - Final, Complete MRSA not isolated Assessment/Plan Assessment/Plan Assessment/Plan S/P Oversew of bleeding Gastro-Duodenal artery Hypotension -resolved Anemia Pelvic Fx - old Continue maintenance fluids, IV antibiotics, and post op pain control. Continue to monitor Hemoglobin and Hematocrits. Clinical Quality Measures DVT/VTE Risk/Contraindication: Risk Factor Score Per Nursin RFS Level Per Nursing on Admit: 2=Moderate JOHNNIE GEORGES DO 12/17/19 1349: Subjective Time Seen by a Provider: 12:32 Subjective/Events-last exam Pt seen and examined, states doing ok but still having lots of pain. Wants her NGT out. Review of Systems Pulmonary: No Dyspnea, No Cough Cardiovascular: No: Chest Pain, Palpitations Gastrointestinal: Abdominal Pain (Incisional pain); No: Nausea, Vomiting Objective Exam General Appearance: No Apparent Distress, Chronically ill HEENT: Other (NGT present, with dark drainage) Respiratory: Lungs Clear, Normal Breath Sounds, No Accessory Muscle Use, No Respiratory Distress Cardiovascular: Regular Rate, Rhythm, No Murmur Gastrointestinal: normal bowel sounds, soft, tenderness (incisiona tenderness), other (Incision clean and intact. CARIDAD serosanguinous fluid, almost no blood) Neurologic/Psychiatric: Alert, Oriented x3 Assessment/Plan Assessment/Plan Assessment/Plan S/P Oversew of bleeding gastro-duodenal artery Pyloromyotomy Plan to order CT of abd with oral contrast to check for ulcer perforation and integrity of closure. Pt ok to go to floor today. Supervisory-Addendum Brief Verification & Attestation Participated in pt care: history, MDM, physical Personally performed: exam, history, MDM Care discussed with: Medical Student Procedures: n/a Verification and Attestation of Medical Student E/M Service A medical student performed and documented this service. I then reviewed and verified all information documented by the medical student and made modifications to such information, when appropriate. I personally performed a physical exam, medical decision making and then discussed any differences between the notes and made revisions as necessary to create one note. Johnnie Georges , 12/17/19 , 13:52 [employer] M[employer] MED STUDENT Dec 17, 2019 07:50 JOHNNIE GEORGES DO Dec 17, 2019 13:49
[2019-12-17] MEDS: FLUCONAZOLE 200 MG/100 ML 50 ML, EMPTY IV BAG (PVC) 1 EA IV SCH ×2 (08:04)
[2019-12-17] MEDS: PANTOPRAZOLE INJECTION 200 MG in NS (IVPB) 100 ML IV SCH ×2 (14:35→18:13)
[2019-12-17] MEDS: PARoxetine 20 MG (PAXIL) TAB PO SCH (19:58)
[2019-12-18] VITALS (8 sets, daily range): BP systolic 139–180; BP diastolic 63–79
[2019-12-18] MEDS: LACTATED RINGERS 1,000 ML IV SCH ×4 (00:59→22:51)
[2019-12-18] MEDS: PIPERACILLIN/TAZO 4.5 GM/NS 100 ML IV SCH ×6 (02:13→18:09)
[2019-12-18] MEDS: morphine INJ 4 MG/ML 1 ML (VIAL/SYRINGE) IVP PRN ×6 (02:32→20:03)
[2019-12-18 06:01] LABS: BUN/CREATININE RATIO 9; CALCIUM 7.3 MG/DL (8.5-10.1); CARBON DIOXIDE 28 MMOL/L (21-32); CHLORIDE 98 MMOL/L (98-107); CREATININE SERUM 0.46 MG/DL (0.60-1.30); GFR ESTIMATED > 60; GLUCOSE 94 MG/DL (70-105); MAGNESIUM 1.7 MG/DL (1.6-2.4); SODIUM 134 MMOL/L (135-145)
[2019-12-18] MEDS: KCL 20 MEQ TAB (K-DUR) PO SCH (06:46)
[2019-12-18] MEDS: POTASSIUM CL 10MEQ/50ML IVPB 50 ML IV SCH ×6 (06:47→12:03)
[2019-12-18] MEDS: MAGNESIUM 1 GM/100 ML IVPB 100 ML IV SCH ×3 (06:47→07:09)
--- NOTE | 2019-12-18 08:30 | NUR ---
MS 4MG IV FOR PAIN.
[2019-12-18] MEDS: LOSARTAN 100 MG (COZAAR) TABLET PO SCH (09:07)
[2019-12-18] MEDS: PANTOPRAZOLE 40 MG (PROTONIX) VIAL IV SCH ×2 (09:11→20:03)
[2019-12-18] MEDS: FLUCONAZOLE 200 MG/100 ML 50 ML, EMPTY IV BAG (PVC) 1 EA IV SCH ×2 (09:11)
--- NOTE | 2019-12-18 09:35 | Progress Note - Surgery ---
GRUPO MOREL MED STUDENT 12/18/19 0935: Subjective Date Seen by a Provider: Dec 18, 2019 Time Seen by a Provider: 09:15 Subjective/Events-last exam Patient alert and oriented x 4. Sitting up in chair by bedside this morning. Reports she is still having a fair amount of abdominal incisional pain. She has been taking morphine with good effect as needed. Denies nausea or vomiting. Reports she is passing gas. RN report indicates that she passed between 250- 300cc's of dark purple colored blood in her BM this morning, no clots present. She is tolerating ice chips well. Abdomen is soft with BS present in all quadrants. Abdomen is mildly tender to palpation, especially around dressings. Dressings to abdominal incision clean, dry, and intact, scant shadowing noted. CARIDAD drainage is serosanguinous and output is minimal per RN report. NG intact and had 30ml out overnight per RN report. Salazar intact and output is good. Patient reports she wants the NGT out if possible. VSS this morning. Remains on 3L oxygen via NC. Did have some elevated BP's in the 180's overnight. AM potassium 3.0. Review of Systems General: No Chills, No Night Sweats HEENT: No Head Aches, No Visual Changes Pulmonary: No Dyspnea, No Cough Cardiovascular: Edema (trace edema noted BLE); No: Chest Pain, Palpitations Gastrointestinal: Abdominal Pain; No: Nausea, Vomiting Genitourinary: Other (salazar present) Musculoskeletal: No: neck pain, shoulder pain Neurological: No: Weakness, Numbness Focused Exam Lactate Level 12/16/19 02:40: Lactic Acid Level 2.82*H 12/16/19 05:00: Lactic Acid Level 1.51 Objective Exam Vital Signs Date Time Temp Pulse Resp B/P (MAP) Pulse Ox O2 Delivery O2 Flow Rate FiO2 12/18/19 08:00 36.9 97 20 152/67 (95) 96 Nasal Cannula 3.00 12/18/19 03:40 37.4 90 18 159/71 (100) 96 Nasal Cannula 3.00 12/18/19 00:30 37.8 103 20 142/69 (93) 95 Nasal Cannula 3.00 12/18/19 00:00 37.9 109 22 180/79 (112) 93 Nasal Cannula 3.00 12/17/19 20:15 37.9 101 18 169/73 (105) 95 Nasal Cannula 3.00 12/17/19 20:15 Nasal Cannula 3.00 12/17/19 19:48 37.9 99 16 181/84 (116) 96 Nasal Cannula 3.00 12/17/19 15:51 37.4 94 14 141/69 (93) 94 Nasal Cannula 3.00 12/17/19 14:00 105 19 148/73 (98) 96 Room Air 12/17/19 13:00 85 23 163/75 (104) 98 Room Air 12/17/19 12:51 97 Nasal Cannula 2.00 12/17/19 12:41 91 12/17/19 12:00 98 20 120/58 (78) 97 Room Air 12/17/19 11:59 37.3 12/17/19 11:05 Room Air 12/17/19 11:00 95 14 116/50 (72) 84 Nasal Cannula 2.00 12/17/19 10:00 108 26 136/79 (98) 93 Nasal Cannula 2.00 I & O 12/18/19 07:00 Intake Total 2220 ml Output Total 1880 ml Balance 340 ml Capillary Refill : Less Than 3 SecondsLess Than 3 Seconds General Appearance: No Apparent Distress, WD/WN, Chronically ill HEENT: PERRL/EOMI, Pharynx Normal, Other (NGT present, with dark drainage) Neck: Normal Inspection, Non Tender Respiratory: Lungs Clear, Normal Breath Sounds, No Accessory Muscle Use, No Respiratory Distress Cardiovascular: Regular Rate, Rhythm, No Murmur, Normal Peripheral Pulses, Other (trace edmea Bilat feet/ankles) Peripheral Pulses: 3+ Carotid (R); 2+ Dorsalis Pedis (R), 2+ Left Dors-Pedis (L), 2+ Radial Pulses (R), 2+ Radial Pulses (L) Gastrointestinal: normal bowel sounds, soft, tenderness (incisiona tenderness), other (Incision clean and intact. CARIDAD serosanguinous fluid, almost no blood) Extremity: Normal Capillary Refill, Non Tender, No Calf Tenderness Neurologic/Psychiatric: Alert, Oriented x3, No Motor/Sensory Deficits, Normal Mood/Affect Skin: Normal Color, Warm/Dry, Pallor (generalized pallor), Other (abdominal incisions dressed) Results Lab Laboratory Tests 12/17/19 23:59: Glucometer 97 12/18/19 05:33: Sodium Level 134L, Potassium Level 3.0L, Chloride Level 98, Carbon Dioxide Level 28, Anion Gap 8, Blood Urea Nitrogen 4L, Creatinine 0.46L, Estimat Glomerular Filtration Rate > 60, BUN/Creatinine Ratio 9, Glucose Level 94, Calcium Level 7.3L, Magnesium Level 1.7 12/18/19 06:56: Glucometer 70 Microbiology 12/16/19 MRSA Screen - Final, Complete MRSA not isolated Assessment/Plan Assessment/Plan Assessment/Plan S/P Oversew of bleeding gastro-duodenal artery Pyloromyotomy Plan to order CT of abd with oral contrast to check for ulcer perforation and integrity of closure. Continue pain meds, IVF's, and antibiotics per orders. Encourage ambulation as tolerated. Encourage Incentive spirometry use as well. Clinical Quality Measures DVT/VTE Risk/Contraindication: Risk Factor Score Per Nursin RFS Level Per Nursing on Admit: 2=Moderate JOHNNIE GEORGES DO 12/18/19 1204: Subjective Time Seen by a Provider: 11:48 Subjective/Events-last exam Pt seen and examined, states she is doing better but still has pain. +flatus Review of Systems General: No Chills, No Night Sweats Pulmonary: No Dyspnea, No Cough Cardiovascular: No: Chest Pain, Palpitations Gastrointestinal: Abdominal Pain; No: Nausea, Vomiting Objective Exam General Appearance: No Apparent Distress, Anxious Respiratory: Lungs Clear, Normal Breath Sounds, No Accessory Muscle Use Cardiovascular: Regular Rate, Rhythm, No Murmur Gastrointestinal: soft, tenderness (incisiona tenderness), other (Incision clean and intact. CARIDAD serosanguinous fluid, almost no blood) Assessment/Plan Assessment/Plan Assessment/Plan S/P Oversew of bleeding gastro-duodenal artery Plan CT of abd with oral contrast to check integrity/patency. May be able to d/c NGT and start on clears if ok. Supervisory-Addendum Brief Verification & Attestation Participated in pt care: history, MDM, physical Personally performed: exam, history, MDM Care discussed with: Medical Student Procedures: n/a Verification and Attestation of Medical Student E/M Service A medical student performed and documented this service. I then reviewed and verified all information documented by the medical student and made modifications to such information, when appropriate. I personally performed a physical exam, medical decision making and then discussed any differences between the notes and made revisions as necessary to create one note. Johnnie Georges , 12/18/19 , 12:04 [employer] MED STUDENT Dec 18, 2019 09:35 JOHNNIE GEORGES DO Dec 18, 2019 12:04
[2019-12-18] MEDS ORDERED: CALC300T4 PO (11:30)
[2019-12-18] MEDS ORDERED: IBUP-2473 PO (11:34)
[2019-12-18] MEDS ORDERED: DIATRIZOATE MEGLUM/SODIUM 37% 120 ML (GASTROGRAFIN) PO ONE (12:00)
--- NOTE | 2019-12-18 13:22 | Diagnostic Imaging Report ---
PROCEDURE: CT abdomen without contrast. TECHNIQUE: Multiple contiguous axial images were obtained through the abdomen without the use of intravenous contrast. Auto Exposure Controls were utilized during the CT exam to meet ALARA standards for radiation dose reduction. INDICATION: Status post gastric ulcer surgery. Study is performed to evaluate for contrast extravasation. FINDINGS: The patient was administered oral contrast. Lung bases demonstrate trace left pleural effusion. There is moderate amount of parenchymal consolidation with air bronchograms in the right lower lobe. There is some minimal patchy infiltrate in the left upper lobe as well as subsegmental atelectasis in the left lower lobe. Postsurgical changes to the abdomen with midline skin jimmy are noted. There is a drain in the right upper quadrant. There is small amount of free fluid in the right upper quadrant as well. Liver and gallbladder are unremarkable. There are postsurgical changes to the stomach. Stomach does contain oral contrast injected through the NG tube. Contrast does pool within the previously noted ulcer crater along the posterior wall at the pyloroduodenal junction. There is an air tract extending anteriorly at the same level. A very small collection of contrast is seen anterior and slightly cephalad to the pyloroduodenal junction consistent with small amount of extravasated contrast. There is moderate amount of free air present at this location as well. No other areas of contrast extravasation are seen. Contrast also extends into proximal small bowel loops. The pancreas and spleen are unremarkable. No adrenal mass is detected. Kidneys are unremarkable. IMPRESSION: 1. Postoperative changes. There is a small amount of contrast extravasation from the anterior wall of the stomach near the pyloroduodenal junction. A moderate pneumoperitoneum persists. 2. Small left pleural effusion as well as bilateral pulmonary infiltrates in most consolidated right lower lobe. 3. Minimal right upper quadrant free fluid. Dictated by: Dictated on workstation # [id number]
--- NOTE | 2019-12-18 13:30 | NUR ---
midline dressing changed. jimmy intact, well-approximated. area cleansed with alcohol swabs, no drainage noted. skin prep applied, clean, dry island dressing applied. dressing around ALIZA drain changed. [facility]o-sanguinous [facility] stitch still intact, area cleansed with alcohol prep. skin prep applied, aliza drainage gauze applied folded around drain, taped. small areas of skin redness from previous tape haskins. areas cleansed, lotion applied. left SIMON at this time. pt mellisa. well, expresses feelings regarding abrupt surgery, thanks us for taking care of her, expresses gratitude that she is still alive. therapeutic communication shared. will con't to monitor.
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
[2019-12-18] MEDS: PARoxetine 20 MG (PAXIL) TAB PO SCH (20:03)
[2019-12-19 00:23] VITALS: BP 148/67
[2019-12-19] MEDS: morphine INJ 4 MG/ML 1 ML (VIAL/SYRINGE) IVP PRN ×8 (00:31→22:23)
[2019-12-19] MEDS: PIPERACILLIN/TAZO 4.5 GM/NS 100 ML IV SCH ×6 (02:04→17:40)
[2019-12-19 04:21] VITALS: BP 140/61
[2019-12-19] MEDS: LACTATED RINGERS 1,000 ML IV SCH ×3 (05:42→20:05)
[2019-12-19 05:48] LABS: CHLORIDE 96 MMOL/L (98-107); POTASSIUM 3.2 MMOL/L (3.6-5.0); SODIUM 134 MMOL/L (135-145)
[2019-12-19 05:49] LABS: CALCIUM 7.8 MG/DL (8.5-10.1)
[2019-12-19 05:50] LABS: GLUCOSE 82 MG/DL (70-105)
[2019-12-19 05:51] LABS: CARBON DIOXIDE 26 MMOL/L (21-32)
[2019-12-19 05:54] LABS: CREATININE SERUM 0.45 MG/DL (0.60-1.30); GFR ESTIMATED > 60
[2019-12-19 05:55] LABS: BUN/CREATININE RATIO 7
[2019-12-19 05:56] LABS: MAGNESIUM 1.7 MG/DL (1.6-2.4)
[2019-12-19] MEDS: POTASSIUM CL 10MEQ/50ML IVPB 50 ML IV SCH ×5 (06:00→12:40)
[2019-12-19] MEDS: KCL 20 MEQ TAB (K-DUR) PO SCH (06:00)
[2019-12-19] MEDS: MAGNESIUM 1 GM/100 ML IVPB 100 ML IV SCH ×3 (06:00→07:53)
--- NOTE | 2019-12-19 07:25 | NUR ---
[address] Ahuja and informed him of current patient results including blood sugar of 73, potassium of 3.2, and magnesium of 1.7. Also informed him that patient has not had hemoglobin level checked since 12/17/19. Orders received for one time 50 ml syringe of D50, 12/19/19 AM CBC, and to administer potassium and magnesium per protocol.
[2019-12-19] MEDS ORDERED: DEXTROSE 50% 50 ML (IMS) SYR IV NR (07:30)
[2019-12-19] MEDS ORDERED: DEXTROSE 50% 50 ML (IMS) SYR ONE (07:34)
[2019-12-19 07:51] LABS: BASOPHILS % (AUTO) 0 % (0-10); EOSINOPHILS # (AUTO) 0.7 10^3/uL (0.0-0.3); EOSINOPHILS % (AUTO) 10 % (0-10); HEMATOCRIT 21 % (35-52); HEMOGLOBIN 7.2 g/dL (11.5-16.0); LYMPHOCYTES # (AUTO) 0.4 10^3/uL (1.0-4.0); LYMPHOCYTES % (AUTO) 6 % (12-44); MEAN CORPUSCULAR HEMOGLOBIN 31 pg (25-34); MEAN CORPUSCULAR HGB CONC 35 g/dL (32-36); MEAN CORPUSCULAR VOLUME 90 fL (80-99); MEAN PLATELET VOLUME 9.6 fL (9.0-12.2); MONOCYTES # (AUTO) 0.6 10^3/uL (0.0-1.0); MONOCYTES % (AUTO) 8 % (0-12); NEUTROPHILS # (AUTO) 5.2 10^3/uL (1.8-7.8); NEUTROPHILS % (AUTO) 75 % (42-75); PLATELET COUNT 145 10^3/uL (130-400); WHITE BLOOD COUNT 6.9 10^3/uL (4.3-11.0)
[2019-12-19 08:00] VITALS: BP 146/77
--- NOTE | 2019-12-19 08:54 | Progress Note - Surgery ---
RGUPO MOREL MED STUDENT 12/19/19 0854: Subjective Date Seen by a Provider: Dec 19, 2019 Time Seen by a Provider: 08:05 Subjective/Events-last exam Patient reports she slept well overnight. Reports that she already sat up in the bedside chair for about two hours this morning. Reports she has been using the incentive spirometer frequently and thinks she 'overdid it." She complains of abdominal incisional pain still, rates it currently at a 4/10. Reports that she has some pain in the RUQ now, but thinks its related to using the incentive spirometer. She denies nausea or vomiting. Reports she is passing gas and stooling without difficulty, denies any blood in the stool. Reports that the NGT is uncomfortable and would like it out. Review of Systems General: No Chills, No Night Sweats HEENT: No Head Aches, No Visual Changes Pulmonary: No Dyspnea, No Cough Cardiovascular: No: Chest Pain Gastrointestinal: Abdominal Pain (incisional pain); No: Nausea, Vomiting Genitourinary: Other (salazar present) Musculoskeletal: No: neck pain, shoulder pain Neurological: No: Numbness, Change in speech Objective Exam Vital Signs Date Time Temp Pulse Resp B/P (MAP) Pulse Ox O2 Delivery O2 Flow Rate FiO2 12/19/19 04:21 36.6 99 20 140/61 (87) 97 Nasal Cannula 1.00 12/19/19 00:23 36.3 93 20 148/67 (94) 96 Nasal Cannula 1.00 12/18/19 20:05 36.0 86 20 166/75 (105) 99 Nasal Cannula 1.00 12/18/19 20:00 99 Nasal Cannula 2.00 12/18/19 19:33 36.6 78 18 179/74 (109) 100 Nasal Cannula 3.00 12/18/19 16:00 37.0 80 18 139/63 (88) 99 Nasal Cannula 3.00 12/18/19 12:05 36.3 90 16 146/69 (94) 97 Nasal Cannula 3.00 I & O 12/19/19 07:00 Intake Total 5416 ml Output Total 3455 ml Balance 1961 ml Capillary Refill : Less Than 3 SecondsLess Than 3 Seconds General Appearance: No Apparent Distress, WD/WN HEENT: PERRL/EOMI, Pharynx Normal, Other (NGT present, with dark drainage) Neck: Normal Inspection, Non Tender Respiratory: Lungs Clear, Normal Breath Sounds, No Accessory Muscle Use, No Respiratory Distress Cardiovascular: Regular Rate, Rhythm, No Murmur, Normal Peripheral Pulses Peripheral Pulses: 3+ Carotid (R); 2+ Dorsalis Pedis (R), 2+ Left Dors-Pedis (L), 2+ Radial Pulses (R), 2+ Radial Pulses (L) Gastrointestinal: normal bowel sounds, soft, tenderness (incisiona tenderness), other (Incision clean and intact. CARIDAD serosanguinous fluid ) Extremity: Normal Capillary Refill, Non Tender, No Calf Tenderness Neurologic/Psychiatric: Alert, Oriented x3, No Motor/Sensory Deficits, Normal Mood/Affect Skin: Normal Color, Warm/Dry, Pallor (generalized pallor), Other (abdominal incisions dressed) Results Lab Laboratory Tests 12/18/19 11:28: Glucometer 97 12/18/19 13:11: Lab Scanned Report Transfusion Reaction Form 12/18/19 17:56: Glucometer 93 12/19/19 00:21: Glucometer 91 12/19/19 05:21: Sodium Level 134L, Potassium Level 3.2L, Chloride Level 96L, Carbon Dioxide Level 26, Anion Gap 12, Blood Urea Nitrogen 3L, Creatinine 0.45L, Estimat Glomerular Filtration Rate > 60, BUN/Creatinine Ratio 7, Glucose Level 82, Calcium Level 7.8L, Magnesium Level 1.7 12/19/19 06:42: Glucometer 73 12/19/19 07:45: White Blood Count 6.9, Red Blood Count 2.30L, Hemoglobin 7.2L, Hematocrit 21L, Mean Corpuscular Volume 90, Mean Corpuscular Hemoglobin 31, Mean Corpuscular Hemoglobin Concent 35, Red Cell Distribution Width 14.7H, Platelet Count 145, Mean Platelet Volume 9.6, Immature Granulocyte % (Auto) 1, Neutrophils (%) (Auto) 75, Lymphocytes (%) (Auto) 6L, Monocytes (%) (Auto) 8, Eosinophils (%) (Auto) 10, Basophils (%) (Auto) 0, Neutrophils # (Auto) 5.2, Lymphocytes # (Auto) 0.4L, Monocytes # (Auto) 0.6, Eosinophils # (Auto) 0.7H, Basophils # (Auto) 0.0, Immature Granulocyte # (Auto) 0.1 Microbiology 12/16/19 MRSA Screen - Final, Complete MRSA not isolated Assessment/Plan Assessment/Plan Assessment/Plan S/P Oversew of bleeding gastro-duodenal artery Continue current IVF's, antibiotics, and pain management strategy. Continue to trend hemoglobin and hematocrit daily. Encourage frequent use of incentive spirometer. Encourage frequent sitting up in bedside chair and ambulation. Clinical Quality Measures DVT/VTE Risk/Contraindication: Risk Factor Score Per Nursin RFS Level Per Nursing on Admit: 2=Moderate JHONNIE GEORGES DO 12/19/19 1130: Subjective Time Seen by a Provider: 10:23 Subjective/Events-last exam Pt seen and examined, states she is feeling better. Wants to eat but understands she has to wait until there is no leak. Review of Systems General: No Chills, No Night Sweats HEENT: No Head Aches, No Visual Changes Pulmonary: No Dyspnea, No Cough Cardiovascular: No: Chest Pain Gastrointestinal: Abdominal Pain (incisional pain); No: Nausea, Vomiting Objective Exam General Appearance: No Apparent Distress, WD/WN HEENT: Other (NGT present, with dark drainage) Respiratory: Lungs Clear, No Accessory Muscle Use, No Respiratory Distress, Decreased Breath Sounds (at bases, right worse than left) Cardiovascular: Regular Rate, Rhythm, No Murmur Gastrointestinal: soft, tenderness (incisiona tenderness), other (Incision clean and intact. CARIDAD serosanguinous fluid ) Assessment/Plan Assessment/Plan Assessment/Plan S/P Oversew of bleeding gastro-duodenal artery CT with contrast showed very small leak, will continue npo except a few ice chips and continue NGT. Repeat CT on sunday to recheck leak. Pt told she must use IS and ambulate; will make sure RT sees her. Supervisory-Addendum Brief Verification & Attestation Participated in pt care: history, MDM, physical Personally performed: exam, history, MDM Care discussed with: Medical Student Procedures: n/a Verification and Attestation of Medical Student E/M Service A medical student performed and documented this service. I then reviewed and verified all information documented by the medical student and made modifications to such information, when appropriate. I personally performed a physical exam, medical decision making and then discussed any differences between the notes and made revisions as necessary to create one note. Johnnie Georges , 12/19/19 , 11:30 GRUPO MOREL MED STUDENT Dec 19, 2019 08:54 JOHNNIE GEORGES DO Dec 19, 2019 11:30
[2019-12-19] MEDS: LOSARTAN 100 MG (COZAAR) TABLET PO SCH (09:09)
[2019-12-19] MEDS: PANTOPRAZOLE 40 MG (PROTONIX) VIAL IV SCH ×2 (09:10→20:03)
[2019-12-19] MEDS: FLUCONAZOLE 200 MG/100 ML 50 ML, EMPTY IV BAG (PVC) 1 EA IV SCH ×2 (09:10)
--- NOTE | 2019-12-19 10:47 | NUR ---
Note pt is NPO x4d, per chart review. Would recommend either advancing diet or beginning enteral or parenteral nutrition, to reduce risk of malnutrition. If enteral nutrition is preferred, would recommend the following TF: Jevity 1.5 at goal rate of 45ml/hr. Begin at 10ml/hr and increase by 10ml q8h as medically able and as tolerated. At goal rate, provides 1620 kcal (16 kcal/kg); 69 g Pro (0.7 g Pro/kg); and 821ml free water. Flush with 25ml water q4h for hydration status. With flushes, provides 971ml free water. If parenteral nutrition is preferred, would recommend using TPN formula providing 1525 kcal (15 kcal/kg) and 82 g Pro (0.8 g Pro/kg). Will continue to follow and reassess as pt needs, intake, and status change. Flori Lopez MS RD LD [phone] (cell)
[2019-12-19] MEDS ORDERED: RT-ALBUTEROL SULF 2.5 MG/3 ML PRE-MIX VIAL INH PRN (11:30)
[2019-12-19 12:00] VITALS: BP 183/78
[2019-12-19 15:17] VITALS: BP 168/74
[2019-12-19 19:08] VITALS: BP 164/71
--- NOTE | 2019-12-19 19:09 | Physician Query Clarification ---
"Physician Query-General Query to Physician: The medical record reflects the following clinical scenario: History/Risk factors: Bleeding gastroduodenal artery, Excessive Motrin use prior to admission Clinical Findings: Admission BP 80-90s systolic decreased to 60s systolic, HGB 5 - 6 for 12 hours Treatment: >94450 MLS fluids since admission, Vasopressin, Norepi, Albumin, 13 units RBC, Question: Do you agree with the impression of Hypovolemic Shock per Dr. Janine liu? If you agree, please document in Progress Notes or Discharge Summary. 1. Yes; will document Hypovolemic shock, resolved in the Progress Notes 2. No; will continue to document Hypotension, resolved in the Progress Notes 3. Other; will document explanation of clinical findings 4. Clinically undetermined; no explanation for clinical findings Please remember a lack of response to the above will prompt a phone page by CDI/coding staff. In responding to this query, please exercise your independent professional judgment. The purpose of this communication is to more accurately reflect the complexity of your patients condition. The fact that a question is asked does not imply that any particular answer is desired or expected. Thank you for timely response to this clarification. Sara Villagran, MSN, RN RN Specialist-Clinical Doc Improvement CD -Health Info Mgmt Operations [address] [facility] t: [phone] | f: [phone] If you are unable to reach me at my extension, I may be working from home. Please contact me at [phone] PHYSICIAN RESPONSE: Based on the clinical findings in the record, please respond to the query above on this document as an addendum. Physician Response: 1 Physician Response Yes, I agree with Hypovolemic shock. If you have questions please contact: Electrical Sign Servicer: Ext: Thank you for your time and cooperation. Clinical Hospital Coder/Electrical Sign Servicer This is a permanent part of the medical record SARA VILLAGRAN Dec 19, 2019 19:09 SELVIN GEORGES DO Dec 22, 2019 08:23"
[2019-12-19] MEDS: PARoxetine 20 MG (PAXIL) TAB PO SCH (20:04)
[2019-12-20] VITALS (8 sets, daily range): BP systolic 139–170; BP diastolic 72–93
[2019-12-20] MEDS: morphine INJ 4 MG/ML 1 ML (VIAL/SYRINGE) IVP PRN ×4 (02:14→13:02)
[2019-12-20] MEDS: PIPERACILLIN/TAZO 4.5 GM/NS 100 ML IV SCH ×4 (02:14→18:17)
[2019-12-20] MEDS: LACTATED RINGERS 1,000 ML IV SCH ×2 (03:48→08:37)
[2019-12-20 05:37] LABS: BASOPHILS % (AUTO) 0 % (0-10); EOSINOPHILS # (AUTO) 0.6 10^3/uL (0.0-0.3); EOSINOPHILS % (AUTO) 14 % (0-10); LYMPHOCYTES # (AUTO) 0.5 10^3/uL (1.0-4.0); LYMPHOCYTES % (AUTO) 10 % (12-44); MEAN CORPUSCULAR HEMOGLOBIN 31 pg (25-34); MEAN CORPUSCULAR HGB CONC 34 g/dL (32-36); MEAN CORPUSCULAR VOLUME 91 fL (80-99); MEAN PLATELET VOLUME 9.3 fL (9.0-12.2); MONOCYTES # (AUTO) 0.5 10^3/uL (0.0-1.0); MONOCYTES % (AUTO) 11 % (0-12); NEUTROPHILS # (AUTO) 2.9 10^3/uL (1.8-7.8); NEUTROPHILS % (AUTO) 64 % (42-75); PLATELET COUNT 189 10^3/uL (130-400); WHITE BLOOD COUNT 4.5 10^3/uL (4.3-11.0)
[2019-12-20 05:44] LABS: HEMOGLOBIN 6.7 g/dL (11.5-16.0)
[2019-12-20 05:45] LABS: HEMATOCRIT 20 % (35-52)
[2019-12-20 05:50] LABS: CHLORIDE 96 MMOL/L (98-107); POTASSIUM 2.9 MMOL/L (3.6-5.0); SODIUM 134 MMOL/L (135-145)
[2019-12-20 05:51] LABS: CALCIUM 7.4 MG/DL (8.5-10.1); GLUCOSE 85 MG/DL (70-105)
[2019-12-20 05:53] LABS: CARBON DIOXIDE 27 MMOL/L (21-32)
[2019-12-20] MEDS: POTASSIUM CL 10MEQ/50ML IVPB 50 ML IV SCH (05:54)
[2019-12-20 05:55] LABS: CREATININE SERUM 0.43 MG/DL (0.60-1.30); GFR ESTIMATED > 60
[2019-12-20] MEDS: KCL 20 MEQ TAB (K-DUR) PO SCH (05:55)
[2019-12-20 05:56] LABS: BUN/CREATININE RATIO 5
[2019-12-20 05:58] LABS: MAGNESIUM 1.7 MG/DL (1.6-2.4)
[2019-12-20] MEDS: MAGNESIUM 1 GM/100 ML IVPB 100 ML IV SCH ×3 (06:01→07:30)
--- NOTE | 2019-12-20 06:14 | NUR ---
0589- LAB CALLED THIS RN WITH CRITICAL HBG OF 6.7 AND HCT OF 20. 0614- DR. DEMARCO NOTIFIED OF ABOVE CRITICAL LABS RESULTS. ORDERS TO HOLD OFF ON BLOOD AT THIS TIME AND RECHECK H&H AT 1300.
[2019-12-20] MEDS: POTASSIUM CL 10 MEQ/50 ML IV SCH ×5 (06:33→10:36)
[2019-12-20] MEDS: LOSARTAN 100 MG (COZAAR) TABLET PO SCH (08:37)
[2019-12-20] MEDS: PANTOPRAZOLE 40 MG (PROTONIX) VIAL IV SCH ×2 (08:37→20:46)
[2019-12-20] MEDS: FLUCONAZOLE 200 MG/100 ML 50 ML, EMPTY IV BAG (PVC) 1 EA IV SCH ×2 (08:43)
[2019-12-20] MEDS ORDERED: PIPERACILLIN/TAZOBACTAM (BULK) 4.5 GM in NS (IVPB) 100 ML IV SCH (11:00)
[2019-12-20] MEDS ORDERED: NS IV 500 ML 500 ML IV SCH (11:00)
[2019-12-20] MEDS ORDERED: TPN IV SCH (11:00)
--- NOTE | 2019-12-20 11:09 | Progress Note ---
Subjective Date Seen by a Provider: Dec 20, 2019 Time Seen by a Provider: 10:50 Subjective/Events-last exam Patient seen with Dr. Segura. Patient reports continued pain of the right side more towards the back. Denies any nausea or vomiting. NGT in place. Objective Exam Vital Signs Date Time Temp Pulse Resp B/P (MAP) Pulse Ox O2 Delivery O2 Flow Rate FiO2 12/20/19 08:00 36.9 99 20 159/79 (105) 94 Room Air 12/20/19 04:42 36.6 85 18 139/72 (94) 98 Room Air 12/20/19 00:32 36.2 80 18 152/75 (100) 95 Room Air 12/19/19 20:00 Room Air 12/19/19 19:08 36.8 85 18 164/71 (102) 96 Room Air 12/19/19 15:17 36.8 81 18 168/74 (105) 93 Room Air 12/19/19 12:00 36.8 85 20 183/78 (113) 91 Room Air I & O 12/20/19 07:00 Intake Total 2811 ml Output Total 2545 ml Balance 266 ml Capillary Refill : Less Than 3 SecondsLess Than 3 Seconds General Appearance: No Apparent Distress, WD/WN Respiratory: Normal Breath Sounds, No Accessory Muscle Use, No Respiratory Distress Cardiovascular: Regular Rate, Rhythm, No Edema Gastrointestinal: normal bowel sounds, soft, tenderness, other (Left side CARIDAD drain with SS drainage.) Extremity: Normal Inspection, Normal Range of Motion Neurologic/Psychiatric: Alert, Oriented x3 Skin: Normal Color, Warm/Dry, Other (Midline abdominal incision C/D/I with jimmy in place.) Results Lab Laboratory Tests 12/19/19 11:11: Glucometer 107 12/19/19 17:20: Glucometer 103 12/20/19 00:21: Glucometer 99 12/20/19 05:28: White Blood Count 4.5, Red Blood Count 2.18L, Hemoglobin 6.7*L, Hematocrit 20*L, Mean Corpuscular Volume 91, Mean Corpuscular Hemoglobin 31, Mean Corpuscular Hemoglobin Concent 34, Red Cell Distribution Width 14.4, Platelet Count 189, Mean Platelet Volume 9.3, Immature Granulocyte % (Auto) 0, Neutrophils (%) (Auto) 64, Lymphocytes (%) (Auto) 10L, Monocytes (%) (Auto) 11, Eosinophils (%) (Auto) 14H, Basophils (%) (Auto) 0, Neutrophils # (Auto) 2.9, Lymphocytes # (Auto) 0.5L, Monocytes # (Auto) 0.5, Eosinophils # (Auto) 0.6H, Basophils # (Auto) 0.0, Immature Granulocyte # (Auto) 0.0, Sodium Level 134L, Potassium Level 2.9L, Chloride Level 96L, Carbon Dioxide Level 27, Anion Gap 11, Blood Urea Nitrogen < 2L, Creatinine 0.43L, Estimat Glomerular Filtration Rate > 60, BUN/Creatinine Ratio 5, Glucose Level 85, Calcium Level 7.4L, Magnesium Level 1.7 Microbiology 12/16/19 MRSA Screen - Final, Complete MRSA not isolated Assessment/Plan Assessment/Plan Assess & Plan/Chief Complaint S/P Oversew of bleeding gastro-duodenal artery VSS. Hgb 6.7 will transfuse [address] with contrast showed very small leak. Repeat CT on sunday to recheck leak. will continue npo except a few ice chips and continue NGT, will start TPN Pt told she must use IS and ambulate; will make sure RT sees her. Restart zosyn and start GROUP DYNAMICS INSTRUCTOR for pain control. Clinical Quality Measures DVT/VTE Risk/Contraindication: Risk Factor Score Per Nursin RFS Level Per Nursing on Admit: 2=Moderate BRANDON SANCHEZ DRYING ROOM ATTENDANT Dec 20, 2019 11:09
[2019-12-20] MEDS ORDERED: fentaNYL 1,250 MCG/NS 250 ML DRIP IV SCH ×2 (11:15)
[2019-12-20] MEDS ORDERED: fentaNYL INJECTION 1,000 MCG in NS (IVPB) 80 ML IV SCH ×2 (11:15→13:00)
[2019-12-20] MEDS ORDERED: PIPERACILLIN/TAZOBACTAM (BULK) 4.5 GM in NS (IVPB) 100 ML IV NR (12:00)
[2019-12-20 12:48] LABS: ALBUMIN 2.6 GM/DL (3.2-4.5); CHLORIDE 95 MMOL/L (98-107); POTASSIUM 3.4 MMOL/L (3.6-5.0); SODIUM 132 MMOL/L (135-145)
[2019-12-20 12:49] LABS: CALCIUM 7.4 MG/DL (8.5-10.1)
[2019-12-20 12:50] LABS: TRIGLYCERIDES 97 MG/DL (<150)
[2019-12-20 12:51] LABS: GLUCOSE 92 MG/DL (70-105); TOTAL PROTEIN 4.6 GM/DL (6.4-8.2)
[2019-12-20 12:52] LABS: BILIRUBIN,TOTAL 0.5 MG/DL (0.1-1.0); CARBON DIOXIDE 27 MMOL/L (21-32)
[2019-12-20 12:54] LABS: ALKALINE PHOSPHATASE 52 U/L (40-136); CREATININE SERUM 0.43 MG/DL (0.60-1.30); GFR ESTIMATED > 60; PHOSPHORUS 2.7 MG/DL (2.3-4.7)
[2019-12-20 12:55] LABS: BUN/CREATININE RATIO 5
[2019-12-20 12:57] LABS: ALANINE AMINOTRANSFERASE 11 U/L (0-55); MAGNESIUM 1.8 MG/DL (1.6-2.4)
--- NOTE | 2019-12-20 13:04 | NUR ---
TPN: Phos 2.7, correction prior to start of TPN, administer 15mm KPhos over 2 hours. At 1700, discontinue LR and start 0.9%NS at 90ml/hr and start TPN at 60ml/hr.
[2019-12-20 13:13] LABS: HEMOGLOBIN 7.1 g/dL (11.5-16.0)
[2019-12-20] MEDS ORDERED: POTASSIUM PHOSPHATE 15 MM/NS 250 ML IVPB IV ONE ×2 (13:45)
[2019-12-20 16:13] LABS: CHLORIDE 95 MMOL/L (98-107); POTASSIUM 3.6 MMOL/L (3.6-5.0); SODIUM 133 MMOL/L (135-145)
[2019-12-20 16:14] LABS: CALCIUM 7.4 MG/DL (8.5-10.1); GLUCOSE 88 MG/DL (70-105)
[2019-12-20 16:16] LABS: CARBON DIOXIDE 26 MMOL/L (21-32)
[2019-12-20 16:18] LABS: CREATININE SERUM 0.43 MG/DL (0.60-1.30); GFR ESTIMATED > 60
[2019-12-20 16:19] LABS: BUN/CREATININE RATIO 5
[2019-12-20] MEDS: NS IV 1000 ML 1,000 ML IV SCH (18:17)
[2019-12-20] MEDS: SODIUM CHLORIDE IV SCH ×10 (18:17)
[2019-12-20] MEDS: [UNRECOGNIZED DRUG - OTHER] IV SCH ×10 (18:17)
[2019-12-20] MEDS: POTASSIUM PHOSPHATE IV SCH ×10 (18:17)
[2019-12-20] MEDS: PARoxetine 20 MG (PAXIL) TAB PO SCH (20:46)
[2019-12-21] VITALS: BP 190/91
[2019-12-21] MEDS: PIPERACILLIN/TAZO 4.5 GM/NS 100 ML IV SCH ×6 (01:12→17:33)
[2019-12-21] MEDS: morphine INJ 4 MG/ML 1 ML (VIAL/SYRINGE) IVP PRN ×2 (01:12→04:25)
[2019-12-21] MEDS: NS IV 1000 ML 1,000 ML IV SCH ×3 (04:20→21:33)
[2019-12-21] MEDS: LACTATED RINGERS 1,000 ML IV SCH (04:20)
[2019-12-21 04:57] VITALS: BP 164/72
[2019-12-21 05:38] LABS: HEMOGLOBIN 7.8 g/dL (11.5-16.0)
[2019-12-21 05:56] LABS: BUN/CREATININE RATIO 8; CALCIUM 7.5 MG/DL (8.5-10.1); CARBON DIOXIDE 27 MMOL/L (21-32); CHLORIDE 97 MMOL/L (98-107); CREATININE SERUM 0.49 MG/DL (0.60-1.30); GFR ESTIMATED > 60; GLUCOSE 157 MG/DL (70-105); MAGNESIUM 1.8 MG/DL (1.6-2.4); POTASSIUM 3.2 MMOL/L (3.6-5.0); SODIUM 133 MMOL/L (135-145)
[2019-12-21] MEDS: MAGNESIUM 1 GM/100 ML IVPB 100 ML IV SCH (05:57)
[2019-12-21] MEDS: KCL 20 MEQ TAB (K-DUR) PO SCH (05:57)
[2019-12-21] MEDS: POTASSIUM CL 10MEQ/50ML IVPB 50 ML IV SCH ×8 (05:58→15:59)
[2019-12-21 08:00] VITALS: BP 158/84
[2019-12-21] MEDS: FLUCONAZOLE 200 MG/100 ML 50 ML, EMPTY IV BAG (PVC) 1 EA IV SCH ×2 (09:05)
[2019-12-21] MEDS: LOSARTAN 100 MG (COZAAR) TABLET PO SCH (09:05)
[2019-12-21] MEDS: PANTOPRAZOLE 40 MG (PROTONIX) VIAL IV SCH ×2 (09:05→20:43)
--- NOTE | 2019-12-21 11:22 | Progress Note ---
Subjective Date Seen by a Provider: Dec 21, 2019 Time Seen by a Provider: 10:30 Subjective/Events-last exam Patient seen with Dr. Segura. Patient reports still having lots of pain on the right side and into her back. She reports that it is sharp stabbing in nature. She denies any shortness of breath, difficulty breathing, or cough. She does report that when she takes a deep breathe that the pain is not as bad as it has been. Denies any nausea, vomiting, fever/chills. Objective Exam Vital Signs Date Time Temp Pulse Resp B/P (MAP) Pulse Ox O2 Delivery O2 Flow Rate FiO2 12/21/19 08:00 97 Nasal Cannula 1.00 12/21/19 04:57 37.0 95 20 164/72 (102) 91 Room Air 12/21/19 03:34 92 Room Air 12/21/19 00:00 37.4 98 20 190/91 (124) 90 Room Air 12/20/19 20:00 Room Air 12/20/19 19:54 37.4 95 20 169/93 (118) 90 Room Air 12/20/19 17:43 37.0 87 18 170/89 92 Room Air 12/20/19 15:35 37.0 85 18 148/84 93 Room Air 12/20/19 15:08 37.6 95 18 147/85 91 Room Air 12/20/19 12:00 36.8 89 18 152/87 (108) 90 Room Air I & O 12/21/19 07:00 Intake Total 2685 ml Output Total 7425 ml Balance -4740 ml Capillary Refill : Less Than 3 SecondsLess Than 3 Seconds General Appearance: No Apparent Distress, WD/WN Neck: Normal Inspection, Supple Respiratory: Normal Breath Sounds, No Accessory Muscle Use, No Respiratory Distress Cardiovascular: Regular Rate, Rhythm, No Edema Gastrointestinal: soft, tenderness (right side and right flank/back), other (Left side CARIDAD drain with SS drainage with minimal drainage in bulb) Extremity: Normal Inspection, Normal Range of Motion Neurologic/Psychiatric: Alert, Oriented x3 Skin: Normal Color, Warm/Dry, Other (Midline incision C/D/I with jimmy in place.) Results Lab Laboratory Tests 12/20/19 12:18: Hemoglobin 7.1L, Hematocrit 21L, Sodium Level 132L, Potassium Level 3.4L, Chloride Level 95L, Carbon Dioxide Level 27, Anion Gap 10, Blood Urea Nitrogen < 2L, Creatinine 0.43L, Estimat Glomerular Filtration Rate > 60, BUN/Creatinine Ratio 5, Glucose Level 92, Calcium Level 7.4L, Corrected Calcium 8.5, Phosphorus Level 2.7, Magnesium Level 1.8, Total Bilirubin 0.5, Aspartate Amino Transf (AST/SGOT) 13, Alanine Aminotransferase (ALT/SGPT) 11, Alkaline Phosphatase 52, Total Protein 4.6L, Albumin 2.6L, Prealbumin 5.7L, Triglycerides Level 97 12/20/19 13:24: Glucometer 100 12/20/19 15:08: Sodium Level 133L, Potassium Level 3.6, Chloride Level 95L, Carbon Dioxide Level 26, Anion Gap 12, Blood Urea Nitrogen < 2L, Creatinine 0.43L, Estimat Glomerular Filtration Rate > 60, BUN/Creatinine Ratio 5, Glucose Level 88, Calcium Level 7.4L 12/20/19 17:48: Glucometer 91 12/21/19 00:54: Glucometer 190H 12/21/19 05:19: Glucometer 169H 12/21/19 05:28: Hemoglobin 7.8L, Hematocrit 23L, Sodium Level 133L, Potassium Level 3.2L, Chloride Level 97L, Carbon Dioxide Level 27, Anion Gap 9, Blood Urea Nitrogen 4L , Creatinine 0.49L, Estimat Glomerular Filtration Rate > 60, BUN/Creatinine R atio 8, Glucose Level 157H, Calcium Level 7.5L, Magnesium Level 1.8 Microbiology 12/16/19 MRSA Screen - Final, Complete MRSA not isolated Assessment/Plan Assessment/Plan Assess & Plan/Chief Complaint S/P Oversew of bleeding gastro-duodenal artery VSS. Hgb 7.8, will continue to monitor CT with contrast showed very small leak. Repeat CT on sunday to recheck leak. will continue npo except a few ice chips and continue NGT, TPN Pt told she must use IS and ambulate; will make sure RT sees her. Continue zosyn and SAFE DEPOSIT CLERK for pain control, will start continuous SAFE DEPOSIT CLERK rate of 25 mcg/hr Clinical Quality Measures DVT/VTE Risk/Contraindication: Risk Factor Score Per Nursin RFS Level Per Nursing on Admit: 2=Moderate BRANDON SANCHEZ APPLICATION INTEGRATOR Dec 21, 2019 11:21
--- NOTE | 2019-12-21 11:48 | NUR ---
CHANGED SETTINGS ON [employer] SUPERINTENDENT POLICE TO 25 MCG CONTINUOUS ORDERED. CHANGE WITNESSED BY SENAIT SETHI
[2019-12-21 12:00] VITALS: BP 158/84
--- NOTE | 2019-12-21 12:17 | NUR ---
CALLED DR DEMARCO TO VERIFY H&H LAB ORDERED BID WILL BEGIN TOMORROW MORNING, NOT THIS EVENING.
[2019-12-21 12:27] LABS: CHLORIDE 99 MMOL/L (98-107); POTASSIUM 3.4 MMOL/L (3.6-5.0); SODIUM 134 MMOL/L (135-145)
[2019-12-21 12:28] LABS: CALCIUM 7.6 MG/DL (8.5-10.1)
[2019-12-21 12:29] LABS: GLUCOSE 142 MG/DL (70-105)
[2019-12-21 12:30] LABS: CARBON DIOXIDE 27 MMOL/L (21-32)
--- NOTE | 2019-12-21 12:31 | NUR ---
TPN PROTOCOL - Administer additional KCL 30mEq over 3 hours. Repeat BMP 2 hours after completion of potassium.
[2019-12-21 12:33] LABS: CREATININE SERUM 0.44 MG/DL (0.60-1.30); GFR ESTIMATED > 60
[2019-12-21 12:34] LABS: BUN/CREATININE RATIO 9
[2019-12-21 15:34] VITALS: BP 158/75
[2019-12-21] MEDS: POTASSIUM PHOSPHATE IV SCH ×10 (17:35)
[2019-12-21] MEDS: [UNRECOGNIZED DRUG - OTHER] IV SCH ×10 (17:35)
[2019-12-21] MEDS: SODIUM CHLORIDE IV SCH ×10 (17:35)
[2019-12-21 19:07] VITALS: BP 172/83
[2019-12-21] MEDS: PARoxetine 20 MG (PAXIL) TAB PO SCH (20:43)
[2019-12-22 00:56] VITALS: BP 155/77
[2019-12-22] MEDS: PIPERACILLIN/TAZO 4.5 GM/NS 100 ML IV SCH ×6 (02:07→18:11)
[2019-12-22 04:04] VITALS: BP 161/90
[2019-12-22 04:18] LABS: HEMOGLOBIN 8.1 g/dL (11.5-16.0)
[2019-12-22 04:28] LABS: CHLORIDE 101 MMOL/L (98-107); POTASSIUM 3.5 MMOL/L (3.6-5.0); SODIUM 135 MMOL/L (135-145)
[2019-12-22 04:29] LABS: CALCIUM 7.6 MG/DL (8.5-10.1)
[2019-12-22 04:30] LABS: GLUCOSE 134 MG/DL (70-105)
[2019-12-22 04:31] LABS: CARBON DIOXIDE 24 MMOL/L (21-32)
[2019-12-22 04:33] LABS: CREATININE SERUM 0.45 MG/DL (0.60-1.30); GFR ESTIMATED > 60
[2019-12-22 04:34] LABS: BUN/CREATININE RATIO 13
[2019-12-22 04:36] LABS: MAGNESIUM 1.8 MG/DL (1.6-2.4)
[2019-12-22] MEDS: fentaNYL INJECTION 1,000 MCG in NS (IVPB) 80 ML IV SCH (05:44)
[2019-12-22] MEDS: MAGNESIUM 1 GM/100 ML IVPB 100 ML IV SCH (06:08)
[2019-12-22] MEDS: KCL 20 MEQ TAB (K-DUR) PO SCH (06:09)
[2019-12-22] MEDS: POTASSIUM CL 10MEQ/50ML IVPB 50 ML IV SCH (06:20)
[2019-12-22] MEDS ORDERED: POTASSIUM CL 10MEQ/50ML IVPB 50 ML IV ONE (06:30)
[2019-12-22 08:00] VITALS: BP 172/77
[2019-12-22] MEDS: FLUCONAZOLE 200 MG/100 ML 50 ML, EMPTY IV BAG (PVC) 1 EA IV SCH ×2 (08:11)
[2019-12-22] MEDS: PANTOPRAZOLE 40 MG (PROTONIX) VIAL IV SCH ×2 (08:12→20:33)
[2019-12-22] MEDS: LOSARTAN 100 MG (COZAAR) TABLET PO SCH (08:12)
[2019-12-22] MEDS: NS IV 1000 ML 1,000 ML IV SCH (09:43)
--- NOTE | 2019-12-22 10:41 | Progress Note - Surgery ---
LINDA THAYER MED STUDENT 12/22/19 1041: Subjective Time Seen by a Provider: 07:20 Subjective/Events-last exam Pt fully alert and communicating this morning. Pt has no complaints at this t chiquita. R sided flank pain that started Sunday is improving, 1/10 at rest currently. Pt last passed stool Sunday, described as without blood. Pt passing gas yesterday. Pt denies abd pain, chest pain or SOB. CARIDAD drain continues to collect seriosanginous fluid. Abd incisional site without erythema, induration or pus. Review of Systems General: No Chills, No Night Sweats, No Fatigue Pulmonary: No Dyspnea, No Cough, No Pleuritic Chest Pain Cardiovascular: No: Chest Pain, Palpitations, Edema Gastrointestinal: Abdominal Pain (R sided flank pain; lateral ribs 7-10); No: Nausea, Vomiting, Diarrhea, Constipation, Melena, Hematochezia Objective Exam Vital Signs Date Time Temp Pulse Resp B/P (MAP) Pulse Ox O2 Delivery O2 Flow Rate FiO2 12/22/19 08:00 36.2 75 18 172/77 (108) 95 Room Air 12/22/19 08:00 97 Room Air 12/22/19 07:00 18 12/22/19 04:04 36.8 88 18 161/90 (113) 95 Room Air 12/22/19 00:56 37.0 93 20 155/77 (103) 92 Room Air 12/21/19 21:00 22 12/21/19 20:45 Room Air 12/21/19 19:07 36.5 83 20 172/83 (112) 97 Room Air 12/21/19 15:34 36.5 80 20 158/75 (102) 94 Room Air 12/21/19 12:00 37.0 79 18 158/84 (108) 93 Room Air 12/21/19 11:48 20 I & O 12/22/19 07:00 Intake Total 2970 ml Output Total 6080 ml Balance -3110 ml Capillary Refill : Less Than 3 SecondsLess Than 3 Seconds General Appearance: No Apparent Distress, WD/WN HEENT: Normal ENT Inspection, Pharynx Normal, Other (NGT present, with dark drainage) Neck: Full Range of Motion, Normal Inspection Respiratory: Lungs Clear, Normal Breath Sounds, No Accessory Muscle Use, No Respiratory Distress Cardiovascular: Regular Rate, Rhythm, No Edema, No Murmur, Normal Peripheral Pulses Peripheral Pulses: 2+ Radial Pulses (R), 2+ Radial Pulses (L) Gastrointestinal: normal bowel sounds, soft, no organomegaly, tenderness (right flank/back), other (Left side CARIDAD drain with SS drainage. Abdominal incision site without erythema or pus. ) Extremity: Normal Inspection, No Pedal Edema Neurologic/Psychiatric: Alert, Oriented x3, Normal Mood/Affect, hand worker II-XII Norm as Tested Skin: Normal Color, Warm/Dry, Other (Midline incision C/D/I with jimmy in place.) Lymphatic: No Adenopathy Results Lab Laboratory Tests 12/21/19 11:53: Glucometer 159H 12/21/19 12:05: Sodium Level 134L, Potassium Level 3.4L, Chloride Level 99, Carbon Dioxide Level 27, Anion Gap 8, Blood Urea Nitrogen 4L, Creatinine 0.44L, Estimat Glomerular Filtration Rate > 60, BUN/Creatinine Ratio 9, Glucose Level 142H, Calcium Level 7.6L 12/21/19 18:35: Glucometer 141H 12/22/19 00:24: Glucometer 166H 12/22/19 04:01: Hemoglobin 8.1L, Hematocrit 24L, Sodium Level 135, Potassium Level 3.5L, Chloride Level 101, Carbon Dioxide Level 24, Anion Gap 10, Blood Urea Nitrogen 6L, Creatinine 0.45L, Estimat Glomerular Filtration Rate > 60, BUN/Creatinine Ratio 13, Glucose Level 134H, Calcium Level 7.6L, Magnesium Level 1.8 Microbiology 12/16/19 MRSA Screen - Final, Complete MRSA not isolated Assessment/Plan Assessment/Plan Assessment/Plan Gastroduodenal A. Perforation: H&H remains steady the past couple days: H&H increased from 7.8 to 8.1 today. Continue to monitor BID for any acute changes, monitor BMs for new onset blood. Iron def anemia: due to gastroduodenal A. perforation and hx of duodenal ulcer bleeding. duodenal ulcer Repeat CT scan today. Pt had a small amount of contrast extravasion on 12/17 CT from anterior stomach-antrum region. Further plan depends on CT results today: if sight is healed and gone, consider removing NG tube and discharge for tomorrow. Clinical Quality Measures DVT/VTE Risk/Contraindication: Risk Factor Score Per Nursin RFS Level Per Nursing on Admit: 2=Moderate SELVIN GEORGES DO 12/22/19 1156: Subjective Time Seen by a Provider: 11:41 Subjective/Events-last exam Pt seen and examined, doing better today. Still wants to get NGT out. Review of Systems General: No Chills, No Night Sweats Pulmonary: No Dyspnea, No Cough Cardiovascular: No: Chest Pain, Palpitations Objective Exam General Appearance: No Apparent Distress, WD/WN Respiratory: Lungs Clear, No Accessory Muscle Use, No Respiratory Distress, Decreased Breath Sounds (bases) Cardiovascular: Regular Rate, Rhythm, No Murmur Gastrointestinal: non tender, soft, no organomegaly, tenderness (right flank/back), other (Left side CARIDAD drain with serous drainage. incision c/d/i) Assessment/Plan Assessment/Plan Assessment/Plan S/P Oversew bleeding gastroduodenal artery CT today shows no leak, ulcer appears smaller and free air is less. Will plan on starting clears and switching to PO pain meds. If tolerates diet and nothing in CARIDAD drain will d/c ngt tomorrow. Pt encouraged to ambulate and use IS. Supervisory-Addendum Brief Verification & Attestation Participated in pt care: history, MDM, physical Personally performed: exam, history, MDM Care discussed with: Medical Student Procedures: n/a Verification and Attestation of Medical Student E/M Service A medical student performed and documented this service. I then reviewed and verified all information documented by the medical student and made modifications to such information, when appropriate. I personally performed a physical exam, medical decision making and then discussed any differences between the notes and made revisions as necessary to create one note. Selvin Georges , 12/22/19 , 11:56 LINDA THAYER MED STUDENT Dec 22, 2019 10:41 SELVIN GEORGES DO Dec 22, 2019 11:56
[2019-12-22 10:54] LABS: PHOSPHORUS 3.1 MG/DL (2.3-4.7)
[2019-12-22] MEDS ORDERED: DIATRIZOATE MEGLUM/SODIUM 37% 120 ML (GASTROGRAFIN) PO ONE (11:15)
--- NOTE | 2019-12-22 11:35 | Diagnostic Imaging Report ---
PROCEDURE: CT abdomen without contrast. TECHNIQUE: Multiple contiguous axial images were obtained through the abdomen without the use of intravenous contrast. Auto Exposure Controls were utilized during the CT exam to meet ALARA standards for radiation dose reduction. INDICATION: Enteric leak Compared with study 12/18/2019. Only a few bubbles of mesenteric gas on follow-up are present, substantially decreased from prior. On follow-up the gas and contrast-containing tract extending ventrally from the level of the pylorus is barely perceptible on follow-up. There is a minimal curvilinear volume of contrast extravasating today and only a tiny pocket of air at that level. No evidence for outlet obstruction. There is no ileus. The kidneys unobstructed. There are small pleural effusions nonloculated with improvements in right greater than left dependent basilar atelectasis. IMPRESSION: Only a tiny amount of residual extravasation ventrally off the gastropyloric junction with decreased extraluminal air and no adverse interval development. Improvements in basilar atelectasis similar bibasilar effusions. Dictated by: Dictated on workstation # [id number]
[2019-12-22 11:45] VITALS: BP 171/80
--- NOTE | 2019-12-22 14:56 | NUR ---
CM/SS: Visited with pt as to plan for discharge and discussed home care services post discharge Plan: To be determined - pt is from home and will return there with likely home care services Summary: Pt reports feeling better today. Pt reports she may be able to go home in a few days. Discuss home care services. She would elect to use [facility] at time of discharge. She is pretty weak and is open to having some physical therapy in the hospital. The primary nurse SENAIT Carlos is notified of the request and will request order from physician. This worker will follow up.
--- NOTE | 2019-12-22 15:15 | NUR ---
Pastoral care visit.
--- NOTE | 2019-12-22 15:17 | Occupational Therapy Eval ---
OT Evaluation-General/PLF Medical Diagnosis Admission Date Dec 15, 2019 at 03:44 Medical Diagnosis: Hematemesis Onset Date: Dec 15, 2019 Therapy Diagnosis Therapy Diagnosis: Weakness Height/Weight Height (Feet): 5 Height (Inches): 7.00 Weight (Pounds): 182 Weight (Ounces): 0.0 Precautions Precautions/Isolations: Fall Prevention, Standard Precautions Weight Bear Status Weight Bearing Restriction: Weight Bearing/Tolerated Referral Physician: Dr. Ahuja Referral Reason: Activity Tolerance, Self Care, Evaluation/Treatment, Strengthening/ROM Medical History Additional Medical History Hysterectomy, hypotension, anemia Current History Pt. came to ER via EMS s/p vomiting blood. Reviewed History: Yes Social History Home: Single Level Current Living Status: Spouse Entry Into Home: Stairs With Railing Steps Into Home: 5 ADL-Prior Level of Function SCALE: Activities may be completed with or without assistive devices. 4-Kblshrbqwi-hndxgox completes the activity by him/herself with no assistance from a helper. 5-Set-up or Clean-up Assistance-helper sets up or cleans up; patient completes activity. [place] assists only prior to or following the activity. 4-Supervision or Touching Assistance-helper provides verbal cues and/or touching/steadying and/or contact guard assistance as patient completes activity. Assistance may be provided throughout the activity or intermittently. 3-Partial/Moderate Assistance-helper does LESS THAN HALF the effort. [place] lifts, holds or supports trunk or limbs, but provides less than half the effort. 2-Substantial/Maximal Assistance-helper does MORE THAN HALF the effort. [place] lifts or holds trunk or limbs and provides more than half the effort. 3-Zimbcgmlx-rbheay does ALL the effort. Patient does none of the effort to complete the activity. Or, the assistance of 2 or more helpers is required for the patient to complete the activity. If activity was not attempted, code reason: 7-Patient Refused. 9-Not Applicable-not attempted and the patient did not perform the activity before the current illness, exacerbation or injury. 10-Not Attempted due to Environmental Limitations-(lack of equipment, weather restraints, etc.). 88-Not Attempted due to Medical Conditions or Safety Concerns. ADL PLOF Comments Pt. was independent with daily tasks. Self Care: Independent Functional Cognition: Independent DME/Equipment: Bath Chair DME/Equipment Comments Pt. has walker that belonged to her spouse. 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 Drive Self: Yes OT Current Status Subjective No pain reported. Appearance Pt. in bed. Alert and oriented. Motivated to increase independence and return home. Mental Status/Objective Patient Orientation: Person, Place, Time, Situation Attachments: Magallanes Catheter, IV Current Upper Extremity ROM WFL ADL-Treatment Oral Hygiene (QC): 5 (Set up seated in chair.) OT/PT received order. Co-treatment performed due to level of skilled assistance needed with multiple lines and fatigue. PT focuses on mobility and transfers while OT focuses on ADL skills. Pt. transfers supine-sit with CGA. Ambulates in arriaga with CGA and walker, (see PT note for distance), with follow of another person for IV and lines. Pt. ambulates back to room and transfers to chair. Pt. able to brush hair for approximately 5 minutes, with ability to hold arms up. No ROM issues noted. Pt. given washcloth and washes face. Set up with items to brush teeth. Pt. verbalizes that she has had BMs, but it feels like her abdomen is "pulling" when she twists to cleanse herself. Pt. educated on toilet tongs and OT will bring her some at next session. Pt. still has catheter, NG tube, and multiple IVs. States that she would like to shower when some of these things are discharged. All needs met up in chair. Education OT Patient Education: Correct positioning, Modified ADL techniques, Progress toward Goal/Update tx plan, Purpose of tx/functional activities, Reviewed precautions, Rehab process, Transfer techniques Teaching Recipient: Patient Teaching Methods: Demonstration, Discussion Response to Teaching: Verbalize Understanding, Return Demonstration OT Grinding Supervisor Goals Grinding Supervisor Goals Time Frame: Dec 29, 2019 Eating (QC): 6 Oral Hygiene (QC): 6 Toileting Hygiene (QC): 6 Shower/Bathe Self (QC): 4 Upper Body Dressing (QC): 6 Lower Body Dressing (QC): 6 On/Off Footwear (QC): 6 Additional Goals: 1-Demonstrate ADL Tasks, 2-Verbalize Understanding, 3-Impr oveStrength/Hesham 1=Demonstrate adherence to instructed precautions during ADL tasks. 2=Patient will verbalize/demonstrate understanding of assistive devices/modifications for ADL. 3=Patient will improve strength/tolerance for activity to enable patient to perform ADL's. Goals set to be with adaptive equipment as needed. OT Education/Plan Problem List/Assessment Assessment: Decreased Activ Tolerance, Impaired I ADL's, Impaired Self-Care Skills Discharge Recommendations Plan/Recommendations: Continue POC Therapy Discharge Recommendati: Home & Family Treatment Plan/Plan of Care Treatment,Training & Education: Yes Patient would benefit from OT for education, treatment and training to promote independence in ADL's, mobility, safety and/or upper extremity function for ADL's. Plan of Care: ADL Retraining, Functional Mobility Treatment Duration: Dec 29, 2019 Frequency: 5 times per week Estimated Hrs Per Day: .5 hour per day Agreement: Yes Rehab Potential: Good Time/GCodes Start Time: 14:30 Stop Time: 14:55 Total Time Billed (hr/min): 25 Billed Treatment Time 1, EVM x 10minutes, ADL x 15minutes Partial co-treatment with PT. Please see above note for designated roles. CLIFTON YODER OT Dec 22, 2019 15:17
--- NOTE | 2019-12-22 15:39 | Physical Therapy Evaluation ---
PT Evaluation-General Medical Diagnosis Admission Date Dec 15, 2019 at 03:44 Medical Diagnosis: Hematemesis Onset Date: Dec 15, 2019 Therapy Diagnosis Therapy Diagnosis: debility Height/Weight Height (Feet): 5 Height (Inches): 7.00 Weight (Pounds): 182 Weight (Ounces): 0.0 Precautions Precautions/Isolations: Fall Prevention, Standard Precautions Weight Bear Status Right Lower Extremity: Right Full Weight Bearing Left Lower Extremity: Left Weight Bearing/Tolerated Referral Physician: Dr. Ahuja Reason for Referral: Evaluation/Treatment Medical History Pertinent Medical History: HTN Additional Medical History IBS Current History EMS secondary to vomiting blood Reviewed History: Yes Social History Home: Single Level Current Living Status: Spouse Entry Into Home: Stairs With Railing PT Steps Into Home: 5 Prior Prior Level of Function SCALE: Activities may be completed with or without assistive devices. 3-Djyhfndsaj-shrxgvs completes the activity by him/herself with no assistance from a helper. 5-Set-up or Clean-up Assistance-helper sets up or cleans up; patient completes activity. [place] assists only prior to or following the activity. 4-Supervision or Touching Assistance-helper provides verbal cues and/or touching/steadying and/or contact guard assistance as patient completes activity . Assistance may be provided throughout the activity or intermittently. 3-Partial/Moderate Assistance-helper does LESS THAN HALF the effort. [place] lifts, holds or supports trunk or limbs, but provides less than half the effort. 2-Substantial/Maximal Assistance-helper does MORE THAN HALF the effort. [place] lifts or holds trunk or limbs and provides more than half the effort. 3-Hijfelxmy-ulopxd does ALL the effort. Patient does none of the effort to complete the activity. Or, the assistance of 2 or more helpers is required for the patient to complete the activity. If activity was not attempted, code reason: 7-Patient Refused. 9-Not Applicable-not attempted and the patient did not perform the activity before the current illness, exacerbation or injury. 10-Not Attempted due to Environmental Limitations-(lack of equipment, weather restraints, etc.). 88-Not Attempted due to Medical Conditions or Safety Concerns. Bed Mobility: 6 Transfers (B,C,W/C): 6 Gait: 6 Stairs: 6 Indoor Mobility (Ambulation): Independent Stairs: Independent Prior Devices Use: None PT Evaluation-Current Subjective Patient is very agreeable to participate with therapy. Pain Numeric Pain Scale: 5-Moderate Pain Location: Medial Location Body Site: Abdomen Pain Description: Acute Objective Patient Orientation: Normal For Age Attachments: NG Tube, Magallanes Catheter, IV ROM/Strength ROM Lower Extremities bilateral LE WFL Strength Lower Extremities 4/5 grossly bilateral LE Integumentary/Posture Bowel Incontinence: No Bladder Incontinence: No Posture WFL Neuromuscular (Tone, Coordination, Reflexes) grossly intact Sensory Vision: Wears Glasses Hearing: Functional Transfers Roll Left to Right (QC): 5 Sit to Lying (QC): 5 Lying to Sitting/Side of Bed(Q: 5 Sit to Stand (QC): 5 Chair/Wns-lr-Cfjsz Xfer(QC): 5 Gait Does the Patient Walk?: Yes Mode of Locomotion: Walk Anticipated Mode of Locomotion: Walk Walk 10 feet (QC): 4 Walk 50 ft with 2 Turns(QC): 4 Walk 150 ft (QC): 4 Gait Assistive Device: FWW Balance Sitting Static: Normal Sitting Dynamic: Normal Standing Static: Normal Standing Dynamic: Normal Treatment OT/PT received order. Co-treatment performed due to level of skilled assistance needed with multiple lines and fatigue. PT focuses on mobility and transfers while OT focuses on ADL skills. Pt. transfers supine-sit with CGA. Ambulates in arriaga with CGA and walker, (see PT note for distance), with follow of another person for IV and lines. Pt. ambulates back to room and transfers to chair. . Pt. still has catheter, NG tube, and multiple IVs. States that she would like to shower when some of these things are discharged. All needs met up in chair. Assessment/Needs 64 y.o. female, will be benefit from short term skilled PT to address functional strength and mobility to ensure safe return to home with spouse and home care. Rehab Potential: Fair PT Short Term Goals Short Term Goals Time Frame: Dec 27, 2019 Roll Left & Right: 6 Sit to lyin Lying to sitting on side of be: 6 Sit to stand: 6 Chair/yal-ub-bwqzo transfer: 6 Toilet transfer: 6 Car transfer: 6 Walk 10 feet: 6 Walk 50 feet with two turns: 6 Walk 150 feet: 6 1 step (curb): 6 4 steps: 6 PT Plan Treatment/Plan Treatment Plan: Continue Plan of Care Treatment Plan: Bed Mobility, Education, Functional Activity Hesham, Functional Strength, Gait, Safety, Therapeutic Exercise, Transfers Treatment Duration: Dec 27, 2019 Frequency: 5 times per week Estimated Hrs Per Day: .25 hour per day Patient and/or Family Agrees t: Yes Discharge Recommendations Therapy Discharge Recommendati: Home & Family Time/GCodes Time In: 1430 Time Out: 1445 Total Billed Treatment Time: 15 Total Billed Treatment 1 visit EVLowC 15 min FELICE ZEPEDA PT Dec 22, 2019 15:38
[2019-12-22 15:43] VITALS: BP 167/81
[2019-12-22 19:35] VITALS: BP 164/74
[2019-12-22] MEDS: PARoxetine 20 MG (PAXIL) TAB PO SCH (20:33)
[2019-12-23] VITALS: BP 171/92
[2019-12-23] MEDS: NS IV 1000 ML 1,000 ML IV SCH ×2 (01:17→13:37)
[2019-12-23] MEDS: PIPERACILLIN/TAZO 4.5 GM/NS 100 ML IV SCH ×6 (01:17→17:50)
[2019-12-23 03:17] LABS: CHLORIDE 103 MMOL/L (98-107); POTASSIUM 3.3 MMOL/L (3.6-5.0); SODIUM 136 MMOL/L (135-145)
[2019-12-23 03:18] LABS: CALCIUM 8.2 MG/DL (8.5-10.1)
[2019-12-23 03:19] LABS: GLUCOSE 99 MG/DL (70-105)
[2019-12-23 03:20] LABS: CARBON DIOXIDE 24 MMOL/L (21-32)
[2019-12-23 03:23] LABS: BUN/CREATININE RATIO 10; CREATININE SERUM 0.48 MG/DL (0.60-1.30); GFR ESTIMATED > 60
[2019-12-23 03:30] LABS: MAGNESIUM 1.9 MG/DL (1.6-2.4)
[2019-12-23] MEDS: fentaNYL INJECTION 1,000 MCG in NS (IVPB) 80 ML IV SCH (03:57)
--- NOTE | 2019-12-23 03:57 | NUR ---
Patients DEVICE ENGINEER pump reservoir changed. 15cc of Fentanyl from previous bag wasted with Charu Espana RN.
[2019-12-23 04:00] VITALS: BP 146/77
[2019-12-23] MEDS: KCL 20 MEQ TAB (K-DUR) PO SCH ×3 (05:16→07:59)
[2019-12-23] MEDS: POTASSIUM CL 10MEQ/50ML IVPB 50 ML IV SCH (05:18)
[2019-12-23] MEDS: MAGNESIUM 1 GM/100 ML IVPB 100 ML IV SCH (05:18)
[2019-12-23] MEDS: LOSARTAN 100 MG (COZAAR) TABLET PO SCH (08:00)
[2019-12-23] MEDS: PANTOPRAZOLE 40 MG (PROTONIX) VIAL IV SCH ×2 (08:00→20:04)
[2019-12-23] MEDS: FLUCONAZOLE 200 MG/100 ML 50 ML, EMPTY IV BAG (PVC) 1 EA IV SCH ×2 (08:01)
--- NOTE | 2019-12-23 08:32 | Progress Note - Surgery ---
LINDA THAYER MED STUDENT 12/23/19 0832: Subjective Time Seen by a Provider: 07:00 Subjective/Events-last exam pt continues to improve. pt handeling liquid diet well and has no main compla ints at this time. Denies any postprandial pain. Pt passed n/l stool this morning. R sided flank pain has resolved. Pt still hasnt tried PO pain medication yet. Pt walked 400ft with PT yesterday without dyspnea or lightheadedness. CARIDAD drain showed 20-25cc of serous fluid. Abdominal incision remains c/d/i. Pt denies any abd pain, chest pain, nausea or vomiting. Review of Systems General: No Night Sweats, No Fatigue HEENT: No Dysphasia, No Sore Throat Pulmonary: No Dyspnea, No Cough, No Pleuritic Chest Pain Cardiovascular: No: Chest Pain, Palpitations Gastrointestinal: Diarrhea; No: Nausea, Vomiting, Abdominal Pain, Constipation, Melena, Hematochezia Objective Exam Vital Signs Date Time Temp Pulse Resp B/P (MAP) Pulse Ox O2 Delivery O2 Flow Rate FiO2 12/23/19 07:00 18 12/23/19 04:00 37.4 86 18 146/77 (100) 94 Room Air 12/23/19 00:00 36.8 95 18 171/92 (118) 91 Room Air 12/22/19 21:00 20 12/22/19 20:33 Room Air 12/22/19 19:35 36.2 90 22 164/74 (104) 95 Room Air 12/22/19 18:13 Room Air 12/22/19 15:43 36.6 87 20 167/81 (109) 97 Room Air 12/22/19 11:45 36.2 77 20 171/80 (110) 96 Room Air 12/22/19 10:38 95 Room Air I & O 12/23/19 07:00 Intake Total 3010 ml Output Total 3705 ml Balance -695 ml Capillary Refill : Less Than 3 SecondsLess Than 3 Seconds General Appearance: No Apparent Distress, WD/WN HEENT: Normal ENT Inspection, Pharynx Normal, Other (NGT present, with dark drainage) Neck: Full Range of Motion, Normal Inspection Respiratory: Lungs Clear, No Accessory Muscle Use, No Respiratory Distress, Decreased Breath Sounds (bases) Cardiovascular: Regular Rate, Rhythm, No Gallop, No Murmur, Normal Peripheral Pulses Peripheral Pulses: 2+ Radial Pulses (R), 2+ Radial Pulses (L) Gastrointestinal: non tender, soft, no organomegaly, other (Left side CARIDAD drain with serous drainage. incision c/d/i) Extremity: Normal Inspection, No Pedal Edema Neurologic/Psychiatric: Alert, Oriented x3, Normal Mood/Affect, inventory associate and driver II-XII Norm as Tested Skin: Normal Color, Warm/Dry, Other (Midline incision C/D/I with jimmy in place.) Lymphatic: No Adenopathy Results Lab Laboratory Tests 12/22/19 12:04: Glucometer 131H 12/22/19 17:46: Glucometer 100 12/22/19 23:51: Glucometer 112H 12/23/19 02:41: Sodium Level 136, Potassium Level 3.3L, Chloride Level 103, Carbon Dioxide Level 24, Anion Gap 9, Blood Urea Nitrogen 5L, Creatinine 0.48L, Estimat Glomerular Filtration Rate > 60, BUN/Creatinine Ratio 10, Glucose Level 99, Calcium Level 8.2L, Magnesium Level 1.9 12/23/19 05:22: Glucometer 91 Microbiology 12/16/19 MRSA Screen - Final, Complete MRSA not isolated Assessment/Plan Assessment/Plan Assessment/Plan Gastroduodenal A. Perforation: H&H remains steady and improved as of yesterday: H&H increased from 7.8 to 8.1 as of yesterdays CBC results. Monitor BMs for new onset blood. Consider repeat CBC today or tomorrow before discharge. 12/21 CT scan improved compared to 12/17 without continued extravasion of contrast and showed decreased intraperitoneal air. Iron def anemia: due to gastroduodenal A. perforation and hx of duodenal ulcer bleeding. duodenal ulcer: resolved. Hypokalemia: 3.3 on 02:41 BMP this morning. Potassium was given. Consider removing pts NG tube today and switching diet to softs or solid. Start PO pain medication. D/C salazar catheter. Per SS pt would benefit from Home Care Services. Clinical Quality Measures DVT/VTE Risk/Contraindication: Risk Factor Score Per Nursin RFS Level Per Nursing on Admit: 2=Moderate SELVIN GEORGES DO 12/23/19 1155: Subjective Time Seen by a Provider: 11:44 Subjective/Events-last exam Pt seen and examined, no new complaints. Pain controlled with IV meds. She tolerated clears yesterday with no change in CARIDAD. Review of Systems General: No Night Sweats Pulmonary: No Dyspnea, No Cough Cardiovascular: No: Chest Pain, Palpitations Gastrointestinal: Abdominal Pain, Diarrhea; No: Nausea, Vomiting Objective Exam General Appearance: No Apparent Distress, WD/WN Respiratory: Lungs Clear, No Accessory Muscle Use, No Respiratory Distress, Decreased Breath Sounds (bases) Cardiovascular: Regular Rate, Rhythm, No Murmur Gastrointestinal: soft, no organomegaly, tenderness (at incision) Assessment/Plan Assessment/Plan Assessment/Plan S/P [place] of bleeding Gastroduodenal artery D/C NGT, D/C salazar, stop FINISHED CLOTH CHECKER and switch to Oral Ultram and Tylenol. Increase to soft diet, encouraged to ambulate and use IS. Supervisory-Addendum Brief Verification & Attestation Participated in pt care: history, MDM, physical Personally performed: history, MDM Care discussed with: Medical Student Procedures: n/a Verification and Attestation of Medical Student E/M Service A medical student performed and documented this service. I then reviewed and verified all information documented by the medical student and made modifications to such information, when appropriate. I personally performed a physical exam, medical decision making and then discussed any differences between the notes and made revisions as necessary to create one note. Selvin Georges , 12/23/19 , 11:54 LINDA THAYER MED STUDENT Dec 23, 2019 08:32 SELVIN GEORGES DO Dec 23, 2019 11:55
[2019-12-23 08:45] VITALS: BP 178/78
--- NOTE | 2019-12-23 09:30 | Physical Therapy Daily Note ---
PT Daily Note-Current Subjective Patient reports she has been up with nursing staff in [facility]. Agrees to PT. Mental Status Patient Orientation: Normal For Age Attachments: NG Tube, Magallanes Catheter, IV Transfers SCALE: Activities may be completed with or without assistive devices. 4-Vwyvptndwk-bghnlog completes the activity by him/herself with no assistance from a helper. 5-Set-up or Clean-up Assistance-helper sets up or cleans up; patient completes activity. [place] assists only prior to or following the activity. 4-Supervision or Touching Assistance-helper provides verbal cues and/or touching/steadying and/or contact guard assistance as patient completes activity. Assistance may be provided throughout the activity or intermittently. 3-Partial/Moderate Assistance-helper does LESS THAN HALF the effort. [place] lifts, holds or supports trunk or limbs, but provides less than half the effort. 2-Substantial/Maximal Assistance-helper does MORE THAN HALF the effort. [place] lifts or holds trunk or limbs and provides more than half the effort. 3-Bnsokcyft-wjvijp does ALL the effort. Patient does none of the effort to complete the activity. Or, the assistance of 2 or more helpers is required for the patient to complete the activity. If activity was not attempted, code reason: 7-Patient Refused. 9-Not Applicable-not attempted and the patient did not perform the activity before the current illness, exacerbation or injury. 10-Not Attempted due to Environmental Limitations-(lack of equipment, weather restraints, etc.). 88-Not Attempted due to Medical Conditions or Safety Concerns. Roll Left & Right (QC): 6 Lying to Sitting/Side of Bed(Q: 6 Sit to Stand (QC): 6 Chair/Rlb-tq-Cykuu Xfer(QC): 6 Toilet Transfer (QC): 6 Patient transferred to restroom and toileted independently and was able to cleanse self independent after BM with AD Weight Bearing Right Lower Extremity: Right Full Weight Bearing Left Lower Extremity: Left Weight Bearing/Tolerated Gait Training Does the Patient Walk?: Yes Distance: 500' Walk 10 feet (QC): 6 Walk 50 ft with 2 Turns(QC): 6 Walk 150 ft (QC): 6 Gait Assistive Device: FWW FWW for abdominal comfort. Safe and functional gait sequence Exercises Seated Therapy Exercises: Ankle pumps, Long arc quads Assessment Patient is up in recliner with needs met. PT to have patient perform steps in a.m. tomorrow prior to possible dismissal to home (unable to perform on this date due to IV/NARROW GAUGE BRAKEMAN. PT Short Term Goals Short Term Goals Time Frame: Dec 27, 2019 Roll Left & Right: 6 Sit to lyin Lying to sitting on side of be: 6 Sit to stand: 6 Chair/oan-br-zzvpi transfer: 6 Toilet transfer: 6 Car transfer: 6 Walk 10 feet: 6 Walk 50 feet with two turns: 6 Walk 150 feet: 6 1 step (curb): 6 4 steps: 6 PT Plan Treatment/Plan Treatment Plan: Continue Plan of Care Treatment Plan: Bed Mobility, Education, Functional Activity Hesham, Functional Strength, Gait, Safety, Therapeutic Exercise, Transfers Treatment Duration: Dec 27, 2019 Frequency: 5 times per week Estimated Hrs Per Day: .25 hour per day Patient and/or Family Agrees t: Yes Time/GCodes Time In: 830 Time Out: 857 Total Billed Treatment Time: 27 Total Billed Treatment 1 visit FA x 2 27 min FELICE ZEPEDA PT Dec 23, 2019 09:30
--- NOTE | 2019-12-23 09:49 | Occupational Ther Daily Note ---
OT Current Status-Daily Note Subjective Pt seated in recliner, agreeable to OT tx. Pt declined showering today stating she is hoping to get some of her lines are discharged. Pt hopes to return home tomorrow. ADL-Treatment Therapy Code Descriptions/Definitions Functional [place] Measure: 0=Not Assessed/NA 4=Minimal Assistance 1=Total Assistance 5=Supervision or Setup 2=Maximal Assistance 6=Modified [place] 3=Moderate Assistance 7=Complete IndependenceSCALE: Activities may be completed with or without assistive devices. 6-Zogqapawjv-cuacqcq completes the activity by him/herself with no assistance from a helper. 5-Set-up or Clean-up Assistance-helper sets up or cleans up; patient completes activity. [place] assists only prior to or following the activity. 4-Supervision or Touching Assistance-helper provides verbal cues and/or touching/steadying and/or contact guard assistance as patient completes activity. Assistance may be provided throughout the activity or intermittently. 3-Partial/Moderate Assistance-helper does LESS THAN HALF the effort. [place] lifts, holds or supports trunk or limbs, but provides less than half the effort. 2-Substantial/Maximal Assistance-helper does MORE THAN HALF the effort. [place] lifts or holds trunk or limbs and provides more than half the effort. 1-Uovdvznid-ojqbvl does ALL the effort. Patient does none of the effort to c omplete the activity. Or, the assistance of 2 or more helpers is required for the patient to complete the activity. If activity was not attempted, code reason: 7-Patient Refused. 9-Not Applicable-not attempted and the patient did not perform the activity before the current illness, exacerbation or injury. 10-Not Attempted due to Environmental Limitations-(lack of equipment, weather restraints, etc.). 88-Not Attempted due to Medical Conditions or Safety Concerns. Eating (QC): 6 (Pt independent with liquid diet) Shower/Bathe Self (QC): 7 Toileting Hygiene (QC): 6 (Per pt and PT report, pt independent with toileting, able to cleanse self after BM) Toilet Transfer (QC): 6 (Per PT and pt report, pt able to complete toilet transfer independently with AD) Other Treatment Pt seated in recliner, agreeable to OT Tx. Pt reports she was able to cleanse self after BM independently. OT showed pt toilet tongs, educating her on the purpose of them and how to use them. Pt indicates she is now able to reach and does not require toilet tongs. Pt indicates she is hoping to discharge tomorrow and does not have any concerns with completing ADLS upon returning home, al though she has not completed showering and declined at this time. In order to increase BUE strength and functional endurance, pt educated on UE exercises with moderate resistance red theraband with HEP given to pt. OT demo'd each exercise, then pt able to return demo and complete x10 reps BUEs, with rest breaks as needed. Post OT tx, pt seated in recliner, call light in reach and all needs met. Education OT Patient Education: Correct positioning, Energy conservation, Exercise program, Home exercise program, Modified ADL techniques, Progress toward Goal/Update tx plan, Purpose of tx/functional activities Teaching Recipient: Patient Teaching Methods: Discussion Response to Teaching: Verbalize Understanding OT Marriage And Family Social Worker Goals Marriage And Family Social Worker Goals Time Frame: Dec 29, 2019 Eating (QC): 6 Oral Hygiene (QC): 6 Toileting Hygiene (QC): 6 Shower/Bathe Self (QC): 4 Upper Body Dressing (QC): 6 Lower Body Dressing (QC): 6 On/Off Footwear (QC): 6 Additional Goals: 1-Demonstrate ADL Tasks, 2-Verbalize Understanding, 3- ImproveStrength/[place] 1=Demonstrate adherence to instructed precautions during ADL tasks. 2=Patient will verbalize/demonstrate understanding of assistive devices/modifications for ADL. 3=Patient will improve strength/tolerance for activity to enable patient to perform ADL's. OT Education/Plan Problem List/Assessment Assessment: Decreased Activ Tolerance, Decreased UE Strength, Impaired I ADL's, Impaired Self-Care Skills Discharge Recommendations Plan/Recommendations: Continue POC Treatment Plan/Plan of Care Patient would benefit from OT for education, treatment and training to promote independence in ADL's, mobility, safety and/or upper extremity function for ADL's. Plan of Care: ADL Retraining, Functional Mobility Treatment Duration: Dec 29, 2019 Frequency: 5 times per week Estimated Hrs Per Day: .5 hour per day Agreement: Yes Rehab Potential: Fair Time/GCodes Start Time: 09:15 Stop Time: 09:33 Total Time Billed (hr/min): 18 Billed Treatment Time 1, EX JOSE PENA OT Dec 23, 2019 09:49
[2019-12-23 11:41] VITALS: BP 152/70
--- NOTE | 2019-12-23 13:27 | NUR ---
"RD ASSESSMENT PMHx: HTN; irritable bowel PT INTERACTION: Pt was awake and pleasant during nutrition assessment for LOS. Pt states current appetite is okay. Note avg PO intake 42% x1d, per chart review. Pt states following a regular diet at home, and has no issues with chewing/swallowing food. Pt states recent issues with nausea and vomiting. Pt states chronic issues with constipation and diarrhea, as she has irritable bowel. Note last BM was 12/22 and pt not currently on bowel regimen per chart review. Pt states no recent wt changes. Note unable to determine recent wt hx, per chart review. Pt states she had dietary questions on appropriate foods. ABNORMAL NUTRITION-RELATED LAB VALUES LOW: K 3.3; BUN 5; cr 0.48; Ca 8.3 HIGH: Est. kcal needs: 1425 kcal | 15 kcal/kg Est. Pro needs: 76 g Pro | 0.8 g Pro/kg PES STATEMENT: Inadequate oral intake (NI-2.1) related to loss of appetite | nausea | vomiting as evidenced by pt interview | avg PO intake 42% x1d INTERVENTION: Continue with current diet order of DYS2 Mechanically Altered diet. Pt may benefit from nutrition supplementation if PO intake declines. Encouraged pt to eat when able. Pt asked questions on appropriate foods. Her doctor had told her to avoid spicy and citrus foods. Provided pt with a list of appropriate foods. Pt verbalized understanding of information provided. Will continue to follow and reassess as pt needs, intake, and status change. Flori Lopez, MS RD LD"
[2019-12-23] MEDS: ACETAMINOPHEN 500 MG TAB (TYLENOL) PO SCH ×2 (13:36→20:04)
--- NOTE | 2019-12-23 15:31 | NUR ---
Fentanyl grain unloader machine discontinued at this time. 70mL of fentanyl wasted. Witnessed by Sara Spencer RN.
[2019-12-23 17:05] VITALS: BP 165/81
[2019-12-23] MEDS: PARoxetine 20 MG (PAXIL) TAB PO SCH (20:04)
[2019-12-23 21:09] VITALS: BP 177/86
[2019-12-24 00:51] VITALS: BP 175/74
[2019-12-24] MEDS: NS IV 1000 ML 1,000 ML IV SCH ×2 (01:24→10:17)
[2019-12-24] MEDS: PIPERACILLIN/TAZO 4.5 GM/NS 100 ML IV SCH ×4 (01:26→10:17)
[2019-12-24 04:00] VITALS: BP 181/84
[2019-12-24] MEDS: ACETAMINOPHEN 500 MG TAB (TYLENOL) PO SCH ×2 (04:34→11:40)
[2019-12-24 05:46] LABS: BASOPHILS % (AUTO) 1 % (0-10); EOSINOPHILS # (AUTO) 0.5 10^3/uL (0.0-0.3); EOSINOPHILS % (AUTO) 14 % (0-10); HEMATOCRIT 23 % (35-52); HEMOGLOBIN 7.6 g/dL (11.5-16.0); LYMPHOCYTES # (AUTO) 0.7 10^3/uL (1.0-4.0); LYMPHOCYTES % (AUTO) 20 % (12-44); MEAN CORPUSCULAR HEMOGLOBIN 30 pg (25-34); MEAN CORPUSCULAR HGB CONC 33 g/dL (32-36); MEAN CORPUSCULAR VOLUME 92 fL (80-99); MEAN PLATELET VOLUME 9.4 fL (9.0-12.2); MONOCYTES # (AUTO) 0.5 10^3/uL (0.0-1.0); MONOCYTES % (AUTO) 12 % (0-12); NEUTROPHILS % (AUTO) 52 % (42-75); PLATELET COUNT 414 10^3/uL (130-400); WHITE BLOOD COUNT 3.7 10^3/uL (4.3-11.0)
[2019-12-24 05:56] LABS: CHLORIDE 105 MMOL/L (98-107); POTASSIUM 3.5 MMOL/L (3.6-5.0); SODIUM 137 MMOL/L (135-145)
[2019-12-24 05:57] LABS: CALCIUM 7.9 MG/DL (8.5-10.1); GLUCOSE 90 MG/DL (70-105)
[2019-12-24 05:59] LABS: CARBON DIOXIDE 23 MMOL/L (21-32)
[2019-12-24 06:01] LABS: CREATININE SERUM 0.49 MG/DL (0.60-1.30); GFR ESTIMATED > 60
[2019-12-24 06:02] LABS: BUN/CREATININE RATIO 6
[2019-12-24 06:04] LABS: MAGNESIUM 1.9 MG/DL (1.6-2.4)
[2019-12-24] MEDS: POTASSIUM CL 10MEQ/50ML IVPB 50 ML IV SCH (06:09)
[2019-12-24] MEDS: KCL 20 MEQ TAB (K-DUR) PO SCH (06:10)
[2019-12-24] MEDS: MAGNESIUM 1 GM/100 ML IVPB 100 ML IV SCH (06:13)
--- NOTE | 2019-12-24 07:57 | Progress Note - Surgery ---
LINDA THAYER MED STUDENT 12/24/19 0757: Subjective Time Seen by a Provider: 07:30 Subjective/Events-last exam Pt has no complaints at this time. Pts NG tube and salazar cath were discontinued yesterday without issue: pt ambulates well to bathroom without pain with urination and without dyspnea on exertion. Pt last BM was yesterday and without blood or melena. Pt ate some softs yesterday and denies any post-prandial pain, nausea, vomiting or dysphagia. Pt admits she didn't eat much yesterday because she didn't find the meals appetizing. Pt tolerating oral pain medication. Pt CARIDAD drain shows serous drainage. Abd incision site c/d/i, pt denies abd pain or chest pain. Review of Systems General: No Chills, No Night Sweats, No Fatigue HEENT: No Dysphasia, No Sore Throat Pulmonary: No Dyspnea, No Cough, No Pleuritic Chest Pain Cardiovascular: No: Chest Pain, Palpitations Gastrointestinal: Diarrhea; No: Vomiting, Abdominal Pain, Constipation, Melena, Hematochezia Genitourinary: No Dysuria, No Incontinence Objective Exam Vital Signs Date Time Temp Pulse Resp B/P (MAP) Pulse Ox O2 Delivery O2 Flow Rate FiO2 12/24/19 04:00 36.1 78 18 181/84 (116) 96 Room Air 12/24/19 02:40 Room Air 12/24/19 00:51 36.8 70 18 175/74 (107) 99 Room Air 12/23/19 21:09 36.5 86 16 177/86 (116) 97 Room Air 12/23/19 21:00 Room Air 12/23/19 20:00 97 Room Air 12/23/19 17:05 36.1 79 16 165/81 (109) 97 Room Air 12/23/19 16:40 Room Air 12/23/19 11:41 36.1 86 16 152/70 (97) 93 Room Air 12/23/19 08:45 35.8 90 18 178/78 (111) 95 Room Air 12/23/19 08:00 97 Room Air I & O 12/24/19 07:00 Intake Total 4150 ml Output Total 4225 ml Balance -75 ml Capillary Refill : Less Than 3 SecondsLess Than 3 Seconds General Appearance: No Apparent Distress, WD/WN HEENT: Normal ENT Inspection, Pharynx Normal, Other (NGT present, with dark drainage) Neck: Full Range of Motion, Normal Inspection Respiratory: Lungs Clear, No Accessory Muscle Use, No Respiratory Distress, Decreased Breath Sounds (bases) Cardiovascular: Regular Rate, Rhythm, No Murmur, Normal Peripheral Pulses Peripheral Pulses: 2+ Radial Pulses (R), 2+ Radial Pulses (L) Gastrointestinal: soft, no organomegaly, tenderness (at incision) Extremity: Normal Inspection Neurologic/Psychiatric: Alert, Oriented x3, Normal 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, 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 Norm as Tested Skin: Normal Color, Warm/Dry, Other (Midline incision C/D/I with jimmy in place.) Lymphatic: No Adenopathy Results Lab Laboratory Tests 12/23/19 11:28: Glucometer 108 12/23/19 17:46: Glucometer 86 12/24/19 00:19: Glucometer 98 12/24/19 05:25: White Blood Count 3.7L, Red Blood Count 2.51L, Hemoglobin 7.6L, Hematocrit 23L, Mean Corpuscular Volume 92, Mean Corpuscular Hemoglobin 30, Mean Corpuscular Hemoglobin Concent 33, Red Cell Distribution Width 15.0H, Platelet Count 414H, Mean Platelet Volume 9.4, Immature Granulocyte % (Auto) 1, Neutrophils (%) (Auto) 52, Lymphocytes (%) (Auto) 20, Monocytes (%) (Auto) 12, Eosinophils (%) (Auto) 14H, Basophils (%) (Auto) 1, Neutrophils # (Auto) 2.0, Lymphocytes # (Auto) 0.7L, Monocytes # (Auto) 0.5, Eosinophils # (Auto) 0.5H, Basophils # (Auto) 0.0, Immature Granulocyte # (Auto) 0.1, Sodium Level 137, Potassium Level 3.5L, Chloride Level 105, Carbon Dioxide Level 23, Anion Gap 9, Blood Urea Nitrogen 3L, Creatinine 0.49L, Estimat Glomerular Filtration Rate > 60, BUN/Creatinine Ratio 6, Glucose Level 90, Calcium Level 7.9L, Magnesium Level 1.9 Microbiology 12/16/19 MRSA Screen - Final, Complete MRSA not isolated Assessment/Plan Assessment/Plan Assessment/Plan Gastroduodenal A. Perforation: Pt continues to improve without concerns or setback. Review later today how her GI system responds to breakfest and plan for discharge soon after. Per SS pt would benefit from Home Health Services. Clinical Quality Measures DVT/VTE Risk/Contraindication: Risk Factor Score Per Nursin RFS Level Per Nursing on Admit: 2=Moderate SELVIN GEORGES DO 12/24/19 1155: Subjective Time Seen by a Provider: 11:42 Subjective/Events-last exam Pt seen and examined, tolerating diet and pain controlled. Review of Systems General: No Night Sweats Pulmonary: No Dyspnea, No Cough Gastrointestinal: No: Vomiting, Abdominal Pain Objective Exam General Appearance: No Apparent Distress, WD/WN Respiratory: Lungs Clear, No Accessory Muscle Use, No Respiratory Distress, Decreased Breath Sounds (bases) Cardiovascular: Regular Rate, Rhythm, No Murmur Gastrointestinal: soft, no organomegaly, tenderness (at incision) Assessment/Plan Assessment/Plan Assessment/Plan S/P Gastroduodenal artery oversew D/C IV and D/C home Supervisory-Addendum Brief Verification & Attestation Participated in pt care: history, MDM, physical Personally performed: exam, history, MDM Care discussed with: Medical Student Procedures: n/a Verification and Attestation of Medical Student E/M Service A medical student performed and documented this service. I then reviewed and verified all information documented by the medical student and made modifications to such information, when appropriate. I personally performed a physical exam, medical decision making and then discussed any differences between the notes and made revisions as necessary to create one note. Selvin Georges , 12/24/19 , 11:55 LINDA THAYER MED STUDENT Dec 24, 2019 07:57 SELVIN GEORGES DO Dec 24, 2019 11:55
[2019-12-24] MEDS ORDERED: KCL 20 MEQ TAB (K-DUR) PO ONE (08:00)
[2019-12-24 08:30] VITALS: BP 150/78
[2019-12-24] MEDS: PANTOPRAZOLE 40 MG (PROTONIX) VIAL IV SCH (08:33)
[2019-12-24] MEDS: FLUCONAZOLE 200 MG/100 ML 50 ML, EMPTY IV BAG (PVC) 1 EA IV SCH ×2 (08:33)
[2019-12-24] MEDS: LOSARTAN 100 MG (COZAAR) TABLET PO SCH (08:34)
[2019-12-24] MEDS ORDERED: TRAM50TA3 PO (11:57)
--- NOTE | 2019-12-24 11:57 | Occ Therapy Progress Note ---
Therapy Progress Note OT to see pt for tx, pt indicates she is at her PLOF and does not require further OT services at this time. Pt hopeful to go home today. Pt has already showered, indicating she was able to complete shower with set up assist to cover IV and dressings. Pt reports independent level with footwear and eating. D/C from OT due to pt being at her PLOF, no further skilled OT services indicated at this time. 1, visit JOSE PENA OT Dec 24, 2019 11:57
--- NOTE | 2019-12-24 11:58 | Discharge Inst-Surgical ---
Discharge Inst-Surgical Depart Medication/Instructions New, Converted or Re-Newed RX: RX Given to Pt/Family Patient Instructions Follow up Appt: Make appointment for 1 week. [phone] Instructions: No lifting greater than 20 pounds. No strenuous activity. May shower in 24 hours, no tub bath or soaking. Use incentive spirometer at home as directed. No Smoking Skin/Wound Care: May remove bandages in am. You need to leave the Dermabond on incision it will fall off on it's own. Symptoms to Report: Appetite Changes, Extremity Discoloration, Numbness/Tingling, Swelling Increased, Bleeding Excessive, Eyesight Changes, Pain Increased, Urine Color Change, Constipation(Persistent), Fever over 101 degree F, Pain/Pressure in chest, Urinating Difficulty, Cough Up/Vomit Blood, Heart Beat Irreg/Pounding, Pain/Pressure in jaw, Cramps in feet or legs, Lightheadedness, Pain/Pressure in shoulder, Diarrhea(Persistent), Memory Changes Suddenly, Questions/Concerns, Weight gain consecutive days, Dizziness/Fainting, Nausea/Vomiting, Shortness of Breath, Weight gain over 2 pounds If questions or concerns contact your physician Or seek help at emergency department. Activity Activity as Tolerated: Yes Activity Instructions: Avoid Stress to Incision Driving Instructions: No Driving/Refer to Dr. Miller Discharge Diet: No Restrictions Diet After 24 Hours: Clear Liquid if Nauseous If Any Problems/Questions/Issu: Contact Your Physician, Go to Emergency Room Skin/Wound Care Infection Signs and Symptoms: Increased Redness, Increased Drainage, Skin Itchy or Has a Rash, Increased Swelling, Temperature Above 101 F Wound Care Comment: CARIDAD teaching Bathing Instructions: Shower Stitches/[place]/Dermabond Dis: Care of SELVIN Bosch DO Dec 24, 2019 11:58
--- NOTE | 2019-12-24 12:11 | NUR ---
CM/SS: Visited with pt as to plan for discharge Plan: Pt to discharge to home with no identified services - initially pt wanted home care - but has determined that she no long will need their services Summary: Pt reports feeling better today and ready to go home. Pt reports she was able to take a bath yesterday and today with little to no assistance. Initially she wanted to have home care so that she could have assistance with taking a bath. Since she is able to take her bath with little assistance, she does not need any home care. Pt reminded to have someone in the home when she were to take a bath and for safety. Pt verbalizes understanding. Pt reports having a ride, as her will be able to pick her up when she is ready. Pt is wished well. Pt appreciative of the visits and reports she has had very good care here. Information passed along to physician Dr. Ahuja. Plan is for pt to be dismissed to home on today.
[2019-12-24 12:22] VITALS: BP 145/81
[2019-12-24 14:21] VITALS: BP 145/81
== END 2019-12-24 14:21 | disposition home or self-care (01) | DRG 326 ==
LOC: EDUNIT# 23:02 → ER 23:03 → SDC 12-15 03:06 → ICU 12-15 03:43 → SDC 12-15 03:44 → 4TH 12-17 14:55
PROVIDERS: ADMIT Surgery; ATTEND Surgery
PROC: 0DJ08ZZ Inspection of Upper Intestinal Tract, Via Natural or Artificial Opening Endoscopic (ICD-10-PCS; 2019-12-15)
PROC: 0BH17EZ Insertion of Endotracheal Airway into Trachea, Via Natural or Artificial Opening (ICD-10-PCS; 2019-12-15)
PROC: 5A1935Z Respiratory Ventilation, Less than 24 Consecutive Hours (ICD-10-PCS; 2019-12-15)
PROC: 04Q Lower Arteries, Repair (ICD-10-PCS; principal; 2019-12-16)
PROC: 0D870ZZ Division of Stomach, Pylorus, Open Approach (ICD-10-PCS; 2019-12-16)
DX: K26.6 Chronic or unspecified duodenal ulcer with both hemorrhage and perforation (principal); R57.1 Hypovolemic shock; E87.1 Hypo-osmolality and hyponatremia; D50.0 Iron deficiency anemia secondary to blood loss (chronic); I10 Essential (primary) hypertension; K58.9 Irritable bowel syndrome, unspecified; K44.9 Diaphragmatic hernia without obstruction or gangrene; F41.9 Anxiety disorder, unspecified; F32.9 Major depressive disorder, single episode, unspecified; S09.90XA Unspecified injury of head, initial encounter; W22.8XXA Striking against or struck by other objects, initial encounter; R56.9 Unspecified convulsions; Z20.828 Contact with and (suspected) exposure to other viral communicable diseases; Z90.710 Acquired absence of both cervix and uterus; Z87.81 Personal history of (healed) traumatic fracture
CPT/HCPCS: 36415; 36430; 70450; 71045; 72125; 74150; 74177; 80048; 80053; 82805; 82962; 83605; 83735; 84100; 84134; 84478; 84484; 85007; 85014; 85018; 85025; 85027; 85379; 85384; 85610; 85730; 86850; 86900; 86901; 86920; 87081; 87635; 94002; 94760; 94799; 96374; 96375; 99291

== ENCOUNTER 2020-01-13 10:10 | Day surgery (SDC) | payer BC ==
[2020-01-13] VITALS (8 sets, daily range): BP systolic 138–169; BP diastolic 63–88
[~2020-01-13] VITALS: Ht 170 cm; Wt 79000.0 kg
[~2020-01-13 10:10] MED LIST changes: +BACL5TAB PO; +CALC300T4 PO; +IBUP-2473 PO; +MELO15TA39 PO; +TRAM50TA3 PO
[2020-01-13 10:55] LABS: BASOPHILS % (AUTO) 0 % (0-10); EOSINOPHILS # (AUTO) 0.1 10^3/uL (0.0-0.3); EOSINOPHILS % (AUTO) 1 % (0-10); HEMATOCRIT 33 % (35-52); HEMOGLOBIN 10.4 g/dL (11.5-16.0); LYMPHOCYTES # (AUTO) 0.6 10^3/uL (1.0-4.0); LYMPHOCYTES % (AUTO) 6 % (12-44); MEAN CORPUSCULAR HEMOGLOBIN 28 pg (25-34); MEAN CORPUSCULAR HGB CONC 32 g/dL (32-36); MEAN CORPUSCULAR VOLUME 89 fL (80-99); MEAN PLATELET VOLUME 10.1 fL (9.0-12.2); MONOCYTES # (AUTO) 0.7 10^3/uL (0.0-1.0); MONOCYTES % (AUTO) 7 % (0-12); NEUTROPHILS # (AUTO) 8.5 10^3/uL (1.8-7.8); NEUTROPHILS % (AUTO) 85 % (42-75); PLATELET COUNT 245 10^3/uL (130-400)
--- NOTE | 2020-01-13 10:56 | ED Abdominal Pain ---
General Chief Complaint: Abdominal/GI Problems Stated Complaint: LABS AND IV Nursing Triage Note: ARRIVED VIA AMB TO ROOM 07 WITH COMPLAINTS OF INCREASED ABD PAIN, REDNESS, AND HARDNESS AROUND INCISION SITE. Sepsis Screen: No Definite Risk Source of Information: Patient Exam Limitations: No Limitations History of Present Illness Date Seen by Provider: Jan 13, 2020 Time Seen by Provider: 10:53 Initial Comments To ER with incisional redness and pain. The firmness to the incision site started a few days ago, the pain became more intense yesterday and the redness started today. She denies fevers but has had chills. She had open repair of a bleeding gastroduodenal ulcer causing significant hematemesis requiring massive transfusion protocol on 12/16/2019. Timing/Duration: 2-3 Days, Getting Worse Severity/Quality: Moderate Radiation: No Radiation Activities at Onset: None Associated Symptoms: Fever/Chills, Nausea/Vomiting (Nausea) Allergies and Home Medications Allergies Coded Allergies: No Known Drug Allergies (Unverified , 10/25/16) Home Medications Baclofen 5 Mg Tablet, 5 MG PO BID PRN for MUSCLE SPASMS, (Reported) Calcium Carbonate 300 Mg Tab.chew, 300-600 MG PO PRN PRN for INDIGESTION, (Reported) Ciprofloxacin HCl 500 Mg Tablet, 500 MG PO BID Prescribed by: KARI SOLARES on 01/13/20 1224 Hydrocodone/Acetaminophen 1 Each Tablet, 1 EACH PO Q4H PRN for PAIN-MILD (1-4) Prescribed by: KARI SOLARES on 01/13/20 1225 Losartan Potassium 100 Mg Tablet, 100 MG PO DAILY, (Reported) Metronidazole 500 Mg Tablet, 500 MG PO TID Prescribed by: KARI SOLARES on 01/13/20 1224 Ondansetron 8 Mg Tab.rapdis, 8 MG PO Q6H PRN for NAUSEA/VOMITING Prescribed by: KARI SOLARES on 01/13/20 1224 Paroxetine HCl 20 Mg Tablet, 20 MG PO HS, (Reported) Tramadol HCl 50 Mg Tablet, 100 MG PO Q6- 8H PRN for PAIN-MODERATE (5-7) Prescribed by: SELVIN GEORGES on 12/24/19 1157 Patient Home Medication List Home Medication List Reviewed: Yes Review of Systems Review of Systems Constitutional: see HPI, chills; No fever EENTM: No Symptoms Reported Respiratory: No Symptoms Reported Cardiovascular: No Symptoms Reported Gastrointestinal: See HPI, Nausea; Denies Vomiting Genitourinary: No Symptoms Reported Musculoskeletal: no symptoms reported Skin: see HPI Psychiatric/Neurological: No Symptoms Reported Endocrine: No Symptoms Reported Hematologic/Lymphatic: No Symptoms Reported Past Xpgwtls-Vbfepa-Wdkbvw Hx Patient Social History Alcohol Use: Occasionally Uses Recreational Drug Use: No Smoking Status: Never a Smoker Recent Foreign Travel: No Contact w/Someone Who Travel: No Recent Infectious Disease Expo: No Recent Hopitalizations: No Immunizations Up To Date Date of Influenza Vaccine: Dec 04, 2019 Seasonal Allergies Seasonal Allergies: Yes Past Medical History Surgeries: Yes Hysterectomy, Tonsillectomy Respiratory: No Cardiac: Yes Hypertension Neurological: No 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 Sexually Transmitted Disease: No HIV/AIDS: No Genitourinary: No Gastrointestinal: Yes (TAKES PAROXETINE FOR IRR BOWEL) Irritable Bowel Musculoskeletal: No Endocrine: No Loss of Vision: Bilateral Hearing Impairment: Denies Cancer: No Psychosocial: Yes (TAKES PAROXITINE FOR IRR BOWEL) Integumentary: No Blood Disorders: No Adverse Reaction/Blood Tranf: No (N/A) Family Medical History Cancer, Hypertension Physical Exam Vital Signs Vital Signs - First Documented 01/13/20 10:20 Temp 37.5 Pulse 80 Resp 16 B/P (MAP) 130/66 (87) Pulse Ox 97 O2 Delivery Room Air Capillary Refill : Less Than 3 Seconds Height/Weight/BMI Height: 5'7.00" Weight: 182lbs. 0.0oz. 82.544190qg; 27.00 BMI Method: General Appearance: WD/WN, no apparent distress Neck: non-tender, full range of motion Respiratory: no respiratory distress, no accessory muscle use Gastrointestinal: normal bowel sounds, soft, tenderness (There is some periincisional redness and induration probably a seroma that is becoming infected.) Extremities: normal range of motion, non-tender Neurologic/Psychiatric: alert, normal mood/affect, oriented x 3 Skin: normal color, warm/dry Procedures/Interventions Date of ETT Placement: Dec 15, 2019 Time of ETT Placement: 2300 Progress/Results/Core Measures Results/Orders Lab Results Laboratory Tests Test 01/13/20 10:40 Range/Units White Blood Count 10.0 4.3-11.0 10^3/uL Red Blood Count 3.66 L 3.80-5.11 10^6/uL Hemoglobin 10.4 L 11.5-16.0 g/dL Hematocrit 33 L 35-52 % Mean Corpuscular Volume 89 80-99 fL Mean Corpuscular Hemoglobin 28 25-34 pg Mean Corpuscular Hemoglobin Concent 32 32-36 g/dL Red Cell Distribution Width 14.1 10.0-14.5 % Platelet Count 245 130-400 10^3/uL Mean Platelet Volume 10.1 9.0-12.2 fL Immature Granulocyte % (Auto) 0 % Neutrophils (%) (Auto) 85 H 42-75 % Lymphocytes (%) (Auto) 6 L 12-44 % Monocytes (%) (Auto) 7 0-12 % Eosinophils (%) (Auto) 1 0-10 % Basophils (%) (Auto) 0 0-10 % Neutrophils # (Auto) 8.5 H 1.8-7.8 10^3/uL Lymphocytes # (Auto) 0.6 L 1.0-4.0 10^3/uL Monocytes # (Auto) 0.7 0.0-1.0 10^3/uL Eosinophils # (Auto) 0.1 0.0-0.3 10^3/uL Basophils # (Auto) 0.0 0.0-0.1 10^3/uL Immature Granulocyte # (Auto) 0.0 0.0-0.1 10^3/uL Neutrophils % (Manual) 91 % Lymphocytes % (Manual) 4 % Monocytes % (Manual) 4 % Band Neutrophils 1 % Blood Morphology Comment NORMAL Sodium Level 131 L 135-145 MMOL/L Potassium Level 3.7 3.6-5.0 MMOL/L Chloride Level 97 L 98-107 MMOL/L Carbon Dioxide Level 24 21-32 MMOL/L Anion Gap 10 5-14 MMOL/L Blood Urea Nitrogen 3 L 7-18 MG/DL Creatinine 0.63 0.60-1.30 MG/DL Estimat Glomerular Filtration Rate > 60 BUN/Creatinine Ratio 5 Glucose Level 108 H 70-105 MG/DL Calcium Level 8.8 8.5-10.1 MG/DL Corrected Calcium 9.0 8.5-10.1 MG/DL Total Bilirubin 0.7 0.1-1.0 MG/DL Aspartate Amino Transf (AST/SGOT) 12 5-34 U/L Alanine Aminotransferase (ALT/SGPT) 12 0-55 U/L Alkaline Phosphatase 85 40-136 U/L Total Protein 6.4 6.4-8.2 GM/DL Albumin 3.8 3.2-4.5 GM/DL My Orders Orders - KARI SOLARES APRN Cbc With Automated Diff (01/13/20 10:43) Comprehensive Metabolic Panel (01/13/20 10:43) Ed Iv/Invasive Line Start (01/13/20 10:43) Fentanyl Injection (Sublimaze Injection (01/13/20 11:00) Ondansetron Injection (Zofran Injectio (01/13/20 11:00) Ns Iv 1000 Ml (Sodium Chloride 0.9%) (01/13/20 11:00) Clindamycin 900 Mg/50 Ml Ivpb (Cleocin P (01/13/20 11:00) Ct Abdomen/Pelvis W (01/13/20 10:49) Iohexol Injection (Omnipaque 350 Mg/Ml 1 (01/13/20 11:00) Di Iv Start (Assessment) .IV start (01/13/20 10:56) Received Contrast (Hold Metformin- Contr (01/13/20 11:00) Ns (Ivpb) (Sodium Chloride 0.9% Ivpb Bag (01/13/20 11:00) Manual Differential (01/13/20 10:40) Medications Given in ED Current Medications Medications Dose Ordered Sig/Beto Route Start Time Stop Time Status Last Admin Dose Admin Clindamycin Phosphate/Dextrose 50 ml @ 100 mls/hr ONCE ONCE IV 01/13/20 11:00 01/13/20 11:29 DC 01/13/20 11:49 100 MLS/HR Fentanyl Citrate 50 mcg ONCE ONCE IVP 01/13/20 11:00 01/13/20 11:01 DC 01/13/20 10:59 50 MCG Ondansetron HCl 8 mg ONCE ONCE IVP 01/13/20 11:00 01/13/20 11:01 DC 01/13/20 10:59 8 MG Vital Signs/I&O 01/13/20 10:20 Temp 37.5 Pulse 80 Resp 16 B/P (MAP) 130/66 (87) Pulse Ox 97 O2 Delivery Room Air Blood Pressure Mean: 87 Departure Communication (Admissions) I will transfer the patient down to the day surgery center until her drain is done at 3 PM today. Impression Primary Impression: Incisional infection Disposition: ADMITTED INPATIENT Condition: Stable Admissions Decision to Admit Reason: Admit from ER (General) Decision to Admit/Date: Jan 13, 2020 Time/Decision to Admit Time: 12:39 Departure-Patient Inst. Decision time for Depature: 12:21 Referrals: AUGUSTA MARTINEZ MD (PCP/Family) Primary Care Physician Patient Instructions: Wound Infection Add. Discharge Instructions: 1 Return to ER in the meantime for any fevers chills or worsening pain. Ant ibiotics, nausea medication and pain medication in the meantime. All discharge instructions reviewed with patient and/or family. Voiced understanding. Scripts Hydrocodone/Acetaminophen (Hydrocodone-Acetamin 5-325 mg) 1 Each Tablet 1 EACH PO Q4H PRN for PAIN-MILD (1-4), #10 TAB Prov: KARI SOLARES APRN 01/13/20 Ondansetron (Ondansetron Odt) 8 Mg Tab.rapdis 8 MG PO Q6H PRN for NAUSEA/VOMITING, #10 TAB Prov: KARI SOLARES APRN 01/13/20 Metronidazole (Flagyl) 500 Mg Tablet 500 MG PO TID, #21 TAB Prov: KARI SOLARES APRN 01/13/20 Ciprofloxacin HCl (Ciprofloxacin HCl) 500 Mg Tablet 500 MG PO BID, #14 TAB Prov: KARI SOLARES APRN 01/13/20 KARI SOLARES APRN Jan 13, 2020 10:56
[2020-01-13] MEDS ORDERED: NS 100 ML (IVPB) BAG IV ONE (11:00)
[2020-01-13] MEDS ORDERED: fentaNYL INJECTION 100 MCG/2 ML AMP IVP ONE ×2 (11:00→14:30)
[2020-01-13] MEDS ORDERED: NS IV 1000 ML 1,000 ML IV SCH (11:00)
[2020-01-13] MEDS ORDERED: ONDANSETRON 4 MG/2 ML (SDV) Z0FRAN IVP ONE (11:00)
[2020-01-13] MEDS ORDERED: HOLD METFORMIN - RECEIVED CONTRAST 20 ML VIAL IV SCH (11:00)
[2020-01-13] MEDS ORDERED: IOHEXOL 350 MG/ML 100 ML (OMNIPAQUE 350) VIAL IV ONE (11:00)
[2020-01-13] MEDS ORDERED: CLINDAMYCIN 900 MG/50 ML IVPB 50 ML IV ONE (11:00)
[2020-01-13 11:08] LABS: BAND NEUTROPHILS 1 %; LYMPHOCYTES % (MANUAL) 4 %; MONOCYTES % (MANUAL) 4 %; NEUTROPHILS % (MANUAL) 91 %; RBC MORPH NORMAL
--- NOTE | 2020-01-13 11:15 | NUR ---
PT REPORTS FEELING BETTER AFTER MEDS GIVEN.
[2020-01-13 11:19] LABS: ALANINE AMINOTRANSFERASE 12 U/L (0-55); ALBUMIN 3.8 GM/DL (3.2-4.5); ALKALINE PHOSPHATASE 85 U/L (40-136); BILIRUBIN,TOTAL 0.7 MG/DL (0.1-1.0); BUN/CREATININE RATIO 5; CALCIUM 8.8 MG/DL (8.5-10.1); CARBON DIOXIDE 24 MMOL/L (21-32); CHLORIDE 97 MMOL/L (98-107); CREATININE SERUM 0.63 MG/DL (0.60-1.30); GFR ESTIMATED > 60; GLUCOSE 108 MG/DL (70-105); POTASSIUM 3.7 MMOL/L (3.6-5.0); SODIUM 131 MMOL/L (135-145); TOTAL PROTEIN 6.4 GM/DL (6.4-8.2)
--- NOTE | 2020-01-13 12:07 | Diagnostic Imaging Report ---
EXAMINATION: CT Abdomen and Pelvis with intravenous contrast. TECHNIQUE: Multiple contiguous axial images were obtained through the abdomen and pelvis after the uneventful administration of intravenous contrast. All CT scans use one or more of the following dose optimizing techniques: automated exposure control, MA and/or KvP adjustment based on a patient size and exam type, or iterative reconstruction. HISTORY: Recent surgery with pain and redness around the incision site. COMPARISON: 12/22/2019. FINDINGS: Limited views of the lower thorax are unremarkable. The liver is normal without focal lesion. There is no biliary ductal dilation. Gallbladder is normal. Pancreas is normal. Spleen is normal. Adrenal glands are normal. The kidneys are normal. There is no hydronephrosis. Urinary bladder is normal. There has been a midline laparotomy incision. There is a gas and fluid collection underneath the incision measuring 3.6 x 3.5 x 5.8 cm. There is surrounding fat stranding. There is a small amount of gas adjacent to the 1st portion of the duodenum suggestive of a gastric ulcer (series 2, image 26). This has decreased in size from multiple prior exams and the previously seen free air has resolved. No intraperitoneal abscess is seen. No abdominal or pelvic lymphadenopathy. Aorta is normal in caliber without aneurysm. There are no suspicious osseus lesions. There are healing left inferior and superior pubic rami fractures. There are bilateral sacral alar insufficiency fractures. IMPRESSION: 1. Gas and fluid collection underneath the midline incision, consistent with an abscess in the subcutaneous tissues. 2. Small amount of gas adjacent to the first portion of the duodenum has decreased in size from prior exam and suggestive of a peptic ulcer. Dictated by: Dictated on workstation # [id number]
[2020-01-13] MEDS ORDERED: ONDA8TAB13 PO (12:24)
[2020-01-13] MEDS ORDERED: CIPR500T4 PO (12:24)
[2020-01-13] MEDS ORDERED: METR500T PO (12:24)
[2020-01-13] MEDS ORDERED: ACHD5005 PO (12:24)
--- NOTE | 2020-01-13 12:50 | NUR ---
PT STATES SHE HAS BEEN UPDATING HER FAMILY VIA PHONE.
[2020-01-13] MEDS ORDERED: NS IV 1000 ML 1,000 ML IV STA (14:18)
[2020-01-13] MEDS ORDERED: MIDAZOLAM 2 MG/2 ML (VERSED) VIAL IVP ONE (14:30)
[2020-01-13] MEDS ORDERED: LIDOCAINE 1% INJ 20 ML 20 ML VIAL INJ ONE (14:45)
--- NOTE | 2020-01-13 15:15 | NUR ---
BEDSIDE REPORT GIVEN TO THIS RN BY SENAIT RAMOS. PATIENT LYING IN THE BED, UNACCOMPANIED. NO NEEDS AT THIS TIME, WILL CONTINUE TO MONITOR.
--- NOTE | 2020-01-13 15:55 | NUR ---
PATIENT BACK FROM RADIOLOGY, BEDSIDE REPORT GIVEN BY SENAIT HARDIN. REPORTED THAT 15ML OF FLUID ASPIRATED FROM INCISION/SURGICAL SITE. PATIENT COMPLAINS OF PAIN 10/. CALLED DR. GEORGES, RECEIVED ORDER FOR HYDROCODONE 5/325MG PO X1. VITALS STABLE. WILL CONTINUE TO MONITOR.
[2020-01-13] MEDS ORDERED: HYDROcodone/APAP 5 MG/325 MG (LORTAB) TAB ONE (15:59)
[2020-01-13] MEDS ORDERED: HYDROcodone/APAP 5 MG/325 MG (LORTAB) TAB PO PRN (16:00)
[2020-01-13] MEDS ORDERED: HYDROcodone/APAP 5 MG/325 MG (LORTAB) TAB PO ONE (16:00)
--- NOTE | 2020-01-13 18:24 | Diagnostic Imaging Report ---
INDICATION: Abdominal wall abscess. TECHNIQUE: All CT scans use one or more of the following dose optimizing techniques: automated exposure control, MA and/or KvP adjustment based on patient size and exam type or iterative reconstruction. The patient was brought to the CT suite, placed on table in the supine position. Axial imaging through the abdomen was performed to evaluate appropriate entry site. The abdomen was then prepped and draped in the usual sterile fashion. A small amount of 1% lidocaine was utilized for local anesthesia. The procedure was performed utilizing conscious sedation with radiology nursing and constant monitoring. The patient was administered a total of 100 mcg of fentanyl intravenously. Total procedure time, 6 minutes. A [id number] needle was advanced from a right paramidline approach and placed with its tip into the gas and fluid collection in the midline anterior abdominal wall. Approximately 15 mL of purulent material was removed. The needle was removed and hemostasis was obtained. Follow-up imaging shows no complicating features. There was complete evacuation of the fluid collection. IMPRESSION: Successful CT guided abdominal wall abscess drainage, utilizing conscious sedation. Dictated by: Dictated on workstation # [id number]
== END 2020-01-13 16:45 | disposition home or self-care (01) ==
LOC: EDUNIT# 10:10 → ER 10:12 → SDC 13:17
PROVIDERS: ATTEND Surgery
DX: T81.40XA Infection following a procedure, unspecified, initial encounter (principal); I10 Essential (primary) hypertension; K58.9 Irritable bowel syndrome, unspecified; Z79.899 Other long term (current) drug therapy; Z90.710 Acquired absence of both cervix and uterus; Z80.9 Family history of malignant neoplasm, unspecified
CPT/HCPCS: 74177; 77012; 80053; 85007; 85027; 87070; 87075; 87076; 87077; 87205; 96361; 96365; 96375; 99284; C1729; 36415

== ENCOUNTER 2020-01-15 14:59 | Day surgery (SDC) | payer BC ==
[2020-01-15] VITALS (10 sets, daily range): BP systolic 101–156; BP diastolic 40–66
[~2020-01-15] VITALS: Ht 170 cm; Wt 78.0 kg
[~2020-01-15 14:59] MED LIST changes: +ACHD5005 PO; +CIPR500T4 PO; +METR500T PO; +ONDA8TAB13 PO
[2020-01-15] MEDS ORDERED: ONDANSETRON 4 MG/2 ML (SDV) Z0FRAN ONE (15:05)
[2020-01-15] MEDS ORDERED: fentaNYL INJECTION 100 MCG/2 ML AMP ONE (15:05)
[2020-01-15] MEDS ORDERED: LIDOCAINE PF 2% 5 ML (XYLOCAINE) VIAL ONE (15:05)
[2020-01-15] MEDS ORDERED: proPOfol 200 MG/20 ML (DIPRIVAN) VIAL IV ONE (15:05)
[2020-01-15] MEDS ORDERED: MIDAZOLAM 2 MG/2 ML (VERSED) VIAL ONE (15:05)
[2020-01-15] MEDS ORDERED: SEVOFLURANE (ULTANE) 15 ML INHAL SOLN ONE (15:06)
[2020-01-15] MEDS ORDERED: LACTATED RINGERS 1,000 ML IV PRN (15:26)
[2020-01-15] MEDS ORDERED: PHENYLEPHRINE 100 MCG/ML 10 ML (ANESTHESIA) SYR ONE (15:32)
--- NOTE | 2020-01-15 15:38 | Progress Note-Post Operative ---
Post-Operative Progess Note Surgeon (s)/Nurse Companion (s) Surgeon SELVIN GEORGES DO Nurse Companion: GENEVIEVE Solomon Pre-Operative Diagnosis SubQ abd abscess Post-Operative Diagnosis same Procedure & Operative Findings Date of Procedure 01/15/20 Procedure Performed/Findings I&D with packing Anesthesia Type LMA Estimated Blood Loss Estimated blood loss (mL): scant Specimens/Packing Specimens Removed abscess clx Packin/2 inch iodophor packing SELVIN GEORGES DO Jan 15, 2020 15:38
--- NOTE | 2020-01-15 15:40 | Discharge Inst-Surgical ---
Discharge Inst-Surgical Depart Medication/Instructions New, Converted or Re-Newed RX: Other (take home meds, continue abx) Patient Instructions Follow up Appt: Make appointment for 1 week. [phone] Instructions: No lifting greater than 20 pounds. No strenuous activity. May shower in 24 hours, no tub bath or soaking. Use incentive spirometer at home as directed. No Smoking Skin/Wound Care: May remove bandages in am. You need to change packing daily. Symptoms to Report: Appetite Changes, Extremity Discoloration, Numbness/Tingling, Swelling Increased, Bleeding Excessive, Eyesight Changes, Pain Increased, Urine Color Change, Constipation(Persistent), Fever over 101 degree F, Pain/Pressure in chest, Urinating Difficulty, Cough Up/Vomit Blood, Heart Beat Irreg/Pounding, Pain/Pressure in jaw, Cramps in feet or legs, Lightheadedness, Pain/Pressure in shoulder, Diarrhea(Persistent), Memory Changes Suddenly, Questions/Concerns, Weight gain consecutive days, Dizziness/Fainting, Nausea/Vomiting, Shortness of Breath, Weight gain over 2 pounds If questions or concerns contact your physician Or seek help at emergency department. Activity Driving Instructions: No Driving/Refer to Dr. Miller Discharge Diet: No Restrictions Diet After 24 Hours: Clear Liquid if Nauseous If Any Problems/Questions/Issu: Contact Your Physician, Go to Emergency Room Skin/Wound Care Infection Signs and Symptoms: Increased Redness, Foul Odor of Wound, Increased Drainage, Skin Itchy or Has a Rash, Increased Swelling, Temperature Above 101 F Bathing Instructions: SELVIN Moya DO Jan 15, 2020 15:40
[2020-01-15] MEDS ORDERED: PROMETHAZINE INJ 25 MG/ML (PHENERGAN) AMP IVP ONE (15:45)
[2020-01-15] MEDS ORDERED: MEPERIDINE (DEMEROL) INJ 50 MG/ML IVP ONE (15:45)
[2020-01-15] MEDS ORDERED: ONDANSETRON 4 MG/2 ML (SDV) Z0FRAN IVP PRN (15:45)
[2020-01-15] MEDS ORDERED: fentaNYL INJECTION 100 MCG/2 ML AMP IVP ONE (15:45)
[2020-01-15] MEDS ORDERED: morphine INJ 10 MG/ML 1ML (SYR OR VIAL) IVP ONE (15:45)
[2020-01-15] MEDS ORDERED: HYDROcodone/APAP 5 MG/325 MG (LORTAB) TAB PO ONE (16:45)
[2020-01-15] MEDS ORDERED: HYDROcodone/APAP 5 MG/325 MG (LORTAB) TAB ONE (16:49)
--- NOTE | 2020-01-20 13:51 | Anesthesia-General Post-Op ---
General Patient Condition Mental Status/LOC: Same as Preop Cardiovascular: Satisfactory Nausea/Vomiting: Absent Respiratory: Satisfactory Pain: Controlled Complications: Absent Post Op Complications Complications None Follow Up Care/Instructions Patient Instructions None needed. Anesthesia/Patient Condition Patient Condition Patient is doing well, no complaints, stable vital signs, no apparent adverse anesthesia problems. No complications reported per nursing. OLGA BOSCH CRNA Jan 20, 2020 13:51
--- NOTE | 2020-02-03 14:13 | OPERATIVE REPORT ---
DATE OF SERVICE: 01/15/2020 PREOPERATIVE DIAGNOSIS: Subcutaneous abdominal abscess. POSTOPERATIVE DIAGNOSIS: Subcutaneous abdominal abscess. PROCEDURE: Incision and drainage with packing. SURGEON: Johnnie Georges DO LOGISTICS SYSTEM ENGINEER: Yelena Sepulveda MS3. ANESTHESIA: LMA. SPECIMEN: Abscess culture. BLOOD LOSS: Scant. FLUIDS: Per anesthesia. POSTOPERATIVE CONDITION: Stable. INDICATION FOR PROCEDURE: The patient is a 64-year-old female, who had abscess under her previous incision, had had it drained the day prior, got a little bit of purulent fluid. She came back, felt worse and we elected to take her to open this up to drain it. FINDINGS: The patient had a large amount of purulent fluid, probably at least 10 to 20 mL. Cultures were performed. PROCEDURE NOTE: After informed consent was obtained, the patient was brought to the operating room, placed on the operating table in supine position. She was sterilely prepped and draped in normal fashion. An incision was made with a #15 blade, carried down through the skin into subcutaneous tissue, made through the previous midline incision, a little down and then bluntly entered this abscess cavity, 10 to 20 mL of purulent fluid was found, cultured this and then carefully washed this out with copious amounts of normal saline, debrided roughly with 4 x 4s and then hemostasis obtained using Bovie electrocautery, then elected to pack with half inch iodoform packing. Once this was packed, area was cleaned and dried and pressure dressing placed. The patient tolerated the procedure. She was transferred to recovery room in stable condition. Sponge, instrument and needle count correct at the end of the case. Job ID: [id number] DocumentID: [id number] Dictated Date: 02/03/2020 11:06:18 Nut Sifter Date: 02/03/2020 14:12:53 Dictated By: JOHNNIE GEORGES DO
== END 2020-01-15 17:50 | disposition home or self-care (01) ==
LOC: SDC 14:59
PROVIDERS: ATTEND Surgery
DX: L02.211 Cutaneous abscess of abdominal wall (principal); I10 Essential (primary) hypertension; M19.90 Unspecified osteoarthritis, unspecified site; Z79.899 Other long term (current) drug therapy; Z90.710 Acquired absence of both cervix and uterus; Z20.828 Contact with and (suspected) exposure to other viral communicable diseases
CPT/HCPCS: 49020; 87070; 87075; 87081; 87205; U0002; 87635

== ENCOUNTER 2020-02-12 05:35 | Outpatient (RCR) | payer BC ==
[~2020-02-12] VITALS: Ht 170 cm; Wt 72.7 kg
[2020-02-16] MEDS ORDERED: ACHD5005 PO (12:42)
[2020-02-16] MEDS ORDERED: TRAM50TA3 PO (12:42)
== END 2020-02-12 10:11 | disposition home or self-care (01) ==
LOC: PREOP 05:35
PROVIDERS: ATTEND Surgery
DX: Z01.812 Encounter for preprocedural laboratory examination (principal); L98.9 Disorder of the skin and subcutaneous tissue, unspecified; Z20.828 Contact with and (suspected) exposure to other viral communicable diseases; Z87.19 Personal history of other diseases of the digestive system
CPT/HCPCS: 87635

== ENCOUNTER 2020-02-16 09:00 | Day surgery (SDC) | payer BC ==
[~2020-02-16] VITALS: Ht 170 cm; Wt 72.7 kg
[2020-02-16 09:15] VITALS: BP 157/61
[2020-02-16] MEDS ORDERED: LACTATED RINGERS 1,000 ML IV PRN (09:30)
[2020-02-16] MEDS ORDERED: ceFAZolin 2 GM IV Premixed 50 ML IV ONE (09:30)
[2020-02-16] MEDS ORDERED: CATHETER FLUSH 10 ML SYR IV PRN (09:30)
[2020-02-16] MEDS ORDERED: LIDOCAINE/EPI 1%-1:100,000 (XYLOCAINE) 20ML ONE (11:37)
[2020-02-16] MEDS ORDERED: MIDAZOLAM 2 MG/2 ML (VERSED) VIAL ONE (11:41)
--- NOTE | 2020-02-16 12:00 | Progress Note-Pre Operative ---
Pre-Operative Progress Note H&P Reviewed The H&P was reviewed, patient examined and no changes noted. Time Seen by Provider: 11:57 Date H&P Reviewed: Feb 16, 2020 Time H&P Reviewed: 11:58 Pre-Operative Diagnosis: Left forehead (site marked), hx of duodenal ulcer SELVIN GEORGES DO Feb 16, 2020 12:00
[2020-02-16] MEDS ORDERED: PROPOFOL INJECTION 50 ML IV ONE ×2 (12:23→12:35)
[2020-02-16] MEDS ORDERED: ONDANSETRON 4 MG/2 ML (SDV) Z0FRAN ONE (12:35)
--- NOTE | 2020-02-16 12:41 | Progress Note-Post Operative ---
Post-Operative Progess Note Surgeon (s)/Blood Bank Supervisor (s) Surgeon SELVIN GEORGES DO Blood Bank Supervisor: none Pre-Operative Diagnosis Left forehead (site marked), hx of duodenal ulcer Post-Operative Diagnosis Left forehead mass pending path Duodenal ulcer Gastritis Hiatal Hernia Procedure & Operative Findings Date of Procedure 02/16/20 Procedure Performed/Findings EGD with bx Exc of forehead mass, 3.4 x 1.2 cm Anesthesia Type IV sedation by SADDLE STITCHER Estimated Blood Loss Estimated blood loss (mL): less than 5ml Specimens/Packing Specimens Removed antral bx GE jxn bx Left forehead mass SELVIN GEORGES DO Feb 16, 2020 12:41
[2020-02-16] MEDS ORDERED: TRAM50TA3 PO (12:42)
[2020-02-16] MEDS ORDERED: ACHD5005 PO (12:42)
[2020-02-16 12:43] VITALS: BP 133/64
--- NOTE | 2020-02-16 12:43 | Endoscopy Discharge Instruct ---
Endo Procedure/Findings Findings 1.: Duodenal Ulcer 2.: Gastritis 3.: Hiatal Hernia Discharge Instructions - Activity: You might feel a little sleepy until tomorrow. This is due to the medicine you received to relax you. Until tomorrow, you should: NOT drive a car, operate machinery or power tools. NOT drink any alcoholic beverages. NOT make any important decisions or sign importortant papers. Do not return to work until tomorrow, unless otherwise instructed. Resume previous activities tomorrow. Diet: Start by taking liquids. If you tolerate liquids, advance to solid food. 1.: EGD in 6-8 weeks Notify Physician - If you experience excessive bleeding, unusual abdominal pain, fever, or chest pain, contact your doctor immediately. SELVIN GEORGES DO Feb 16, 2020 12:43
--- NOTE | 2020-02-16 12:43 | Discharge Inst-Surgical ---
Discharge Inst-Surgical Depart Medication/Instructions New, Converted or Re-Newed RX: RX Given to Pt/Family Patient Instructions Follow up Appt: Make appointment for 1 week. [phone] Instructions: May shower in 24 hours, no tub bath or soaking. Use incentive spirometer at home as directed. No Smoking Skin/Wound Care: May remove bandages in am. You need to leave the Dermabond on incision it will fall off on it's own. Symptoms to Report: Appetite Changes, Extremity Discoloration, Numbness/Tingling, Swelling Increased, Bleeding Excessive, Eyesight Changes, Pain Increased, Urine Color Change, Constipation(Persistent), Fever over 101 degree F, Pain/Pressure in chest, Urinating Difficulty, Cough Up/Vomit Blood, Heart Beat Irreg/Pounding, P ain/Pressure in jaw, Cramps in feet or legs, Lightheadedness, Pain/Pressure in shoulder, Diarrhea(Persistent), Memory Changes Suddenly, Questions/Concerns, Weight gain consecutive days, Dizziness/Fainting, Nausea/Vomiting, Shortness of Breath, Weight gain over 2 pounds If questions or concerns contact your physician Or seek help at emergency department. Activity Activity as Tolerated: Yes Activity Instructions: Avoid Stress to Incision Driving Instructions: No Driving/Refer to Dr. Miller Discharge Diet: No Restrictions Diet After 24 Hours: Clear Liquid if Nauseous If Any Problems/Questions/Issu: Contact Your Physician, Go to Emergency Room Skin/Wound Care Infection Signs and Symptoms: Increased Redness, Foul Odor of Wound, Increased Drainage, Skin Itchy or Has a Rash, Increased Swelling, Temperature Above 101 F Stitches/[place]/Dermabond Dis: SELVIN Aceves DO Feb 16, 2020 12:43
[2020-02-16] MEDS ORDERED: fentaNYL INJECTION 100 MCG/2 ML AMP IVP ONE (12:45)
[2020-02-16] MEDS ORDERED: morphine INJ 10 MG/ML 1ML (SYR OR VIAL) IVP ONE (12:45)
[2020-02-16] MEDS ORDERED: MEPERIDINE (DEMEROL) INJ 50 MG/ML IVP ONE (12:45)
[2020-02-16] MEDS ORDERED: ONDANSETRON 4 MG/2 ML (SDV) Z0FRAN IVP PRN (12:45)
[2020-02-16 12:50] VITALS: BP 147/96
[2020-02-16 13:00] VITALS: BP 160/79
[2020-02-16 13:05] VITALS: BP_SYST 133; BP_SYST 160; BP_SYST 166; BP_SYST 174; BP_DIAS 64; BP_DIAS 78; BP_DIAS 79; BP_DIAS 86
--- NOTE | 2020-02-16 13:48 | Anesthesia-General Post-Op ---
MAC Patient Condition Mental Status/LOC: Same as Preop Cardiovascular: Satisfactory Nausea/Vomiting: Absent Respiratory: Satisfactory Pain: Controlled Complications: Absent Post Op Complications Complications None Follow Up Care/Instructions Patient Instructions None needed. Anesthesiology Discharge Order Discharge Order Patient is doing well, no complaints, stable vital signs, no apparent adverse anesthesia problems. FRANCES ESCOBAR DO Feb 16, 2020 13:48
[2020-02-16 13:50] VITALS: BP 160/78
--- NOTE | 2020-02-16 22:47 | OPERATIVE REPORT ---
DATE OF SERVICE: 02/16/2020 PREOPERATIVE DIAGNOSES: 1. History of duodenal ulcer with perforation and bleeding. 2. Left forehead mass. POSTOPERATIVE DIAGNOSES: Duodenal ulcer, gastritis, hiatal hernia and forehead mass. PROCEDURES: 1. EGD with biopsy. 2. Excision of a forehead mass. SURGEON: Johnnie Ahuja DO JAVA DEVELOPMENT MANAGER: None. ANESTHESIA: IV sedation by the CTRS. SPECIMEN: 1. Biopsy from the antrum as well as the GE junction. 2. Forehead mass. BLOOD LOSS: Scant. FLUIDS: Per anesthesia. POSTOPERATIVE CONDITION: Stable. INDICATION FOR PROCEDURE: The patient is a 64-year-old female who has a history of bleeding perforated duodenal ulcer and then needed to get this looked at as well. She had a mass on her forehead, it was under the skin and she wanted to get this removed. FINDINGS: The patient had still some small ulceration in the duodenum and some erythema and some redness and gastritis at the antrum as well as a hiatal hernia. Left forehead mass was removed, measured 3.4 x 1.2 cm. The excision sent to pathology just above the galea. PROCEDURE NOTE: After informed consent was obtained, the patient was brought to the operating room, placed on the table in the left lateral decubitus position, administered IV sedation by the CTRS who then monitored her vitals the entire time, heart rate, blood pressure and pulse ox, started with the EGD, placing scope down the mouth through the esophagus into the stomach. Upon entering the stomach, noted some gastritis and what looked like an ulcer in the duodenum and pushed past this area and the rest of the duodenum looked fine. Pulled back. Still had like a lot of ulcers, but did not see a large ulceration or any sign of bleeding or vessels, took a picture and then did a biopsy of the antrum. Retroflexed the scope, saw a small hiatal hernia and then pulled up into the GE junction, did a biopsy of the GE junction, then pushed back down, suctioned all the air out of stomach, then pulled the scope up the esophagus and out the mouth. At this point, then the patient was sterilely prepped and draped and placed supine in her bed. Head rotated little bit to the right. Local lidocaine was used to infiltrate below this mass that was under the skin on the left portion of the scalp and forehead. An elliptical incision was made. It measured 3.4 x 1.2 cm going down to the skin into the subcutaneous fat and it was just above the galea. After first infiltrating the skin with local lidocaine, then made an incision with #15 blade, carried down through the skin and subcutaneous tissue, deepened down to subcutaneous tissue with Bovie electrocautery. I able to then remove this mass, en bloc and passed off the table. Copiously irrigated with normal saline. Hemostasis obtained using Bovie electrocautery and elected to close the incision with 3 interrupted 4-0 undyed Monocryl simple subcuticular stitches. Area was cleaned and dried. Dermabond placed, skin Affix as well as a dressing. The patient tolerated the procedure, transferred to recovery room in stable condition. Sponge, instrument and needle counts correct at the end of the case. Job ID: [id number] DocumentID: [id number] Dictated Date: 02/16/2020 15:55:11 Shade Cutter Date: 02/16/2020 22:45:46 Dictated By: JOHNNIE AHUJA DO
== END 2020-02-16 13:50 | disposition home or self-care (01) ==
LOC: SDC 09:00
PROVIDERS: ATTEND Surgery
DX: K44.9 Diaphragmatic hernia without obstruction or gangrene (principal); K29.50 Unspecified chronic gastritis without bleeding; C44.319 Basal cell carcinoma of skin of other parts of face; K26.9 Duodenal ulcer, unspecified as acute or chronic, without hemorrhage or perforation; I10 Essential (primary) hypertension; M06.9 Rheumatoid arthritis, unspecified; G89.29 Other chronic pain; K58.9 Irritable bowel syndrome, unspecified; D48.5 Neoplasm of uncertain behavior of skin; Z79.899 Other long term (current) drug therapy; Z80.9 Family history of malignant neoplasm, unspecified
CPT/HCPCS: 87081; 88305; 88342

== ENCOUNTER 2020-04-01 05:30 | Outpatient (RCR) | payer BC ==
[~2020-04-01] VITALS: Ht 170.2 cm; Wt 73.6 kg
[~2020-04-01 05:30] MED LIST changes: +ACET325C7 PO; +PANT40TA52 PO; +SUCR1TAB PO
== END 2020-04-01 13:40 | disposition home or self-care (01) ==
LOC: PREOP 05:30
PROVIDERS: ATTEND Surgery
DX: Z01.812 Encounter for preprocedural laboratory examination (principal); K92.2 Gastrointestinal hemorrhage, unspecified; Z20.822 Contact with and (suspected) exposure to COVID-19
CPT/HCPCS: 87635

== ENCOUNTER 2020-04-05 06:54 | Day surgery (SDC) | payer BC ==
[~2020-04-05] VITALS: Ht 170 cm; Wt 74.0 kg
[~2020-04-05 06:54] MED LIST changes: -CIPR500T4 PO; +CIPR500T5 PO
[2020-04-05] MEDS ORDERED: LACTATED RINGERS 1,000 ML IV STA (07:03)
[2020-04-05] MEDS ORDERED: HURRICAINE EXT TUBE (BENZOCAINE) XX PRN (07:15)
[2020-04-05 07:24] VITALS: BP 132/63
[2020-04-05] MEDS ORDERED: PROPOFOL INJECTION 0 ML IV ONE (07:34)
[2020-04-05] MEDS ORDERED: MIDAZOLAM 2 MG/2 ML (VERSED) VIAL ONE (07:36)
[2020-04-05] MEDS ORDERED: proPOfol 200 MG/20 ML (DIPRIVAN) VIAL IV ONE (07:41)
[2020-04-05] MEDS ORDERED: HURRICAINE EXT TUBE (BENZOCAINE) ONE (08:20)
--- NOTE | 2020-04-05 08:26 | Progress Note-Pre Operative ---
Pre-Operative Progress Note H&P Reviewed The H&P was reviewed, patient examined and no changes noted. Time Seen by Provider: 08:16 Date H&P Reviewed: Apr 05, 2020 Time H&P Reviewed: 08:17 Pre-Operative Diagnosis: Hx of Bleeding duodenal ulcer SELVIN GEORGES DO Apr 05, 2020 08:26
[2020-04-05 08:35] VITALS: BP 121/60
--- NOTE | 2020-04-05 08:38 | Progress Note-Post Operative ---
Post-Operative Progess Note Surgeon (s)/High School Combination Teacher (s) Surgeon SELVIN GEORGES DO High School Combination Teacher: none Pre-Operative Diagnosis Hx of Bleeding duodenal ulcer Post-Operative Diagnosis Gastritis Esophagitis Procedure & Operative Findings Date of Procedure 04/05/20 Procedure Performed/Findings EGD with bx Anesthesia Type IV sedation by DIRECTOR OF PLAYER PERSONNEL Estimated Blood Loss Estimated blood loss (mL): scant Specimens/Packing Specimens Removed antral bx GE jxn bx SELVIN GEORGES DO Apr 05, 2020 08:38
--- NOTE | 2020-04-05 08:39 | Endoscopy Discharge Instruct ---
Endo Procedure/Findings Findings 1.: Duodenal Ulcer 2.: Stewart's Esophagus Discharge Instructions - Activity: You might feel a little sleepy until tomorrow. This is due to the medicine you received to relax you. Until tomorrow, you should: NOT drive a car, operate machinery or power tools. NOT drink any alcoholic beverages. NOT make any important decisions or sign importortant papers. Do not return to work until tomorrow, unless otherwise instructed. Resume previous activities tomorrow. Diet: Start by taking liquids. If you tolerate liquids, advance to solid food. 1.: EGD in 1 year Notify Physician - If you experience excessive bleeding, unusual abdominal pain, fever, or chest pain, contact your doctor immediately. SELVIN GEORGES DO Apr 05, 2020 08:39
[2020-04-05 08:40] VITALS: BP 127/56
[2020-04-05 09:00] VITALS: BP 147/64
[2020-04-05 09:15] VITALS: BP 147/64
--- NOTE | 2020-04-05 11:58 | Anesthesia-General Post-Op ---
MAC Patient Condition Mental Status/LOC: Same as Preop Cardiovascular: Satisfactory Nausea/Vomiting: Absent Respiratory: Satisfactory Pain: Controlled Complications: Absent Post Op Complications Complications None Follow Up Care/Instructions Patient Instructions None needed. Anesthesiology Discharge Order Discharge Order Patient is doing well, no complaints, stable vital signs, no apparent adverse anesthesia problems. No complications reported per nursing. ERICA LO CRNA Apr 05, 2020 11:58
--- NOTE | 2020-04-05 22:48 | OPERATIVE REPORT ---
DATE OF SERVICE: 04/05/2020 PREOPERATIVE DIAGNOSES: History of duodenal ulcer. POSTOPERATIVE DIAGNOSES: Gastritis, esophagitis. PROCEDURE: EGD with biopsy. SURGEON: Johnnie Ahuja DO TRANSPORTATION ANALYST: None. ANESTHESIA: IV sedation by the ROLL PLUGGER MACHINE OPERATOR. SPECIMEN: Biopsy of the antrum, biopsy of the GE junction. BLOOD LOSS: Scant. FLUIDS: Per anesthesia. POSTOPERATIVE CONDITION: Stable. INDICATION FOR PROCEDURE: The patient is a 64-year-old female who has a history of duodenal ulcer with bleeding and had a repaired and still had inflammation during last EGD. FINDINGS: The patient had some mild gastritis and esophagitis, but did not see any inflammation in the duodenum. PROCEDURE NOTE: After informed consent was obtained, the patient was brought to the endoscopy suite, placed in bed in left lateral decubitus position. She was administered IV sedation by the ROLL PLUGGER MACHINE OPERATOR who then monitored her vitals the entire time, heart rate, blood pressure and pulse ox and the scope was inserted down the mouth through the esophagus and into the stomach. On the way through the esophagus, noted some esophagitis, took a picture. Pushed in and then pushed towards the antrum, looked like there was some mild gastritis, took a picture, pushed into the duodenum, able to get the second and third portion, looked good. There did not appear to be any inflammation right at the opening where the previous repair was; pulled back, did a biopsy of the antrum, then retroflexed the scope, questionable small hiatal hernia and then pulled the scope up into the GE junction, did a biopsy, then suctioned all the air out of the stomach and pulled the scope up the esophagus out of the mouth. The patient tolerated the procedure. She was recovered in endoscopy suite. Job ID: [id number] DocumentID: [id number] Dictated Date: 04/05/2020 18:29:52 Physical Therapy Manager Date: 04/05/2020 22:47:19 Dictated By: JOHNNIE AHUJA DO
== END 2020-04-05 09:15 | disposition home or self-care (01) ==
LOC: ENDO 06:54
PROVIDERS: ATTEND Surgery
DX: K29.50 Unspecified chronic gastritis without bleeding (principal); K20.90 Esophagitis, unspecified without bleeding; I10 Essential (primary) hypertension; M19.90 Unspecified osteoarthritis, unspecified site; C44.319 Basal cell carcinoma of skin of other parts of face; K26.4 Chronic or unspecified duodenal ulcer with hemorrhage; Z79.899 Other long term (current) drug therapy; Z80.9 Family history of malignant neoplasm, unspecified
CPT/HCPCS: 88305; 88342

== ENCOUNTER 2020-12-01 05:31 | Outpatient (RCR) | payer BC ==
[~2020-12-01] VITALS: Ht 170 cm; Wt 65.6 kg
== END 2020-12-01 11:15 | disposition home or self-care (01) ==
LOC: PREOP 05:31
PROVIDERS: ATTEND Surgery
DX: Z01.812 Encounter for preprocedural laboratory examination (principal); Z20.822 Contact with and (suspected) exposure to COVID-19
CPT/HCPCS: 87635

== ENCOUNTER 2020-12-06 07:09 | Day surgery (SDC) | payer MEDICARE ==
[~2020-12-06] VITALS: Ht 170 cm; Wt 65.6 kg
[~2020-12-06 07:09] MED LIST changes: +LACTATED RINGERS 1,000 ML IV STA
[2020-12-06] MEDS ORDERED: HURRICAINE EXT TUBE (BENZOCAINE) XX PRN (07:15)
[2020-12-06] MEDS ORDERED: LACTATED RINGERS 1,000 ML IV ONE (07:21)
[2020-12-06 07:36] VITALS: BP 154/88
[2020-12-06] MEDS ORDERED: proPOfol 200 MG/20 ML (DIPRIVAN) VIAL IV ONE ×2 (07:37→08:28)
[2020-12-06] MEDS ORDERED: MIDAZOLAM 2 MG/2 ML (VERSED) VIAL ONE (07:37)
[2020-12-06] MEDS ORDERED: LEVO500T80 PO (07:39)
[2020-12-06] MEDS ORDERED: FLUT9.9S16 NS (07:40)
[2020-12-06] MEDS ORDERED: LATA5DRO OU (07:40)
[2020-12-06 08:35] VITALS: BP 140/73
--- NOTE | 2020-12-06 08:36 | Progress Note-Post Operative ---
Post-Operative Progess Note Surgeon (s)/Drug Safety Physician (s) Surgeon SELVIN GEORGES DO Drug Safety Physician: none Pre-Operative Diagnosis Hx of Bleeding duodenal ulcer Post-Operative Diagnosis Gastritis Very small hiatal hernia esophagitis r/o Stewart's Procedure & Operative Findings Date of Procedure 12/06/20 Procedure Performed/Findings EGD with bx PROCEDURE NOTE: After informed consent was obtained, the patient was brought to the endoscopy suite, placed in bed in left lateral decubitus position. She was administered IV sedation by the ACCOUNT GROUP SUPERVISOR who then monitored vitals the entire time, heart rate, blood pressure and pulse ox and the scope was inserted down the mouth through the esophagus into the stomach. On the way down, noted some esophagitis; took a picture and pushed into the stomach. Saw some pretty severe gastritis and took a picture. Pushed past the antrum into the duodenum. Duodenum looked good, did not see any ulcers or signs of ulcers. Pulled back and did a biopsy of antrum, then retroflexed the scope, saw very tiny hiatal hernia, took a picture of this. Then pulled the scope into the GE junction and then did a biopsy of the GE junction. Pushed the scope back into the stomach, suctioned all the air out of the stomach. At this point pulled the scope up the esophagus and out the mouth. The patient tolerated the procedure, and she recovered in endoscopy suite. Anesthesia Type IV sedation by ACCOUNT GROUP SUPERVISOR Estimated Blood Loss Estimated blood loss (mL): scant Specimens/Packing Specimens Removed antral bx GE jx bx SELVIN GEORGES DO Dec 06, 2020 08:36
--- NOTE | 2020-12-06 08:37 | Endoscopy Discharge Instruct ---
Endo Procedure/Findings Findings 1.: Gastritis 2.: Hiatal Hernia 3.: Stewart's Esophagus (possibly) Discharge Instructions - Activity: You might feel a little sleepy until tomorrow. This is due to the medicine you received to relax you. Until tomorrow, you should: NOT drive a car, operate machinery or power tools. NOT drink any alcoholic beverages. NOT make any important decisions or sign importortant papers. Do not return to work until tomorrow, unless otherwise instructed. Resume previous activities tomorrow. Diet: Start by taking liquids. If you tolerate liquids, advance to solid food. 1.: EGD in 1 year Notify Physician - If you experience excessive bleeding, unusual abdominal pain, fever, or chest pain, contact your doctor immediately. SELVIN GEORGES DO Dec 06, 2020 08:37
[2020-12-06 08:38] VITALS: BP 139/74
[2020-12-06 09:03] VITALS: BP 172/68
--- NOTE | 2020-12-06 10:49 | Anesthesia-General Post-Op ---
MAC Patient Condition Mental Status/LOC: Same as Preop Cardiovascular: Satisfactory Nausea/Vomiting: Absent Respiratory: Satisfactory Pain: Controlled Complications: Absent Post Op Complications Complications None Follow Up Care/Instructions Patient Instructions None needed. Anesthesiology Discharge Order Discharge Order Patient is doing well, no complaints, stable vital signs, no apparent adverse anesthesia problems. No complications reported per nursing. ERICA LO CRNA Dec 06, 2020 10:49
== END 2020-12-06 09:08 | disposition home or self-care (01) ==
LOC: ENDO 07:09
PROVIDERS: ATTEND Surgery
DX: K29.50 Unspecified chronic gastritis without bleeding (principal); K44.9 Diaphragmatic hernia without obstruction or gangrene; K21.00 Gastro-esophageal reflux disease with esophagitis, without bleeding; I10 Essential (primary) hypertension; M19.90 Unspecified osteoarthritis, unspecified site; M54.50 Low back pain, unspecified; Z79.899 Other long term (current) drug therapy; Z79.891 Long term (current) use of opiate analgesic; Z80.0 Family history of malignant neoplasm of digestive organs; Z80.42 Family history of malignant neoplasm of prostate
CPT/HCPCS: 88305; 88342

== ENCOUNTER 2020-12-07 17:34 | Observation (INO) | payer MEDICARE ==
[~2020-12-07] VITALS: Ht 170 cm; Wt 75.7 kg
[~2020-12-07 17:34] MED LIST changes: +FLUT9.9S16 NS; -LACTATED RINGERS 1,000 ML IV STA; +LATA5DRO OU; +LEVO500T80 PO
[2020-12-07 18:11] LABS: BASOPHILS % (AUTO) 0 % (0-10); EOSINOPHILS # (AUTO) 0.2 10^3/uL (0.0-0.3); EOSINOPHILS % (AUTO) 5 % (0-10); HEMATOCRIT 38 % (35-52); HEMOGLOBIN 13.3 g/dL (11.5-16.0); LYMPHOCYTES # (AUTO) 0.3 10^3/uL (1.0-4.0); LYMPHOCYTES % (AUTO) 7 % (12-44); MEAN CORPUSCULAR HEMOGLOBIN 33 pg (25-34); MEAN CORPUSCULAR HGB CONC 35 g/dL (32-36); MEAN CORPUSCULAR VOLUME 95 fL (80-99); MEAN PLATELET VOLUME 9.2 fL (9.0-12.2); MONOCYTES # (AUTO) 0.3 10^3/uL (0.0-1.0); MONOCYTES % (AUTO) 6 % (0-12); NEUTROPHILS # (AUTO) 3.8 10^3/uL (1.8-7.8); NEUTROPHILS % (AUTO) 82 % (42-75); PLATELET COUNT 238 10^3/uL (130-400); WHITE BLOOD COUNT 4.6 10^3/uL (4.3-11.0)
[2020-12-07 18:21] LABS: ALBUMIN 4.3 GM/DL (3.2-4.5)
[2020-12-07 18:22] LABS: POTASSIUM 4.1 MMOL/L (3.6-5.0)
[2020-12-07 18:23] LABS: CALCIUM 9.1 MG/DL (8.5-10.1)
[2020-12-07 18:24] LABS: TOTAL PROTEIN 6.9 GM/DL (6.4-8.2)
[2020-12-07 18:28] LABS: CREATININE SERUM 0.6 MG/DL (0.60-1.30)
[2020-12-07 18:30] LABS: EOSINOPHILS % (MANUAL) 2 %; LYMPHOCYTES % (MANUAL) 4 %; MAGNESIUM 1.6 MG/DL (1.6-2.4); MONOCYTES % (MANUAL) 8 %; NEUTROPHILS % (MANUAL) 86 %; RBC MORPH NORMAL
[2020-12-07] MEDS ORDERED: ONDANSETRON 4 MG/2 ML (SDV) Z0FRAN IVP ONE (18:30)
[2020-12-07] MEDS ORDERED: LACTATED RINGERS 1,000 ML IV ONE ×2 (18:30→21:30)
[2020-12-07 18:42] LABS: PROTHROMBIN TIME PATIENT 13.7 SEC (12.2-14.7)
[2020-12-07 18:50] LABS: LIPASE 25 U/L (8-78)
[2020-12-07 18:51] LABS: CREATINE KINASE 56 U/L (29-168)
[2020-12-07 19:22] LABS: BILIRUBIN,URINE NEGATIVE (NEGATIVE); CLARITY,URINE CLEAR; COLOR,URINE YELLOW; GLUCOSE, URINE (UA) NEGATIVE (NEGATIVE); KETONES,URINE TRACE (NEGATIVE); LEUKOCYTE ESTERASE ,URINE NEGATIVE (NEGATIVE); NITRITE,URINE NEGATIVE (NEGATIVE); PH,URINE 6.5 (5-9); PROTEIN,URINE NEGATIVE (NEGATIVE)
[2020-12-07 19:31] LABS: BACTERIA,URINE NEGATIVE /HPF; RBC,URINE 0-2 /HPF; WBC,URINE 0-2 /HPF
--- NOTE | 2020-12-07 20:08 | Diagnostic Imaging Report ---
INDICATION: Head pain, shortness of air, dizziness. It is compared 12/16/2019. FINDINGS: The lungs are clear. No failure, effusion or pneumothorax. No free air beneath the diaphragms. IMPRESSION: No acute appearing abnormality. Dictated by: Dictated on workstation # [id number]
--- NOTE | 2020-12-07 20:12 | ED General ---
General Chief Complaint: General Problems/Pain Stated Complaint: DX WITH SINUS INFECTION/WEAKNESS/ N/V /SOB Nursing Triage Note: pt presents to ed with complaints of dizziness, fatigue, cheema, n/v/d, and soa. pt reports she was tested for covid and strep last sunday and tested negative. pt reports she was diagnosed with a sinus infection and prescibed levaquin 500 mg. pt reports she started having diahrrea after starting it. pt states she had an egd yesterday to a check up on a ulcer. pt reports she also got her flu shot yesterday. Source of Information: Patient, Old Records Exam Limitations: No Limitations History of Present Illness Date Seen by Provider: Dec 07, 2020 Time Seen by Provider: 17:59 Initial Comments This is 64-year-old woman presents to the emergency room with complaints of nausea, vomiting, diarrhea, headache, generalized myalgia, shortness of breath, sore throat, generalized abdominal pain and cramping, and extreme weakness. She was not able to walk into the ER and required a wheelchair. She arrives by private vehicle. She has not been feeling well for about 2 weeks. She has been tested twice for COVID-19, the second time being December 01. The second test was a preoperative test for an EGD she had yesterday with Dr. Ahuja. The EGD procedure was performed without complication according to her report. Dr. Ahuja's report notes diagnoses of esophagitis, gastritis, and duodenal ulcer. She has been on Protonix and Carafate. She is noted to be quite hypertensive as she reports of being unable to take her losartan today. She typically takes losartan 100 mg in the morning. She is afebrile and vital signs are otherwise stable. Allergies and Home Medications Allergies Coded Allergies: No Known Drug Allergies (Unverified , 02/11/20) Patient Home Medication List Home Medication List Reviewed: Yes Fluticasone Furoate (Flonase Sensimist) 5.9 Ml [place].susp, 5.9 ML NS, (Reported) Entered as Reported by: CLAUDIA GRAHAM on 12/06/20 07 Latanoprostene Bunod (Vyzulta) 5 Ml Drops, 5 ML OP DAILY, (Reported) Entered as Reported by: CLAUDIA GRAHAM on 12/06/20 07 Levofloxacin (Levofloxacin) 500 Mg Tablet, 500 MG PO DAILY, (Reported) Entered as Reported by: CLAUDIA GRAHAM on 12/06/20 0739 Losartan Potassium (Losartan Potassium) 100 Mg Tablet, 100 MG PO DAILY, (Reported) Entered as Reported by: RADHA KOO on 10/25/16 0937 Pantoprazole Sodium (Pantoprazole Sodium) 40 Mg Tablet.dr, 40 MG PO DAILY, (Reported) Entered as Reported by: CINDY CHRISTENSEN on 03/29/20 1253 Paroxetine HCl (Paroxetine HCl) 20 Mg Tablet, 20 MG PO HS, (Reported) Entered as Reported by: RADHA KOO on 10/25/16 0937 Sucralfate (Sucralfate) 1 Gm Tablet, 1 GM PO QID, (Reported) Entered as Reported by: CINDY CHRISTENSEN on 03/29/20 1253 Review of Systems Review of Systems Constitutional: see HPI EENTM: see HPI Respiratory: see HPI Cardiovascular: see HPI Gastrointestinal: see HPI Genitourinary: no symptoms reported : No Musculoskeletal: see HPI Skin: no symptoms reported Psychiatric/Neurological: See HPI Past Zfnrzdj-[id number]-Uxtwjk Hx Patient Social History Tobacco Use?: No Substance use?: No Alcohol Use?: Yes Alcohol Frequency: Once in a while Pt feels they are or have been: No Immunizations Up To Date First/Initial COVID19 Vaccinat: 04/2020 Second COVID19 Vaccination Sami: 05/2020 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: valerie Seasonal Allergies Seasonal Allergies: Yes Past Medical History Surgery/Hospitalization HX: pmh: htn, ibs, gastric ulcer, gerd, sx: bleeding ulcer repair, hyst, Surgeries: Yes (LAPAROTOMY-BLEEDING ULCER/INFECTION) Hysterectomy, Tonsillectomy Respiratory: No Currently Using CPAP: No Currently Using BIPAP: No Cardiac: Yes Hypertension Neurological: No 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 Sexually Transmitted Disease: No HIV/AIDS: No Genitourinary: No Gastrointestinal: Yes (BLEEDING ULCER/GASTROINTESTINAL BLEED) Ulcer, Irritable Bowel Musculoskeletal: Yes Arthritis, Chronic Back Pain Endocrine: No HEENT: Yes (READING GLASSES) Loss of Vision: Denies Hearing Impairment: Denies Cancer: No (SKIN CANCER ON FOREHEAD) Skin, Penile Psychosocial: Yes (TAKES PAROXITINE FOR IRR BOWEL) Integumentary: No Blood Disorders: No Adverse Reaction/Blood Tranf: No (HAS HAD BLOOD WITH NO REACTION) Family Medical History Cancer, Hypertension Physical Exam Vital Signs Vital Signs - First Documented 12/07/20 17:44 Temp 36.9 Pulse 92 Resp 16 B/P (MAP) 193/106 (135) Pulse Ox 98 Capillary Refill : Less Than 3 Seconds Height, Weight, BMI Height: 5'7.00" Weight: 182lbs. 0.0oz. [id number]; 26.00 BMI Method: General Appearance: WD/WN, Moderate Distress HEENT: PERRL/EOMI, TMs Normal, Normal ENT Inspection, Other (There is an erythematous dark lesion on the right side of the pharynx is suggestive of a contusion.) Neck: Normal Inspection; No JVD Respiratory: Lungs Clear, Normal Breath Sounds, No Accessory Muscle Use, No R espiratory Distress, Other (Tachypneic) Cardiovascular: Regular Rate, Rhythm, No Edema, No Murmur Gastrointestinal: Normal Bowel Sounds, Soft; No Distended; Tenderness (Generalized, mild to moderate) Extremity: Normal Inspection, No Calf Tenderness, No Pedal Edema Neurologic/Psychiatric: Alert, Oriented x3, No Motor/Sensory Deficits, Normal 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, 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 as Tested Skin: Normal Color, Warm/Dry Focused Exam Lactate Level 12/07/20 18:13: Lactic Acid Level 1.29 Lactic Acid Level Laboratory Tests Test 12/07/20 18:13 Lactic Acid Level 1.29 MMOL/L (0.50-2.00) Procedures/Interventions Date of ETT Placement: Dec 15, 2019 Time of ETT Placement: 2300 Progress/Results/Core Measures Suspected Sepsis SIRS Temperature: Pulse: 92 Respiratory Rate: 16 Laboratory Tests 12/07/20 18:00: White Blood Count 4.6 Blood Pressure 193 /106 Mean: 135 12/07/20 18:13: Lactic Acid Level 1.29 Laboratory Tests 12/07/20 18:00: Creatinine 0.60, INR Comment 1.0, Platelet Count 238, Total Bilirubin 1.0 Results/Orders Lab Results Laboratory Tests Test 12/07/20 09:16 12/07/20 18:00 12/07/20 18:13 12/07/20 18:48 Range/Units Urine Color YELLOW Urine Clarity CLEAR Urine pH 6.5 5-9 Urine Specific [place] <=1.005 1.016-1.022 Urine Protein NEGATIVE NEGATIVE Urine Glucose (UA) NEGATIVE NEGATIVE Urine Ketones TRACE H NEGATIVE Urine Nitrite NEGATIVE NEGATIVE Urine Bilirubin NEGATIVE NEGATIVE Urine Urobilinogen 0.2 < = 1.0 MG/DL Urine Leukocyte Esterase NEGATIVE NEGATIVE Urine RBC (Auto) NEGATIVE NEGATIVE Urine RBC 0-2 /HPF Urine WBC 0-2 /HPF Urine Squamous Epithelial Cells NONE /HPF Urine Renal Epithelial Cells NONE /HPF Urine Crystals NONE /LPF Urine Bacteria NEGATIVE /HPF Urine Casts NONE /LPF Urine Mucus NEGATIVE /LPF Urine Culture Indicated CULTURE PENDING White Blood Count 4.6 4.3-11.0 10^3/uL Red Blood Count 4.01 3.80-5.11 10^6/uL Hemoglobin 13.3 11.5-16.0 g/dL Hematocrit 38 35-52 % Mean Corpuscular Volume 95 80-99 fL Mean Corpuscular Hemoglobin 33 25-34 pg Mean Corpuscular Hemoglobin Concent 35 32-36 g/dL Red Cell Distribution Width 11.5 10.0-14.5 % Platelet Count 238 130-400 10^3/uL Mean Platelet Volume 9.2 9.0-12.2 fL Immature Granulocyte % (Auto) 0 % Neutrophils (%) (Auto) 82 H 42-75 % Lymphocytes (%) (Auto) 7 L 12-44 % Monocytes (%) (Auto) 6 0-12 % Eosinophils (%) (Auto) 5 0-10 % Basophils (%) (Auto) 0 0-10 % Neutrophils # (Auto) 3.8 1.8-7.8 10^3/uL Lymphocytes # (Auto) 0.3 L 1.0-4.0 10^3/uL Monocytes # (Auto) 0.3 0.0-1.0 10^3/uL Eosinophils # (Auto) 0.2 0.0-0.3 10^3/uL Basophils # (Auto) 0.0 0.0-0.1 10^3/uL Immature Granulocyte # (Auto) 0.0 0.0-0.1 10^3/uL Neutrophils % (Manual) 86 % Lymphocytes % (Manual) 4 % Monocytes % (Manual) 8 % Eosinophils % (Manual) 2 % Blood Morphology Comment NORMAL Prothrombin Time 13.7 12.2-14.7 SEC INR Comment 1.0 0.8-1.4 Activated Partial Thromboplast Time 30 24-35 SEC Sodium Level 132 L 135-145 MMOL/L Potassium Level 4.1 3.6-5.0 MMOL/L Chloride Level 99 98-107 MMOL/L Carbon Dioxide Level 20 L 21-32 MMOL/L Anion Gap 13 5-14 MMOL/L Blood Urea Nitrogen 8 7-18 MG/DL Creatinine 0.60 0.60-1.30 MG/DL Estimat Glomerular Filtration Rate 101 BUN/Creatinine Ratio 13 Glucose Level 106 H 70-105 MG/DL Calcium Level 9.1 8.5-10.1 MG/DL Corrected Calcium 8.9 8.5-10.1 MG/DL Magnesium Level 1.6 1.6-2.4 MG/DL Total Bilirubin 1.0 0.1-1.0 MG/DL Aspartate Amino Transf (AST/SGOT) 39 H 5-34 U/L Alanine Aminotransferase (ALT/SGPT) 19 0-55 U/L Alkaline Phosphatase 80 40-136 U/L Total Creatine Kinase 56 29-168 U/L C-Reactive Protein High Sensitivity 0.24 0.00-0.50 MG/DL Total Protein 6.9 6.4-8.2 GM/DL Albumin 4.3 3.2-4.5 GM/DL Lipase 25 8-78 U/L TSH [place] Testing 0.52 0.35-4.94 UIU/ML Lactic Acid Level 1.29 0.50-2.00 MMOL/L Influenza Type A Antigen NEGATIVE NEGATIVE Influenza Type B Antigen NEGATIVE NEGATIVE SARS-CoV-2 RNA (RT-PCR) Not Detected Not Detecte Troponin I < 0.028 <0.028 NG/ML B-Type Natriuretic Peptide 28.0 <100.0 PG/ML Test 12/07/20 19:00 12/07/20 20:13 Range/Units D-Dimer 0.35 0.00-0.49 UG/ML Group A Streptococcus Screen NEGATIVE NEGATIVE My Orders Orders - HAYDEE CHANCE MD Cbc With Automated Diff (12/07/20 17:59) Comprehensive Metabolic Panel (12/07/20 17:59) Hs C Reactive Protein (12/07/20 17:59) Magnesium (12/07/20 17:59) Ua Culture If Indicated (12/07/20 17:59) Ed Iv/Invasive Line Start (12/07/20 17:59) Manual Differential (12/07/20 18:00) Influenza A & B Antigens (12/07/20 18:28) Blood Culture (12/07/20 18:28) Sputum Culture (12/07/20 18:28) Urinalysis (12/07/20 18:28) Urine Culture (12/07/20 18:28) Protime With Inr (12/07/20 18:) Partial Thromboplastin Time (12/07/20 18:28) Vital Signs Adult Sepsis Patie Q15M (12/07/20 18:28) O2 (12/07/20 18:28) Remove Rings In Anticipation O (12/07/20 18:28) Lactic Acid Analyzer (12/07/20 18:28) Creatine Kinase (12/07/20 18:28) Lipase (12/07/20 18:28) Ondansetron Injection (Zofran Injectio (12/07/20 18:30) Lactated Ringers (Lr 1000 Ml Iv Solution (12/07/20 18:30) Chest 1 View, Ap/Pa Only (12/07/20 19:02) Ekg Tracing (12/07/20 19:03) Ed Iv/Invasive Line Start (12/07/20 19:03) BNP (12/07/20 19:03) Troponin I (12/07/20 19:03) Covid 19 Inhouse Test (12/07/20 19:04) Thyroid Analyzer (12/07/20 20:05) Fibrin Degradation Products (12/07/20 20:12) Fentanyl Inj (Sublimaze Injection) (12/07/20 20:30) Rapid Strep A Screen (12/07/20 20:23) Ct Abdomen/Pelvis W (12/07/20 20:30) Iohexol Injection (Omnipaque 350 Mg/Ml 1 (12/07/20 20:45) Received Contrast (Hold Metformin- Contr (12/07/20 20:45) Ns (Ivpb) (Sodium Chloride 0.9% Ivpb Bag (12/07/20 20:45) Morphine Injection (Morphine Injection (12/07/20 21:30) Promethazine Injection (Phenergan Injec (12/07/20 21:30) Lactated Ringers (Lr 1000 Ml Iv Solution (12/07/20 21:30) Labetalol Injection (Normodyne Injection (12/07/20 21:30) Pantoprazole Injection (Protonix Injecti (12/07/20 21:45) Procalcitonin (Pct) (12/07/20 21:37) Manual Differential (12/07/20 21:37) Morphine Injection (Morphine Injection (12/07/20 21:39) Medications Given in ED Current Medications Medications Dose Ordered Sig/Beto Route Start Time Stop Time Status Last Admin Dose Admin Fentanyl Citrate 50 mcg ONCE ONCE IVP 12/07/20 20:30 12/07/20 20:31 DC 12/07/20 20:29 50 MCG Iohexol 100 ml ONCE ONCE IV 12/07/20 20:45 12/07/20 20:46 DC 12/07/20 20:51 100 ML Labetalol HCl 10 mg ONCE ONCE IV 12/07/20 21:30 12/07/20 21:31 DC 12/07/20 21:47 10 MG Lactated Ringer's 1,000 ml @ 0 mls/hr Q0M ONCE IV 12/07/20 18:30 12/07/20 18:31 DC 12/07/20 18:37 0 MLS/HR Lactated Ringer's 1,000 ml @ 0 mls/hr Q0M ONCE IV 12/07/20 21:30 12/07/20 21:31 DC 12/07/20 21:46 0 MLS/HR Ondansetron HCl 8 mg ONCE ONCE IVP 12/07/20 18:30 12/07/20 18:31 DC 12/07/20 18:38 8 MG Promethazine HCl 12.5 mg ONCE ONCE IVP 12/07/20 21:30 12/07/20 21:31 DC 12/07/20 21:46 12.5 MG Sodium Chloride 100 ml ONCE ONCE IV 12/07/20 20:45 12/07/20 20:46 DC 12/07/20 20:51 80 ML Vital Signs/I&O 12/07/20 17:44 Temp 36.9 Pulse 92 Resp 16 B/P (MAP) 193/106 (135) Pulse Ox 98 Capillary Refill : Less Than 3 Seconds Blood Pressure Mean: 135 Progress Note : Time: 22:16 Progress Note Patient had an extensive work-up in the emergency department in a stepwise fashion. Sepsis was ruled out as there was no source of bacterial infection identified and labs and vital signs were not consistent with bacterial infection. Influenza, COVID-19, and rapid strep swabs were all negative. The COVID-19 swab was added due to the relative lymphopenia. IV fluids were inf used. Nausea was initially treated with Zofran and Phenergan was later added for refractory nausea. Pain was treated with fentanyl and morphine. I was concerned about her hypertension and she was given labetalol 10 mg IV when blood pressure did not improve much with pain control. Once she is able to tolerate oral medications, she is to take her morning dose of losartan. She is a Medicare patient on observation status and therefore will be permitted to take her home medications. Patient was unable to safely and independently walk due to extreme weakness, and this prompted her to the observation admission along with the nausea, vomiting, and diarrhea. Because of the tachypnea, a cardiac work-up was pursued including a D-dimer. Cardiac work-up was unremarkable. Ultimately, a CT of the abdomen and pelvis was obtained due to her history of duodenal ulcer and present abdominal pain without any other explanation for her symptoms. CT did not demonstrate any specific pathology to explain her constellation of symptoms. It was suspicious for enteritis. Patient is being admitted. We discussed CODE STATUS and she would like to remain full code at this time. I discussed the case with Dr. Hewitt. We will continue supportive care along with a GI regimen. Stool specimen will be obtained. She has been on Levaquin recently so we will include C. difficile with the stool studies. ECG Initial ECG Impression Date: Dec 07, 2020 Initial ECG Impression Time: 19:05 Initial ECG Rate: 95 Initial ECG Rhythm: Normal Sinus Comment Normal sinus rhythm with borderline tachycardia. No ST elevation or depression. No abnormal intervals or axis deviation. Diagnostic Imaging Plain Films/CT/US/NM/MRI: chest Comments Chest x-ray viewed by me and report reviewed. See report below: NAME: TELLO [facility]ON [facility] REC#: [id number] PT STATUS: REG ER : 1955 PHYSICIAN: HAYDEE CHANCE MD ADMIT DATE: 12/07/20/ER Draft Date of Exam:12/07/20 CHEST 1 VIEW, AP/PA ONLY INDICATION: Head pain, shortness of air, dizziness. It is compared 12/16/2019. FINDINGS: The lungs are clear. No failure, effusion or pneumothorax. No free air beneath the diaphragms. IMPRESSION: No acute appearing abnormality. Dictated on workstation # [id number] Dict: 12/07/202003 Trans: 12/07/[address] [place] [address] [phone] Interpreted by: AMANDA RODNEY Diagonstic Imaging: CT Plain Films/CT/US/NM/MRI: abdomen, pelvis Comments CT viewed by me and report reviewed. See report below: NAME: TELLO WESTON [facility] REC#: [id number] PT STATUS: REG ER : 1955 PHYSICIAN: HAYDEE CHANCE MD ADMIT DATE: 12/07/20/ER Draft Date of Exam:12/07/20 CT ABDOMEN/PELVIS W PROCEDURE: CT abdomen and pelvis with contrast. TECHNIQUE: Multiple contiguous axial images were obtained through the abdomen and pelvis after administration of intravenous contrast. Auto Exposure Controls were utilized during the CT exam to meet ALARA standards for radiation dose reduction. All CT scans use one or more of the following dose optimizing techniques: automated exposure control, MA and/or KvP adjustment based on patient size and exam type or iterative reconstruction. INDICATION: Nausea, vomiting, diarrhea, shortness of air with fatigue. Recent Covid. Sinus infection. COMPARED with study 01/13/2020. FINDINGS: There is an elevated intestinal fluid load throughout the length of the small bowel, mildly ectatic throughout but no transition zone. Increased fluid load extends into the colon all the way through the level of the sigmoid. This may reflect a hypermotile/diarrheal state but correlate for nonspecific enterocolitis. There was no significant small or large bowel wall thickening and there was no perienteric or pericolonic edema. No abnormal intestinal enhancement. No vascular obstruction or thrombus. No pneumatosis or free gas. No ascites, abscess, hematoma or acute fluid collection. The liver, gallbladder, bile ducts, spleen, adrenals and pancreas all unremarkable. The unobstructed kidneys normal. The aortoiliac and mesenteric vessels patent and nonaneurysmal. Urinary bladder unremarkable. There are old healed deformities to left medial pubic bone. IMPRESSION: Increased small and large bowel intestinal fluid load without transition zone or obstructive features. This may be mere hypermotile diarrheal state however nonspecific enterocolitis could not be excluded. No abscess, obstruction or perforation and no urinary tract or hepatobiliary abnormality found. Dictated on workstation # [id number] Dict: 12/07/202107 Trans: 12/07/202114 [facility] [phone] Interpreted by: AMANDA RODNEY Departure Communication (Admissions) Time/Spoke to Admitting Phy: 21:40 Dr. Hewitt Impression Primary Impression: Nausea vomiting and diarrhea Additional Impressions: Abdominal pain, generalized Uncontrolled hypertension Acute headache Qualified Codes: R51.9 - Headache, unspecified Generalized weakness Disposition: ADMITTED INPATIENT Condition: Improved Admissions Decision to Admit Reason: Admit from ER (General) Decision to Admit/Date: Dec 07, 2020 Time/Decision to Admit Time: 21:21 Departure-Patient Inst. Referrals: AUGUSTA MARTINEZ MD (PCP/Family) Primary Care Physician HAYDEE CHANCE MD Dec 07, 2020 20:12
[2020-12-07] MEDS ORDERED: fentaNYL INJ 100 MCG/2 ML AMP IVP ONE (20:30)
[2020-12-07] MEDS ORDERED: NS 100 ML (IVPB) BAG IV ONE (20:45)
[2020-12-07] MEDS ORDERED: HOLD METFORMIN - RECEIVED CONTRAST 20 ML VIAL IV SCH (20:45)
[2020-12-07] MEDS ORDERED: IOHEXOL 350 MG/ML 100 ML (OMNIPAQUE 350) VIAL IV ONE (20:45)
--- NOTE | 2020-12-07 21:16 | Diagnostic Imaging Report ---
PROCEDURE: CT abdomen and pelvis with contrast. TECHNIQUE: Multiple contiguous axial images were obtained through the abdomen and pelvis after administration of intravenous contrast. Auto Exposure Controls were utilized during the CT exam to meet ALARA standards for radiation dose reduction. All CT scans use one or more of the following dose optimizing techniques: automated exposure control, MA and/or KvP adjustment based on patient size and exam type or iterative reconstruction. INDICATION: Nausea, vomiting, diarrhea, shortness of air with fatigue. Recent Covid. Sinus infection. COMPARED with study 01/13/2020. FINDINGS: There is an elevated intestinal fluid load throughout the length of the small bowel, mildly ectatic throughout but no transition zone. Increased fluid load extends into the colon all the way through the level of the sigmoid. This may reflect a hypermotile/diarrheal state but correlate for nonspecific enterocolitis. There was no significant small or large bowel wall thickening and there was no perienteric or pericolonic edema. No abnormal intestinal enhancement. No vascular obstruction or thrombus. No pneumatosis or free gas. No ascites, abscess, hematoma or acute fluid collection. The liver, gallbladder, bile ducts, spleen, adrenals and pancreas all unremarkable. The unobstructed kidneys normal. The aortoiliac and mesenteric vessels patent and nonaneurysmal. Urinary bladder unremarkable. There are old healed deformities to left medial pubic bone. IMPRESSION: Increased small and large bowel intestinal fluid load without transition zone or obstructive features. This may be mere hypermotile diarrheal state however nonspecific enterocolitis could not be excluded. No abscess, obstruction or perforation and no urinary tract or hepatobiliary abnormality found. Dictated by: Dictated on workstation # [id number]
[2020-12-07] MEDS ORDERED: PROMETHAZINE INJ 25 MG/ML (PHENERGAN) AMP IVP ONE (21:30)
[2020-12-07] MEDS ORDERED: morphine INJ 4 MG/ML 1 ML (VIAL/SYRINGE) IVP ONE (21:30)
[2020-12-07] MEDS ORDERED: LABETALOL HCL 20 MG/4 ML VIAL IV ONE (21:30)
[2020-12-07] MEDS ORDERED: morphine INJ 10 MG/ML 1ML (SYR OR VIAL) IVP STA (21:39)
[2020-12-07] MEDS ORDERED: PANTOPRAZOLE 40 MG (PROTONIX) VIAL IV ONE (21:45)
[2020-12-07 22:42] VITALS: BP 158/76
[2020-12-07] MEDS ORDERED: PROMETHAZINE INJ 25 MG/ML (PHENERGAN) AMP IV PRN (23:15)
[2020-12-07] MEDS ORDERED: ONDANSETRON 4 MG/2 ML (SDV) Z0FRAN IV PRN (23:15)
[2020-12-07] MEDS ORDERED: morphine INJ 4 MG/ML 1 ML (VIAL/SYRINGE) IV PRN (23:15)
[2020-12-07 23:30] VITALS: BP 137/71
[2020-12-08] VITALS (7 sets, daily range): BP systolic 143–190; BP diastolic 65–94
[2020-12-08] MEDS: LACTATED RINGERS 1,000 ML IV SCH ×4 (00:07→13:11)
[2020-12-08] MEDS ORDERED: PATIENT MAY USE OWN MEDS, ALL MC SCH (01:15)
[2020-12-08 05:54] LABS: BASOPHILS % (AUTO) 1 % (0-10); EOSINOPHILS # (AUTO) 0.2 10^3/uL (0.0-0.3); EOSINOPHILS % (AUTO) 10 % (0-10); HEMATOCRIT 36 % (35-52); HEMOGLOBIN 12.2 g/dL (11.5-16.0); LYMPHOCYTES # (AUTO) 0.6 10^3/uL (1.0-4.0); LYMPHOCYTES % (AUTO) 28 % (12-44); MEAN CORPUSCULAR HEMOGLOBIN 33 pg (25-34); MEAN CORPUSCULAR HGB CONC 34 g/dL (32-36); MEAN CORPUSCULAR VOLUME 97 fL (80-99); MEAN PLATELET VOLUME 9.2 fL (9.0-12.2); MONOCYTES # (AUTO) 0.4 10^3/uL (0.0-1.0); MONOCYTES % (AUTO) 15 % (0-12); NEUTROPHILS # (AUTO) 1.1 10^3/uL (1.8-7.8); NEUTROPHILS % (AUTO) 46 % (42-75); PLATELET COUNT 187 10^3/uL (130-400); WHITE BLOOD COUNT 2.3 10^3/uL (4.3-11.0)
[2020-12-08] MEDS ORDERED: SUCRALFATE 1 GM (CARAFATE) TAB PO SCH (06:00)
[2020-12-08 06:10] LABS: ALBUMIN 3.7 GM/DL (3.2-4.5); POTASSIUM 3.1 MMOL/L (3.6-5.0)
[2020-12-08 06:11] LABS: CALCIUM 8.8 MG/DL (8.5-10.1)
[2020-12-08 06:13] LABS: TOTAL PROTEIN 5.8 GM/DL (6.4-8.2)
[2020-12-08 06:16] LABS: CREATININE SERUM 0.57 MG/DL (0.60-1.30)
[2020-12-08] MEDS ORDERED: LOSARTAN 100 MG (COZAAR) TABLET PO SCH (09:00)
[2020-12-08] MEDS ORDERED: PARoxetine 20 MG (PAXIL) TAB PO SCH (09:00)
[2020-12-08] MEDS ORDERED: PANTOPRAZOLE 40 MG (PROTONIX) TAB PO SCH (09:00)
[2020-12-08] MEDS ORDERED: FLUT16SP22 NSEACH (09:10)
[2020-12-08] MEDS ORDERED: ACET325T38 PO (09:10)
--- NOTE | 2020-12-08 11:37 | History & Physical-Hospitalist ---
History of Present Illness HPI/Chief Complaint Pt is a 64yoCF with a PMH of IBS who presented to the ER due to weakness, abdominal pain, nausea and vomiting. She states that everything started about 2 weeks ago when she was diagnosed with a sinus infection. She was started on Levaquin for this by her PCP. She then developed diarrhea. She was tested for COVID by her PCP and again the next day preop for an EGD. Both of these were negative. She had an EGD done on 12/06 to follow up on a previous GI bleed she had. Dr Ahuja did this EGD and recommended to stay off NSAIDs. She then went that afternoon to get her flu shot. Since then she has continued to worsen and was so weak she couldn't even walk. She had a CT abdomen which revealed possible enterocolitis. She was admitted due to weakness. This morning she states she is feeling better but is still not back to normal. She also has a headache. Source: patient Date Seen 12/08/20 Time Seen by a Provider: 11:37 Attending Physician Adama Hewitt MD PCP Akshat Calvillo MD Referring Physician Date of Admission Dec 07, 2020 at 21:44 Home Medications & Allergies Home Medications Reviewed patient Home Medication Reconciliation performed by pharmacy medication reconciliations clinical technician and/or nursing. Patients Allergies have been reviewed. Allergies Allergies Coded Allergies No Known Drug Allergies (Cwqozpfpim04/9/20) Past Kwmcwya-Oskhpj-Hzioja Hx Patient Social History Tobacco Use?: No Smoking Status: Never a Smoker Smokeless Tobacco Frequency: Never a User Use of E-Cig and/or Vaping dev: No Substance use?: No Alcohol Use?: Yes Alcohol Frequency: Rarely Pt feels they are or have been: No Immunizations Up To Date Date of Influenza Vaccine: Dec 08, 2019 First/Initial COVID19 Vaccinat: 04/2020 Second COVID19 Vaccination Sami: 05/2020 Date of Pneumonia Vaccine: Dec 08, 2019 Seasonal Allergies Seasonal Allergies: Yes Current Status Advance Directives: No Communicates: Verbally Primary Language: Iranian Preferred Spoken Language: Iranian Is interpretation needed?: No Implanted or Applied Medical D: None Past Medical History Surgeries: Hysterectomy, Tonsillectomy Currently Using CPAP: No Currently Using BIPAP: No Hypertension GL[employer]ER History: Hysterectomy Sexually Transmitted Disease: No HIV/AIDS: No Ulcer, Irritable Bowel Arthritis, Chronic Back Pain Loss of Vision: Denies Hearing Impairment: Denies Skin, Penile Blood Disorders: No Adverse Reaction/Blood Tranf: No (HAS HAD BLOOD WITH NO REACTION) Family Medical History Reviewed Nursing Family Hx Cancer, Hypertension Review of Systems Constitutional: No chills, No fever; malaise, weakness Respiratory: No cough, No short of breath Cardiovascular: No chest pain, No edema Gastrointestinal: abdominal pain, diarrhea, nausea, vomiting Genitourinary: no symptoms reported Musculoskeletal: no symptoms reported Skin: no symptoms reported Psychiatric/Neurological: No Symptoms Reported Physical Exam Physical Exam Vital Signs Vital Signs - First Documented 12/07/20 12/07/20 17:44 22:42 Temp 36.9 Pulse 92 Resp 16 B/P (MAP) 193/106 (135) Pulse Ox 98 O2 Delivery Room Air Capillary Refill : Less Than 3 Seconds Height, Weight, BMI Height: 5'7.00" Weight: 182lbs. 0.0oz. 82.964053ct; 26.19 BMI Method: General Appearance: No Apparent Distress, WD/WN HEENT: PERRL/EOMI, Moist Mucous Membranes Respiratory: Lungs Clear, No Accessory Muscle Use, No Respiratory Distress Cardiovascular: Regular Rate, Rhythm, No JVD, No Murmur Gastrointestinal: Normal Bowel Sounds, Soft, Tenderness (mild, diffuse) Extremity: Normal Capillary Refill, No Calf Tenderness, No Pedal Edema Neurologic/Psychiatric: Alert, Oriented x3, Normal Mood/Affect Results Results/Procedures Labs Laboratory Tests 12/07/20 18:00 12/08/20 05:16 Patient resulted labs reviewed. Imaging: Reviewed Imaging Report Imaging [facility], [place] NAME: TELLO WESTON Gerda [facility] REC#: [id number] PT STATUS: ADM Norris : 1955 PHYSICIAN: HAYDEE CHANCE MD ADMIT DATE: 12/07/20 Signed Date of Exam:12/07/20 CT ABDOMEN/PELVIS W PROCEDURE: CT abdomen and pelvis with contrast. TECHNIQUE: Multiple contiguous axial images were obtained through the abdomen and pelvis after administration of intravenous contrast. Auto Exposure Controls were utilized during the CT exam to meet ALARA standards for radiation dose reduction. All CT scans use one or more of the following dose optimizing techniques: automated exposure control, MA and/or KvP adjustment based on patient size and exam type or iterative reconstruction. INDICATION: Nausea, vomiting, diarrhea, shortness of air with fatigue. Recent Covid. Sinus infection. COMPARED with study 01/13/2020. FINDINGS: There is an elevated intestinal fluid load throughout the length of the small bowel, mildly ectatic throughout but no transition zone. Increased fluid load extends into the colon all the way through the level of the sigmoid. This may reflect a hypermotile/diarrheal state but correlate for nonspecific enterocolitis. There was no significant small or large bowel wall thickening and there was no perienteric or pericolonic edema. No abnormal intestinal enhancement. No vascular obstruction or thrombus. No pneumatosis or free gas. No ascites, abscess, hematoma or acute fluid collection. The liver, gallbladder, bile ducts, spleen, adrenals and pancreas all unremarkable. The unobstructed kidneys normal. The aortoiliac and mesenteric vessels patent and nonaneurysmal. Urinary bladder unremarkable. There are old healed deformities to left medial pubic bone. IMPRESSION: Increased small and large bowel intestinal fluid load without transition zone or obstructive features. This may be mere hypermotile diarrheal state however nonspecific enterocolitis could not be excluded. No abscess, obstruction or perforation and no urinary tract or hepatobiliary abnormality found. Dictated by: Dictated on workstation # [id number] Dict: 12/07/202107 Trans: 12/07/202208 [facility] [phone] Interpreted by: AMANDA RODNEY Electronically signed by: AMANDA RODNEY 12/07/202208 Assessment/Plan Admission Diagnosis Enterocolitis Admission Status: Observation Assessment and Plan Enterocolitis IBS Stool cultures and c diff ordered If no BM by tomorrow will DC c diff order as likely not c diff without multiple stools Continue IVF [place] diet PPI antiemetics prn Generalized weakness PT IVF Likely debility from multiple recent illness and cumulative impact HTN Continue home losartan DVT ppx: Lovenox Diagnosis/Problems Diagnosis/Problems (1) Enterocolitis (2) Abdominal pain, generalized Status: Acute (3) Generalized weakness Status: Acute (4) Nausea vomiting and diarrhea Status: Acute (5) History of duodenal ulcer (6) Uncontrolled hypertension Status: Acute FRANK ESCOBEDO MD Dec 08, 2020 11:37
[2020-12-08] MEDS: SUCRALFATE 1 GM (CARAFATE) TAB PO SCH ×3 (12:04→20:38)
[2020-12-08] MEDS: PARoxetine 20 MG (PAXIL) TAB PO SCH (12:05)
[2020-12-08] MEDS: FLUTICASONE NASAL SPRAY (FLONASE) 16 GM BTL NS SCH (12:05)
[2020-12-08] MEDS: LOSARTAN 100 MG (COZAAR) TABLET PO SCH (12:06)
[2020-12-08] MEDS: PANTOPRAZOLE 40 MG (PROTONIX) TAB PO SCH (12:07)
[2020-12-08] MEDS: ACETAMINOPHEN 325 MG TABLET PO PRN (13:20)
--- NOTE | 2020-12-08 16:02 | Physical Therapy Evaluation ---
PT Evaluation-General Medical Diagnosis Admission Date Dec 07, 2020 at 21:44 Medical Diagnosis: IBS, weakness, abdominal pain, nausea and vomitting Onset Date: Dec 07, 2020 Therapy Diagnosis Therapy Diagnosis: Gait deficit, strength deficit Height/Weight Height (Feet): 5 Height (Inches): 7.00 Weight (Pounds): 182 Weight (Ounces): 0.0 Precautions Precautions/Isolations: Contact Isolation Referral Physician: Dr. Romero Reason for Referral: Evaluation/Treatment Medical History Pertinent Medical History: HTN Social History Home: [facility] Current Living Status: Spouse Entry Into Home: Stairs With Railing PT Steps Into Home: 8 PT Steps Inside Home: 8 Prior Prior Level of Function SCALE: Activities may be completed with or without assistive devices. 4-Xuphdoycjf-jzqzrsh completes the activity by him/herself with no assistance from a helper. 5-Set-up or Clean-up Assistance-helper sets up or cleans up; patient completes activity. [place] assists only prior to or following the activity. 4-Supervision or Touching Assistance-helper provides verbal cues and/or touching/steadying and/or contact guard assistance as patient completes activity. Assistance may be provided throughout the activity or intermittently. 3-Partial/Moderate Assistance-helper does LESS THAN HALF the effort. [place] lifts, holds or supports trunk or limbs, but provides less than half the effort. 2-Substantial/Maximal Assistance-helper does MORE THAN HALF the effort. [place] lifts or holds trunk or limbs and provides more than half the effort. 8-Cbuyjtena-flfoim does ALL the effort. Patient does none of the effort to complete the activity. Or, the assistance of 2 or more helpers is required for the patient to complete the activity. If activity was not attempted, code reason: 7-Patient Refused. 9-Not Applicable-not attempted and the patient did not perform the activity before the current illness, exacerbation or injury. 10-Not Attempted due to Environmental Limitations-(lack of equipment, weather restraints, etc.). 88-Not Attempted due to Medical Conditions or Safety Concerns. Bed Mobility: 6 Transfers (B,C,W/C): 6 Gait: 6 Stairs: 6 Indoor Mobility (Ambulation): Independent Stairs: Independent Prior Devices Use: None PT Evaluation-Current Subjective Patient reports pain at 8/10 in her back and knees. Reports she has felt nauseated most of today, but is doing a little better at the moment. Pt/Family Goals Return to home at [facility] Objective Patient Orientation: Person, Time, Situation Attachments: IV ROM/Strength ROM Lower Extremities WFLs bilaterally all planes Strength Lower Extremities 3+/5 bilaterally all hip, knee and ankle planes Sensory Vision: Wears Glasses Hearing: Functional Sensation Right Lower Extremit: Intact Sensation Left Lower Extremity: Intact Transfers Roll Left to Right (QC): 4 Sit to Lying (QC): 4 Lying to Sitting/Side of Bed(Q: 4 Sit to Stand (QC): 3 Chair/Uvj-fx-Pfjsc Xfer(QC): 3 Gait Does the Patient Walk?: Yes Mode of Locomotion: Walk Walk 10 feet (QC): 4 Walk 50 ft with 2 Turns(QC): 4 Distance: 100 feet Gait Assistive Device: FWW Comments/Gait Description Patient ambulates with forward trunk posture, rounded shoulders and uses the IV pole for support. Mildly narrow LINDA, and shortened stride length Wheelchair Training Does the Pt Use a Wheelchair?: No Balance Sitting Static: Good Sitting Dynamic: Good Standing Static: Fair Standing Dynamic: Fair Treatment Visit, Eval Assessment/Needs Patient tolerated treatment fair, however fatigued quickly at mid-walk. Patient performs all observed bed mobility and transfers with SBA/min A. Patient ambulates 100 feet with FWW, with CGA and verbal cues for safety, progression, balance and posture. Patient in bed post treatment with all needs met, nursing notified, call light in reach and daughter in the room. Rehab Potential: Good Equipment Needs unknown at this time. PT [place] Pneumatic Goals Fdc Goals PT Fdc Goals Time Frame: Dec 29, 2020 Roll Left & Right (QC): 6 Sit to Lying (QC): 6 Lying-Sitting on Side/Bed(QC): 6 Sit to Stand (QC): 6 Chair/Hcv-pn-[place] Xfer(QC): 6 Toilet Transfer (QC): 6 Car Transfer (QC): 6 Does the Patient Walk: Yes Walk 10 feet (QC): 6 Walk 50ft with 2 Turns (QC): 6 Walk 150 ft (QC): 6 1 Step (curb) (QC): 5 4 Steps (QC): 5 12 Steps (QC): 5 PT Plan Problem List Problem List: Activity Tolerance, Functional Strength, Safety, Balance, Gait, Transfer, Bed Mobility, ROM Treatment/Plan Treatment Plan: Continue Plan of Care Treatment Plan: Bed Mobility, Education, Functional Activity [place], Functional Strength, Group Therapy, Gait, Safety, Therapeutic Exercise, Transfers Treatment Duration: Mar 02, 2021 Frequency: 6 times per week Safety Risks/Education Patient Education: Gait Training, Transfer Techniques Teaching Recipient: Patient, Family Teaching Methods: Demonstration, Discussion Response to Teaching: Verbalize Understanding, Return Demonstration Discharge Recommendations Target Placement Home with assistance as needed. Time/GCodes Time In: 1530 Time Out: 1550 Total Billed Treatment Time: 20 Total Billed Treatment Visit, BONNIE Singh PT Dec 08, 2020 16:02
[2020-12-09] MEDS: LACTATED RINGERS 1,000 ML IV SCH (02:27)
[2020-12-09] MEDS: ACETAMINOPHEN 325 MG TABLET PO PRN ×2 (02:33→09:07)
[2020-12-09 04:59] VITALS: BP 167/75
[2020-12-09] MEDS: SUCRALFATE 1 GM (CARAFATE) TAB PO SCH (05:12)
[2020-12-09 05:52] LABS: HEMATOCRIT 36 % (35-52); HEMOGLOBIN 12.2 g/dL (11.5-16.0); MEAN CORPUSCULAR HEMOGLOBIN 33 pg (25-34); MEAN CORPUSCULAR HGB CONC 34 g/dL (32-36); MEAN CORPUSCULAR VOLUME 98 fL (80-99); PLATELET COUNT 186 10^3/uL (130-400); WHITE BLOOD COUNT 2.8 10^3/uL (4.3-11.0)
[2020-12-09 06:05] LABS: POTASSIUM 3.3 MMOL/L (3.6-5.0)
[2020-12-09 06:11] LABS: CREATININE SERUM 0.54 MG/DL (0.60-1.30)
[2020-12-09] MEDS ORDERED: KCL 20 MEQ TAB (K-DUR) PO ONE (07:45)
[2020-12-09 07:57] VITALS: BP 170/73
[2020-12-09] MEDS: PARoxetine 20 MG (PAXIL) TAB PO SCH (09:08)
[2020-12-09] MEDS: FLUTICASONE NASAL SPRAY (FLONASE) 16 GM BTL NS SCH (09:09)
[2020-12-09] MEDS: LOSARTAN 100 MG (COZAAR) TABLET PO SCH (09:09)
[2020-12-09] MEDS: PANTOPRAZOLE 40 MG (PROTONIX) TAB PO SCH (09:09)
--- NOTE | 2020-12-09 09:16 | Physical Therapy Daily Note ---
PT Daily Note-Current Subjective Patient reports she is feeling much better today. AGrees to PT. Mental Status Patient Orientation: Normal For Age Attachments: IV Transfers SCALE: Activities may be completed with or without assistive devices. 5-Eobkfezosf-sllhxio completes the activity by him/herself with no assistance from a helper. 5-Set-up or Clean-up Assistance-helper sets up or cleans up; patient completes activity. [place] assists only prior to or following the activity. 4-Supervision or Touching Assistance-helper provides verbal cues and/or touching/steadying and/or contact guard assistance as patient completes activity. Assistance may be provided throughout the activity or intermittently. 3-Partial/Moderate Assistance-helper does LESS THAN HALF the effort. [place] lifts, holds or supports trunk or limbs, but provides less than half the effort. 2-Substantial/Maximal Assistance-helper does MORE THAN HALF the effort. [place] lifts or holds trunk or limbs and provides more than half the effort. 3-Bkxqrpuvb-azmnic does ALL the effort. Patient does none of the effort to complete the activity. Or, the assistance of 2 or more helpers is required for the patient to complete the activity. If activity was not attempted, code reason: 7-Patient Refused. 9-Not Applicable-not attempted and the patient did not perform the activity before the current illness, exacerbation or injury. 10-Not Attempted due to Environmental Limitations-(lack of equipment, weather restraints, etc.). 88-Not Attempted due to Medical Conditions or Safety Concerns. Lying to Sitting/Side of Bed(Q: 6 Sit to Stand (QC): 6 Chair/Niu-wo-Zeyqb Xfer(QC): 6 Gait Training Does the Patient Walk?: Yes Distance: 300' Walk 10 feet (QC): 6 Walk 50 ft with 2 Turns(QC): 6 Walk 150 ft (QC): 6 Gait Assistive Device: FWW requested FWW for stability Assessment Patient up in recliner with needs met. Plan dismissal this week to home with spouse. PT Mother'S Helper Goals Skilled Nursing Goals PT Skilled Nursing Goals Time Frame: Dec 29, 2020 Roll Left & Right (QC): 6 Sit to Lying (QC): 6 Lying-Sitting on Side/Bed(QC): 6 Sit to Stand (QC): 6 Chair/Wag-ux-Gcoxo Xfer(QC): 6 Toilet Transfer (QC): 6 Car Transfer (QC): 6 Does the Patient Walk: Yes Walk 10 feet (QC): 6 Walk 50ft with 2 Turns (QC): 6 Walk 150 ft (QC): 6 1 Step (curb) (QC): 5 4 Steps (QC): 5 12 Steps (QC): 5 PT Plan Treatment/Plan Treatment Plan: Continue Plan of Care Treatment Plan: Bed Mobility, Education, Functional Activity [place], Functional Strength, Group Therapy, Gait, Safety, Therapeutic Exercise, Transfers Treatment Duration: Mar 02, 2021 Frequency: 6 times per week Time/GCodes Time In: 836 Time Out: 850 Total Billed Treatment Time: 14 Total Billed Treatment 1 visit FA 14 min FELICE ZEPEDA PT Dec 09, 2020 09:16
--- NOTE | 2020-12-09 11:20 | Discharge Summary ---
Diagnosis/Chief Complaint Date of Admission Dec 07, 2020 at 21:44 Date of Discharge Admission Diagnosis Enterocolitis Primary Care Akshat Calvillo MD Discharge Diagnosis (1) Enterocolitis (2) Abdominal pain, generalized Status: Acute (3) Generalized weakness Status: Acute (4) Nausea vomiting and diarrhea Status: Acute (5) History of duodenal ulcer (6) Uncontrolled hypertension Status: Acute Discharge Summary Discharge Physical Exam Allergies: Coded Allergies: No Known Drug Allergies (Unverified , 02/11/20) Vitals & I&Os Vital Signs Date Time Temp Pulse Resp B/P (MAP) Pulse Ox O2 Delivery O2 Flow Rate FiO2 12/09/20 12:00 36.0 89 63 179/81 (113) 98 Room Air General Appearance: No Apparent Distress, WD/WN Respiratory: Lungs Clear, No Respiratory Distress Cardiovascular: Regular Rate, Rhythm, No Murmur Gastrointestinal: Normal Bowel Sounds, Non Tender, Soft Neurologic/Psychiatric: Alert, Oriented x3 Hospital Course Patient was admitted to the hospital due to generalized weakness and dehydration. She had enterocolitis on CT of her abdomen but no other acute findings. Stool cultures and C. difficile were ordered but she was unable to have a bowel movement during her 2-day hospital stay so these were canceled. With IV fluids and antiemetics she improved significantly. She was able to ambulate independently was discharged home in improved condition to follow-up with her primary care doctor, Dr. Calvillo, to follow-up this hospital stay. Labs (last 24 hrs) Microbiology 12/07/20 Throat Culture - Final, Complete No Beta Strep isolated 12/07/20 Blood Culture - Preliminary, Resulted No growth 12/07/20 Urine Culture - Final, Complete Gram Pos Mixed Bacterial Marianela Patient resulted labs reviewed. Pending Labs Imaging: Reviewed Imaging Report Discussion & Recommendations Discharge Planning: >30 minutes discharge planning Discharge Home Medications: Active Scripts Active Ondansetron Odt (Ondansetron) 4 Mg Tab.rapdis 4 Mg PO Q4H Tramadol HCl 50 Mg Tablet 50 Mg PO Q6HR PRN Reported Tylenol (Acetaminophen) 325 Mg Tablet 650-975 Mg PO Q8H PRN Fluticasone Propionate 16 Gm [place].susp 2 Sprays NSEACH DAILY Vyzulta (Latanoprostene Bunod) 5 Ml Drops 1 Drop OU HS Sucralfate 1 Gm Tablet 1 Gm PO ACHS Pantoprazole Sodium 40 Mg Tablet.dr 40 Mg PO DAILY Paroxetine HCl 20 Mg Tablet 20 Mg PO HS Losartan Potassium 100 Mg Tablet 100 Mg PO DAILY Instructions to patient/family Please see electronic discharge instructions given to patient. FRANK ESCOBEDO MD Dec 09, 2020 11:20
[2020-12-09] MEDS ORDERED: ONDA4TAB11 PO (11:23)
[2020-12-09] MEDS ORDERED: TRM50T PO (11:23)
--- NOTE | 2020-12-09 11:28 | Discharge Inst-Simple/Standard ---
Discharge Inst-Standard Discharge Medications New, Converted or Re-Newed RX: Transmitted to Pharmacy Patient Instructions/Follow Up Plan of Care/Instructions/FU: Please continue to take your medications as written. Please follow up with your PCP Dr Calvillo in the next week to follow up this hospital stay. Activity as Tolerated: Yes Discharge Diet: No Restrictions Return to The Hospital For: Chest pain, shortness of breath, fever, weakness, nausea, vomiting, if you feel you are getting worse. FRANK ESCOBEDO MD Dec 09, 2020 11:28
[2020-12-09 12:00] VITALS: BP 179/81
== END 2020-12-09 13:09 | disposition home or self-care (01) ==
LOC: EDUNIT# 17:34 → ER 17:36 → UNDOADMOB 21:44 → 4TH 21:44 → UNDODISOB 12-09 13:47
PROVIDERS: ADMIT Internal Medicine; ATTEND Internal Medicine
DX: K52.9 Noninfective gastroenteritis and colitis, unspecified (principal); R11.2 Nausea with vomiting, unspecified; R10.84 Generalized abdominal pain; R42 Dizziness and giddiness; I10 Essential (primary) hypertension; K21.9 Gastro-esophageal reflux disease without esophagitis; M19.90 Unspecified osteoarthritis, unspecified site; G89.29 Other chronic pain; M54.9 Dorsalgia, unspecified; I16.0 Hypertensive urgency; R51.9 Headache, unspecified; Z90.710 Acquired absence of both cervix and uterus; Z90.89 Acquired absence of other organs; Z87.11 Personal history of peptic ulcer disease; Z79.899 Other long term (current) drug therapy; Z80.9 Family history of malignant neoplasm, unspecified
CPT/HCPCS: 36415; 71045; 74177; 80048; 80053; 81000; 82550; 83605; 83690; 83735; 83880; 84145; 84443; 84484; 85007; 85025; 85027; 85379; 85610; 85730; 86141; 87040; 87088; 87430; 87636; 87804; 93005; 96374; 96375; G0378